=== PATIENT | female | born 1950 | race Caucasian/White ===

== ENCOUNTER → 2017-06-08 | Outpatient (CLI) | payer MEDICARE ==
[~2017-06-08] MED LIST: ACET-1175 PO; ACT35 PO; BACL10TA PO; BACLOFEN PUMP; CALC600T9 PO; CHOL100010 PO; DOCU-94 PO; GADAVIST IV PRN; INTE1KIT4 INJ; MULT-506 PO
--- NOTE | 2017-06-08 12:27 | DIAGNOSTIC IMAGING REPORT ---
KUB CLINICAL HISTORY: Multiple sclerosis. Pain pump positioning. FINDINGS: 2 AP supine abdominal radiographs are obtained. No prior studies are available for comparison at the time of dictation. There is a nonobstructed abdominal bowel gas pattern noting moderate colonic fecal retention. A pain pump projects over the right lower quadrant. Intrathecal leads are in place. A lead projects over the T6 vertebral body. The catheter is intact as visualized. Numerous pelvic phleboliths are observed. Indeterminate calcifications project over the upper abdomen and may be located within the bowel. The lung bases are clear as imaged. The skeletal structures are osteopenic. Mild lumbosacral spondylosis is observed. Large left gluteal calcifications are partially imaged. IMPRESSION: 1. Nonobstructed abdominal bowel gas pattern noting moderate colonic fecal retention. 2. A pain pump projects over the right lower quadrant. The tip of the catheter projects over T6. Electronically signed by: Manuelito Caal M.D. 06/08/2017 12:25 PM Dictated Date/Time: 06/08/2017 12:23 PM
--- NOTE | 2017-06-08 13:44 | DIAGNOSTIC IMAGING REPORT ---
BRAIN COMBO FOR MS CLINICAL HISTORY: 66 years-old Female presenting with multiple sclerosis. TECHNIQUE: Multisequence, multiplanar MR imaging of the brain was performed before and after the administration of intravenous contrast. IV contrast: 6.5 mL of Gadavist. COMPARISON: 09/14/2013. FINDINGS: Ventricular and sulcal prominence proportional to diffuse parenchymal volume loss. Multifocal T2/FLAIR hyperintense foci in the periventricular and subcortical white matter, some of which correlate to T1 hypointense foci. This is in a similar distribution as on prior exam. The brainstem is unaffected. No convincing evidence of new foci of disease. No restricted diffusion or enhancement to suggest active disease. Atrophy of the posterior body of the corpus callosum unchanged. Enhancing linear structure along the lateral aspect of the left caudate likely developmental venous anomaly. No mass effect or midline shift. No hemorrhage or acute territorial infarct. No extra-axial fluid collection. T2 skull base flow voids preserved. Partial opacification of the left posterior ethmoid air cells. IMPRESSION: Stable appearance of the periventricular and subcortical white matter signal abnormality without evidence of restricted diffusion or enhancement to suggest active disease. This is a nonspecific appearance and could be compatible with demyelinating disease among other etiologies. Electronically signed by: Willie Viveros M.D. 06/08/2017 1:43 PM Dictated Date/Time: 06/08/2017 1:36 PM
--- NOTE | 2017-06-08 14:03 | DIAGNOSTIC IMAGING REPORT ---
MRI CERVICAL SPINE COMBO CLINICAL HISTORY: G35 Multiple [id number] TECHNIQUE: Sagittal and axial T1, T2 and STIR images were obtained. Imaging was performed before and after the administration of 6.5 cc of intravenous Gadavist COMPARISON STUDY: 09/14/2013 There are no suspicious areas of marrow replacement. There is mild thinning of the cervical spinal cord most pronounced at the C4-5 through C6-7 levels. C2-3: There is no evidence of disc bulge or focal herniation. There is no spinal or foraminal stenosis. C3-4: There is a small central disc protrusion. There is no spinal or foraminal stenosis. C4-5: There is a small central disc protrusion. There is secondary deformity of the anterior aspect the thecal sac. There is no significant foraminal narrowing C5-6 :There is a mild circumferential disc bulge. There is mild spinal stenosis. There is mild left-sided foraminal narrowing. C6-7: There is a circumferential disc bulge. There is no significant spinal or foraminal stenosis. C7-T1: There is no evidence of disc bulge or focal herniation. There is no evidence of spinal or foraminal stenosis. Postcontrast images reveal no pathologically enhancing lesions. IMPRESSION: 1. Multilevel spondylitic changes similar to the preceding 2012 study. Mild spinal stenosis at the C5-6 level. 2. Mild cervical cord thinning similar to the prior study 3. No focal cord lesions identified. No evidence of pathologic enhancement Electronically signed by: Kartik Nuno M.D. 06/08/2017 2:02 PM Dictated Date/Time: 06/08/2017 1:54 PM
== END | disposition home or self-care (01) ==
LOC: C.MRI 11:39
PROVIDERS: ATTEND Psychiatry & Neurology Neurology
DX: G35 Multiple sclerosis (principal); Z12.31 Encounter for screening mammogram for malignant neoplasm of breast

== ENCOUNTER → 2017-06-08 | Outpatient (CLI) | payer MEDICARE ==
[~2017-06-08] MED LIST changes: -GADAVIST IV PRN
--- NOTE | 2017-06-20 14:33 | MAMMOGRAPHY REPORT ---
THIS REPORT HAS BEEN AMENDED. BILATERAL DIGITAL SCREENING MAMMOGRAM WITH CAD: 06/08/2017 CLINICAL HISTORY: Routine screening. Patient has no complaints. TECHNIQUE: Bilateral CC and MLO views were obtained. Current study was also evaluated with a Compute r Aided Detection (CAD) system. COMPARISON: No prior exams were available for comparison. BREAST COMPOSITION: There are scattered areas of fibroglandular density in both breasts. FINDINGS: The exam is suboptimal due to inability of the patient to adequately position for the exam, particularly the MLO views. There are a few benign-appearing coarse calcifications and mild vascular calcifications in the breast s. There is a 4 mm focal asymmetry in the approximate 9:00 middle one third of the left breast, for which comparison to prior outside mammograms would be useful to assess stability. If the outside exa ms are not obtained in a timely manner, additional spot compression tomosynthesis views and possible ultrasound are recommended. In addition, repeat attempt should be made at positioning for the right MLO view. No other suspicious mass, architectural distortion or cluster of microcalcifications is seen bilzulaya dali. IMPRESSION: ACR BI-RADS CATEGORY 0: INCOMPLETE EVALUATION: NEED ADDITIONAL IMAGING EVALUATION The 4 mm focal asymmetry in the 9:00 left breast is indeterminate. Comparison to prior outside mammog prince would be useful to assess stability. If the outside exams are not obtained in a timely manner, additional spot compression tomosynthesis views and possible ultrasound are recommended. In addition , repeat attempt should be made at positioning for the right MLO view. The patient will be called to schedule an appointment. Approximately 10% of breast cancers are not detected with mammography. A negative mammographic report should not delay biopsy if a clinically suggestive mass is present. Nani Davis M.D. ay/:06/20/2017 14:08:39 Marketing Community Liaison: Darlin CESPEDES(Noe)([place])([place]), [facility] letter sent: Need Priors 0 BI-RADS Code: ACR BI-RADS Category 0: Incomplete Evaluation: Need Additional Imaging Evaluation AMENDMENT: 06/29/2017 Nani Davis M.D. Prior outside mammograms from [facility] dated 09/07/2013, 03/09/2013, 09/28/2011, 06/19/2010, 12/18/2009, 06/10/2009, 03/11/2009, 09/12/2008, 02/28/2008 and breast ultrasounds dated 03/09/2013 an d 12/18/2009 became available for review. The 4 mm focal asymmetry in the 9:00 left breast is new co mpared to prior exams. Additional spot compression tomosynthesis views and targeted ultrasound is re commended. At the time of diagnostic workup in the left breast, the right MLO view should be repeate d for technical factors, to include more posterior tissue. Amended BI-RADS: ACR BI-RADS Category 0: Incomplete Evaluation: Need Additional Imaging Evaluation letter sent: Addl Imaging 0
== END | disposition home or self-care (01) ==
LOC: C.MAMM 10:37
PROVIDERS: ATTEND Family Medicine
DX: Z12.31 Encounter for screening mammogram for malignant neoplasm of breast (principal)

== ENCOUNTER → 2017-07-14 | Outpatient (CLI) | payer MEDICARE ==
--- NOTE | 2017-07-14 12:44 | MAMMOGRAPHY REPORT ---
UNILATERAL LEFT DIGITAL DIAGNOSTIC MAMMOGRAM TOMOSYNTHESIS AND TARGETED LEFT ULTRASOUND: 07/14/2017 CLINICAL HISTORY: 66-year-old woman called back from screening mammography for a new 4.5 mm focal asy mmetry in the approximate 9:00 left breast, not present on prior outside mammograms. TECHNIQUE: Spot compression left CC and MLO to most of this is images were obtained. COMPARISON: Comparison is made to exams dated: 06/08/2017 mammogram - [facility], mammogram, 03/09/2013 mammogram, 09/28/2011 mammogram, 06/19/2010 mammogram, and 12/18/2009 mammo gram - [facility]. BREAST COMPOSITION: There are scattered areas of fibroglandular density in the left breast. FINDINGS: Best seen on the spot compression left CC view is a persistent partially circumscribed and lobulated, 4.4 x 4.3 mm low-density mass.It architectural distortion or microcalcifications. Further evaluation with ultrasound was performed. A repeat right MLO view was obtained. There are vascular calcifications and scattered benign-appeari ng round microcalcifications. More posterior tissue is included when comparing to the previous MLO v iew and no suspicious abnormality is identified. Targeted ultrasound was performed in the medial left breast. In the 9:00 axis, 5 cm from the nipple, there is a lobulated anechoic benign cyst measuring 4.4 x 2.1 x 2.4 mm. This correlates well in sha pe and location as the mammographic mass and is benign. IMPRESSION: ACR BI-RADS CATEGORY 2: BENIGN, TARGETED ULTRASOUND ACR BI-RADS CATEGORY 2: BENIGN The 4.5 mm nodular asymmetry identified mammographically correlates with a benign lobulated anechoic cyst in the 9:00 left breast on ultrasound. Given the benign sonographic features, no further workup is needed at this time. Recommend follow-up at time of next annual screening mammogram. These resu lts and recommendations were discussed with the patient at the time of the exam. Approximately 10% of breast cancers are not detected with mammography. A negative mammographic report should not delay biopsy if a clinically suggestive mass is present. Nani Davis M.D. ay/:07/14/2017 11:58:09 Competitive Athlete: Yajaira CESPEDES(Noe)(M), [facility] letter sent: Normal /2 BI-RADS Code: ACR BI-RADS Category 2: Benign Ultrasound BI-RADS: ACR BI-RADS Category 2: Benign
== END | disposition home or self-care (01) ==
LOC: C.MAMM 10:48
PROVIDERS: ATTEND Specialist
DX: R92.8 Other abnormal and inconclusive findings on diagnostic imaging of breast (principal); N64.89 Other specified disorders of breast

== ENCOUNTER 2019-07-26 16:58 | Inpatient (IN) ==
[2019-07-26 17:42] LABS: Basophils # (auto) 0.01 K/uL (0-0.2); Basophils % (auto) 0.1 %; Hematocrit (blood only) 40.6 % (37-47); Hemoglobin 13.7 g/dL (12.0-16.0); Immature Granulocytes # (auto) 0.04 K/uL (0.00-0.02); Immature Granulocytes % (auto) 0.3 %; Lymphocytes % (auto) 3.9 %; Mean Corpuscular Hemoglobin 31.1 pg (25-34); Mean Corpuscular Hgb Conc 33.7 g/dL (32-36); Mean Corpuscular Volume 92.3 fL (80-100); Mean Platelet Volume 9.3 fL (7.4-10.4); Monocytes # (auto) 1.16 K/uL (0.11-0.59); Monocytes % (auto) 7.6 %; Neutrophils % (auto) 88.1 %; Platelet Count 273 K/uL (130-400); RDW Coefficient of Variation 15.6 % (11.5-14.5); RDW Standard Deviation 52.7 fL (36.4-46.3); White Blood Count 15.31 K/uL (4.8-10.8)
[2019-07-26 17:53] LABS: iSTAT Creatinine 0.3 mg/dl (0.6-1.3); iSTAT Hemoglobin 13.9 g/dl (12.0-16.0); iSTAT Ionized Calcium 1.09 mmol/l (1.12-1.32); iSTAT Potassium 3.7 mEq/L (3.3-5.0)
[2019-07-26 17:59] LABS: INR 1.2 (0.9-1.1); Partial Thromboplastin Ratio 1.1; Partial Thromboplastin Time 30.5 Seconds (21.0-31.0); Prothrombin Time 12.2 Seconds (9.0-12.0)
--- NOTE | 2019-07-26 18:01 | XRay Report ---
XR chest 1V portable CLINICAL HISTORY: Sepsis COMPARISON STUDY: No previous studies for comparison. FINDINGS: Evaluation is difficult given suboptimal positioning. There is no pneumothorax or pleural e ffusion. Note is made of mild elevation of the right hemidiaphragm. There is no evidence for pulmonar y edema. There is mild right basilar opacity. Cardiomediastinal silhouette is unremarkable allowing f or patient rotation. IMPRESSION: 1. Compromised exam given difficulty positioning. Right basilar opacity which may reflect consolidati on or atelectasis. Radiographic follow up is recommended. 2. Mild elevation of the right hemidiaphragm. Electronically signed by: Frederick Cheng M.D. 07/26/2019 6:00 PM
[2019-07-26 18:06] LABS: BUN Creatinine Ratio 19.3 (10-20); Calcium 9.1 mg/dl (8.5-10.1); Creatinine Clr Calc Pharmacy 111.1 ml/min; Est GFR (African American) 119.3; Est GFR (Non-African American) 102.9; Potassium 3.7 mmol/L (3.5-5.1)
[2019-07-26] MEDS ORDERED: PIPERACILLIN/TAZOBACTAM 4.5 GM in DEXTROSE 5% 100 ML IV STA (18:07)
[2019-07-26] MEDS ORDERED: PIPERACILL/TAZOBAC CONSULT ACTIVE PRN (18:07)
[2019-07-26] MEDS ORDERED: LEVOFLOXACIN/D5W 750 MG/150 ML BAG IV STA (18:07)
[2019-07-26 18:09] LABS: Albumin Globulin Ratio 0.6 (0.9-2); Bilirubin,Total 0.6 mg/dl (0.2-1); Globulin 5.1 gm/dl (2.5-4.0); Total Protein 8.1 gm/dl (6.4-8.2)
[2019-07-26] MEDS ORDERED: PIPERACILLIN/TAZOBACTAM 4.5 GM/120 ML BAG IV STA (18:19)
--- NOTE | 2019-07-26 18:55 | Emergency Department Note ---
Entered by Malou Jay acting as a scribe for Cleve Post MD History of Present Illness General Chief complaint: Respiratory Problems Stated complaint: HARD TIME TALKING, SWALLOWING, RESP PROBLEMS Source: patient and family () Mode of arrival: wheelchair Limitations: no limitations History of Present Illness Onset (ago): day(s) 3 Location: chest Radiation: non-radiation Pain Consistency: + constant Relieved By: + none Exacerbated By: + none Associated symptoms: + cough and + fever/chills Treatments prior to arrival: none The patient is a 68 year old female who presents to the ED with complaints of breathing difficulties for the past few days. She is accompanied by her . He states she is having trouble breathing and speaking due to being out of breath. The patient is wheelchair bound due to a history of MS. Her denies any prior history of lung problems. The patient denies any chest pain. Her states she went to her local hospital yesterday and she had chest X- ray and was told she has "sinus drip" but no pneumonia. The patient did "cough up yellow stuff" last night. She also had a fever. Her denies any history of PE. The patient does not take regular steroids. She denies any leg swelling or pain. Home Medications Home Medications Medication Instructions Recorded Confirmed Type calcium carbonate [Calcium 500] 1 tab PO TID 01/18/19 07/26/19 History cholecalciferol (vitamin D3) 0 tab PO DAILY 01/18/19 07/26/19 History [Vitamin D3] multivitamin 1 tab PO DAILY 01/18/19 07/26/19 History risedronate [Actonel] 1 tab PO WK 01/18/19 07/26/19 History nitrofurantoin macrocrystal 50 mg 50 mg PO BID #90 cap 07/23/19 07/26/19 Rx capsule albuterol sulfate [ProAir HFA] 2 puff INHALATION Q4 PRN 07/26/19 07/26/19 History baclofen 0 mcg CONTINUOUS INTRATHECAL 07/26/19 07/26/19 History INFUSION CONTINOUS cefuroxime axetil 500 mg PO BID 07/26/19 07/26/19 History ocrelizumab [Ocrevus] 300 mg IV .[id number] 07/26/19 07/26/19 History Allergies Allergy/AdvReac Type Severity Reaction Status Date / Time No Known Allergies Allergy Verified 07/26/19 17:47 Past Med/Surg History Medical History Presence of intrathecal pump BACLOFEN Spasticity Urinary retention STRAIGHT CATH 2X DAILY Multiple sclerosis UNABLE TO MOVE LE/PARAPESIS 2/2 PROGRESSIVE MULTIPLE SCLEROSIS; LIMITED MOVEM ENT IN HANDS/UE Surgical History Cyst LEFT HIP CALCIUM DEPOSIT REMOVAL History of colonoscopy S/P insertion of intrathecal pump History of tooth extraction Social History Preferred Language: Gabonese Communication Ability: Effective 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 and A total of 10 systems reviewed and were otherwise negative Physical Exam Vital Signs Vital Signs - 24 hr 07/26/19 17:05 07/26/19 17:37 07/26/19 17:39 Temperature 37.6 C H Temperature Source Oral Sepsis Recent Fever Within 48 Hours Yes Sepsis Action Taken by Nursing No Action Required Pulse Rate 121 H 117 H Pulse Rate from SpO2 Sensor Respiratory Rate 24 24 Respiratory Effort / Characteristics Non-Labored Non-Labored Respiratory Depth Normal Normal Respiratory Pattern Regular Regular Blood Pressure 166/86 H Blood Pressure Mean 112 Pulse Oximetry 87 L 87 L Oxygen Delivery Method Nasal Cannula Nasal Cannula Nasal Cannula Oxygen Flow Rate 07/26/19 17:58 07/26/19 18:00 07/26/19 18:15 Temperature Temperature Source Sepsis Recent Fever Within 48 Hours Sepsis Action Taken by Nursing Pulse Rate 114 H 116 H 115 H Pulse Rate from SpO2 Sensor 114 H 116 H 115 H Respiratory Rate 26 H 28 H 26 H Respiratory Effort / Characteristics Respiratory Depth Respiratory Pattern Blood Pressure 164/91 H 161/92 H 168/90 H Blood Pressure Mean 115 115 116 Pulse Oximetry 98 98 95 Oxygen Delivery Method Nasal Cannula Nasal Cannula Nasal Cannula Oxygen Flow Rate 2 07/26/19 18:30 Temperature Temperature Source Sepsis Recent Fever Within 48 Hours Sepsis Action Taken by Nursing Pulse Rate 114 H Pulse Rate from SpO2 Sensor 114 H Respiratory Rate 26 H Respiratory Effort / Characteristics Respiratory Depth Respiratory Pattern Blood Pressure 155/90 H Blood Pressure Mean 111 Pulse Oximetry 97 Oxygen Delivery Method Nasal Cannula Oxygen Flow Rate 2 Constitutional: Vital signs reviewed. The patient is in respiratory distress. She is hypoxemic on room air. Eyes: Pupils are equal round reactive to light. Conjunctiva are noninjected. ENT: Pharynx is clear without erythema or exudate. Mucous membranes are moist. Neck supple without meningeal signs. Respiratory: Patient is tachypneic. Rhonchi diffusely. Breath sounds are equal bilaterally. Cardiovascular: Tachycardic heart rate, regular rhythm. No rubs or gallops. GI: Soft, nondistended and nontender. Bowel sounds are present. Musculoskeletal: No peripheral edema. No lower extremity tenderness. Integumentary: No cyanosis. Neurological: The patient is awake and alert. Wheelchair bound. Psychiatric: Normal affect. Course 1713: The patient was evaluated in room A2 and a complete history and physical were performed. 180: I reassessed the patient at this time. Pulse ox is mid 90s on supplemental oxygen. Hypertensive. Discussed test results. Ordered IV a ntibiotics. 1837: Discussed the patient's case with Dr. Robyn Perea, [facility] Hospitalist. The patient will be evaluated for further management. Consultations Consultation #1: Discussed the patient's case with Dr. Robyn Perea, [facility] Hospitalist. The patient will be evaluated for further management. Time: 18:37 Administered Medications Levofloxacin/Dextrose (Levaquin/D5w) 750 mg in 150 mls @ 100 mls/hr IV Q24H STA; Protocol Stop: 07/26/19 19:36 Last Admin: 07/26/19 18:36 Dose: 100 mls/hr Documented by: [id number] Discontinued Medications Piperacillin Sod/Tazobactam Sod (Zosyn) 4.5 gm in 120 mls @ 240 mls/hr IV NOW STA Stop: 07/26/19 18:48 Last Admin: 07/26/19 18:36 Dose: 240 mls/hr Documented by: [id number] Medical Decision Making Differential Diagnosis The differential diagnoses considered include pneumonia, sepsis, bronchitis, PE and anemia. Medical Records Attestation: I reviewed the patient's medical records. I did perform a limited focused review of portions of the patient's old chart on the electronic medical record. The patient has had no recent pertinent visits to this hospital. Home Medications Current Medication List: was personally reviewed by me Laboratory Data Attestation: I reviewed the patient's lab results. Result diagrams: 07/26/19 17:34 07/26/19 17:34 Lab Results 07/26/19 07/26/19 07/26/19 Range/Units 17:34 17:34 17:34 WBC 15.31 H (4.8-10.8) K/uL RBC 4.40 (4.2-5.4) M/uL Hgb 13.7 (12.0-16.0) g/dL POC Hgb (12.0-16.0) g/dl Hct 40.6 (37-47) % POC Hct (37-47) % MCV 92.3 (80-100) fL MCH 31.1 (25-34) pg MCHC 33.7 (32-36) g/dL RDW Std Deviation 52.7 H (36.4-46.3) fL RDW Coeff of Ananya 15.6 H (11.5-14.5) % Plt Count 273 (130-400) K/uL MPV 9.3 (7.4-10.4) fL Immature Gran % (Auto) 0.3 % Neut % (Auto) 88.1 % Lymph % (Auto) 3.9 % [place] % (Auto) 7.6 % Eos % (Auto) 0.0 % Baso % (Auto) 0.1 % Immature Gran # (Auto) 0.04 H (0.00-0.02) K/uL Neut # (Auto) 13.50 H (1.4-6.5) K/uL Lymph # (Auto) 0.60 L (1.2-3.4) K/uL [place] # (Auto) 1.16 H (0.11-0.59) K/uL Eos # (Auto) 0.00 (0-0.5) K/uL Baso # (Auto) 0.01 (0-0.2) K/uL PT 12.2 H (9.0-12.0) Seconds INR 1.2 H (0.9-1.1) APTT 30.5 (21.0-31.0) Seconds PTT Ratio 1.1 POC Sodium (135-144) mEq/L Sodium 134 L (136-145) mmol/L POC Potassium (3.3-5.0) mEq/L Potassium 3.7 (3.5-5.1) mmol/L POC Chloride (101-112) mEq/L Chloride 97 L (98-107) mmol/L Carbon Dioxide 28 (21-32) mmol/L POC Total CO2 (24-31) mEq/l Anion Gap 9.0 (3-11) POC Anion Gap (16-25) mmol/L POC BUN (7-18) mg/dl BUN 9 (7-18) mg/dl Creatinine 0.46 L (0.6-1.2) mg/dl POC Creatinine (0.6-1.3) mg/dl Est Cr Clr Drug Dosing 111.1 ml/min Est GFR ( Amer) 119.3 Est GFR (Non-Af Amer) 102.9 BUN/Creatinine Ratio 19.3 (10-20) Glucose 91 (70-99) mg/dl POC Glucose (other) (70-99) mg/dl POC Lactic Acid David (0.90-1.70) mmol/L Calcium 9.1 (8.5-10.1) mg/dl POC Ioniz Calcium [place] (1.12-1.32) mmol/l Total Bilirubin 0.6 (0.2-1) mg/dl AST 23 (15-37) U/L ALT 19 (12-78) U/L Alkaline Phosphatase 92 (45-117) U/L POC Troponin I (0-0.045) ng/ml Total Protein 8.1 (6.4-8.2) gm/dl Albumin 3.0 L (3.4-5.0) gm/dl Globulin 5.1 H (2.5-4.0) gm/dl Albumin/Globulin Ratio 0.6 L (0.9-2) 07/26/19 07/26/19 07/26/19 Range/Units 17:37 17:38 17:41 WBC (4.8-10.8) K/uL RBC (4.2-5.4) M/uL Hgb (12.0-16.0) g/dL POC Hgb 13.9 (12.0-16.0) g/dl Hct (37-47) % POC Hct 41 (37-47) % MCV (80-100) fL MCH (25-34) pg MCHC (32-36) g/dL RDW Std Deviation (36.4-46.3) fL RDW Coeff of Ananya (11.5-14.5) % Plt Count (130-400) K/uL MPV (7.4-10.4) fL Immature Gran % (Auto) % Neut % (Auto) % Lymph % (Auto) % [place] % (Auto) % Eos % (Auto) % Baso % (Auto) % Immature Gran # (Auto) (0.00-0.02) K/uL Neut # (Auto) (1.4-6.5) K/uL Lymph # (Auto) (1.2-3.4) K/uL [place] # (Auto) (0.11-0.59) K/uL Eos # (Auto) (0-0.5) K/uL Baso # (Auto) (0-0.2) K/uL PT (9.0-12.0) Seconds INR (0.9-1.1) APTT (21.0-31.0) Seconds PTT Ratio POC Sodium 134 L (135-144) mEq/L Sodium (136-145) mmol/L POC Potassium 3.7 (3.3-5.0) mEq/L Potassium (3.5-5.1) mmol/L POC Chloride 97 L (101-112) mEq/L Chloride (98-107) mmol/L Carbon Dioxide (21-32) mmol/L POC Total CO2 26 (24-31) mEq/l Anion Gap (3-11) POC Anion Gap 15.0 L (16-25) mmol/L POC BUN 6 L (7-18) mg/dl BUN (7-18) mg/dl Creatinine (0.6-1.2) mg/dl POC Creatinine 0.3 L (0.6-1.3) mg/dl Est Cr Clr Drug Dosing ml/min Est GFR ( Amer) Est GFR (Non-Af Amer) BUN/Creatinine Ratio (10-20) Glucose (70-99) mg/dl POC Glucose (other) 96 (70-99) mg/dl POC Lactic Acid David 2.37 H (0.90-1.70) mmol/L Calcium (8.5-10.1) mg/dl POC Ioniz Calcium [place] 1.09 L (1.12-1.32) mmol/l Total Bilirubin (0.2-1) mg/dl AST (15-37) U/L ALT (12-78) U/L Alkaline Phosphatase (45-117) U/L POC Troponin I < 0.03 (0-0.045) ng/ml Total Protein (6.4-8.2) gm/dl Albumin (3.4-5.0) gm/dl Globulin (2.5-4.0) gm/dl Albumin/Globulin Ratio (0.9-2) Imaging Data Radiologist's Impression: Radiology results as stated below per my review and the radiologist's interpretation: XR chest 1V portable CLINICAL HISTORY: Sepsis COMPARISON STUDY: No previous studies for comparison. FINDINGS: Evaluation is difficult given suboptimal positioning. There is no pneumothorax or pleural effusion. Note is made of mild elevation of the right hemidiaphragm. There is no evidence for pulmonary edema. There is mild right basilar opacity. Cardiomediastinal silhouette is unremarkable allowing for patient rotation. IMPRESSION: 1. Compromised exam given difficulty positioning. Right basilar opacity which may reflect consolidation or atelectasis. Radiographic follow up is recommended. 2. Mild elevation of the right hemidiaphragm. Electronically signed by: Frederick Cheng M.D. 07/26/2019 6:00 PM ECG Data Attestation: I personally reviewed and interpreted this ECG as follows: Indication: SOB/dyspnea Rate (beats per minute): 118 Rhythm: sinus tachycardia Findings: no PVC and no ST elevation Blood Pressure Blood Pressure Findings: Elevated blood pressure Blood Pressure Disposition: further management by hospitalist JULIANNA Narrative I did evaluate the patient as noted above. Patient is presenting with respiratory distress and hypoxemia. She was placed on supplemental oxygen. Her O2 sat went up to 96 on 2 L nasal cannula. IV access was established. The patient was placed on a continuous environmental monitoring specialist. I did order and personally review the patient's 12-lead EKG as described above. Her twelve-lead EKG does not demonstrate any acute ischemia. I did order and personally reviewed the images of the patient's chest x-ray as described above. She does have a right lower lobe infiltrate. She is presenting with a productive cough and fever. I did order and review the patient's blood work as noted in the electronic medical record. Her white blood cell count and lactic acid are elevated. Troponin is negative. After blood cultures were obtained the patient was treated with IV Levaquin and Zosyn. I did reassess the patient. She is more comfortable on oxygen. I did discuss the test results with the patient. I did recommend hospitalization. I did discuss the case with the hospitalist and casework supervisor. Impression & Plan Sepsis, Hypoxia, Right lower lobe pneumonia Critical Care Time Critical Care Time: Yes Total Critical Care Time: 35 I have personally spent approximately 35 minutes of critical care time in the direct management of this patient. This includes bedside care, interpretation of diagnostic studies, and testing, discussion with consultants, patient, and family members, and other required patient management activities. This 35 minut es is in excess of all separately billable procedures. : Sepsis Qualifiers: Sepsis type: sepsis due to unspecified organism Sepsis acute organ dysfunction status: unspecified Qualified Code(s): A41.9 - Sepsis, unspecified organism Right lower lobe pneumonia Qualifiers: Pneumonia type: due to unspecified organism Qualified Code(s): J18.1 - Lobar pneumonia, unspecified organism The scribe's documentation has been prepared under my direction and personally reviewed by me in its entirety. I confirm that the note above accurately reflects all work, treatment, procedures, and medical decision making performed by me.
[2019-07-26 21:21] LABS: Appearance Urine Clear (Clear); Bacteria Urine Automated Negative (Negative); Bilirubin Urine Negative (Negative); Blood Urine 1+ (Negative); Color Urine Yellow; Epithelial Cell Urine Auto >30 /lpf (0-5); Glucose Urine UA Negative (Negative); Ketones Urine 2+ (Negative); Leukocyte Esterase Urine 2+ (Negative); Nitrite Urine Negative (Negative); Protein Urine 1+ (Negative); Specific Gravity Urine 1.018 (1.000-1.030); Urobilinogen Urine Negative (Negative)
[2019-07-26 21:33] LABS: Renal Epithelial Cells Urine 0-5 /lpf (0-5)
--- NOTE | 2019-07-26 21:52 | History & Physical Report ---
Date of Service July 26, 2019 Assessment & Plan (1) Sepsis: 68 yo F with sepsis with multiple possible sources such as urinary and lung. Sepsis possible lung possible urinary source - UCx pending, BCx x2 pending, repeat lactate pending. - Light fluids given congestion on CXR NSS 50mL/hr - Repeat CXR tomorrow AM. - Vancomycin per pharmacy, cefepime 2g IV Q12H to cover urinary and lung sources, can narrow as results come. - BMP, CBC, Mg for AM. - O2 as needed to maintain SpO2 >92%, currently on 2LNC. - Respiratory therapy for chest vest QIDR. - Levalbuterol 0.63 QIDR. - Straight caths Q12H. Multiple sclerosis - continue home medications. - confer with Neurology tomorrow regarding whether she can get her Ocrevus in hospital during admission. External hemorrhoid - Anusol BID q7 days. Skin lesion lower back - possible decubitus ulcer developing, present on admission. - Skin is intact. - Wound care nurse consulted. Dispo: Telemetry FEN: Regular as tolerated, aspiration precautions DVT ppx: heparin 5000u Q8H Code Status: FULL CODE (2) Right lower lobe pneumonia: (3) Urinary retention: (4) Multiple sclerosis: (5) External hemorrhoid: (6) Skin lesion of back: History of Present Illness Chief Complaint: shortness of breath Primary Care Provider: Maury Johnston MD 68 yo F PMHx MS, urinary retention with straight catheter at home, recurrent UTI presented to ED for shortness of breath found to be hypoxic to 87% on RA, with tachycardia and tachypnea, lactate elevated to 2.37. CXR showed RLL infiltrate suggestive of pneumonia, UA and UCx sent, BCx x2 sent. Started on broad spectrum Abx and fluids, 2LNC given for hypoxia, admit team consulted. Here with who provides some history as well. On interview pt reports that she feels much better at present moment on 2LNC. 2 days ago started to have shortness of breath which she does not have at baseline. Went to [facility] near home and CXR did not show any pathology per patient's , was given albuterol inhaler to go home and advised to seek care if any worse. Today woke up feeling more unwell, cough productive of yellow sputum, increased SOB without CP, without nausea or vomiting, no changes in bowels. No fevers at home however endorses subjective chills. Denies pain or soreness in legs. Of note, history of recurrent UTI, straight caths at home, on daily macrobid prophylaxis per Dr. Davis. No hematuria, no abdominal pain. Allergies Allergy/AdvReac Type Severity Reaction Status Date / Time No Known Allergies Allergy Verified 07/26/19 17:47 Home Medications Home Medications Medication Instructions Recorded Confirmed Type calcium carbonate [Calcium 500] 1 tab PO TID 01/18/19 07/26/19 History cholecalciferol (vitamin D3) 0 tab PO DAILY 01/18/19 07/26/19 History [Vitamin D3] multivitamin 1 tab PO DAILY 01/18/19 07/26/19 History risedronate [Actonel] 1 tab PO WK 01/18/19 07/26/19 History nitrofurantoin macrocrystal 50 mg 50 mg PO BID #90 cap 07/23/19 07/26/19 Rx capsule albuterol sulfate [ProAir HFA] 2 puff INHALATION Q4 PRN 07/26/19 07/26/19 History baclofen 0 mcg CONTINUOUS INTRATHECAL 07/26/19 07/26/19 History INFUSION CONTINOUS cefuroxime axetil 500 mg PO BID 07/26/19 07/26/19 History ocrelizumab [Ocrevus] 300 mg IV .[id number] 07/26/19 07/26/19 History Past Med/Surg History Medical History Presence of intrathecal pump BACLOFEN Spasticity Urinary retention STRAIGHT CATH 2X DAILY Multiple sclerosis UNABLE TO MOVE LE/PARAPESIS 2/2 PROGRESSIVE MULTIPLE SCLEROSIS; LIMITED MOVEMENT IN HANDS/UE Surgical History Cyst LEFT HIP CALCIUM DEPOSIT REMOVAL History of colonoscopy S/P insertion of intrathecal pump History of tooth extraction Social History Preferred Language: American Communication Ability: Effective [employer] Required: No Beliefs That Will Affect Care: None marital status: Current Living Situation: Spouse current occupational status: disabled Other Information That Helps Us Care for You: No Feels Safe at Home: Yes Safety Concerns: Feels Safe At This Time Smoking Status: Unknown if ever smoked Hx Alcohol Use: No Hx Substance Use: No Review of Systems Constitutional: + chills and + malaise; no fever Respiratory: + cough, + dyspnea and + sputum production (yellow); no wheezing Cardiovascular: no chest pain, no palpitations, no syncope and no edema Gastrointestinal: no abdominal pain, no nausea, no vomiting, no constipation and no diarrhea/loose stools Genitourinary: no hematuria Musculoskeletal: no back pain Neurologic: is quadriplegic at baseline Physical Exam Constitutional: WD/WN, vitals as above Eyes: PERRL, conjunctivae normal, anicteric sclerae ENMT: external ear and nose normal, oropharynx normal Respiratory: + tachypneic Auscultation: + rhonchi (diffuse); no wheezes Cardiovascular: Rate/Rhythm: + tachycardic Heart Sounds: no murmur Extremities: no edema Gastrointestinal (Abdomen): normal bowel sounds, soft, nontender, no hepatosplenomegaly Skin: rectum with external hemorrhoids. Area of discoloration directly above rectum at area of coccyx that is discolored but with skin intact. Possible early decubitus ulcer present on admission. Psychiatric: A+Ox3, euthymic affect Genitourinary: catheter draining dark yellow clear urine. Results & Data Vital Signs (Past 12 Hours) Vital Signs Temp Pulse Resp BP Pulse Ox 07/26/19 20:45 126 H 23 124/79 91 07/26/19 20:30 125 H 21 123/79 93 07/26/19 20:15 127 H 23 122/79 91 07/26/19 20:00 128 H 24 124/76 92 07/26/19 19:45 127 H 24 131/81 94 07/26/19 19:30 130 H 24 141/82 H 94 07/26/19 19:15 124 H 24 145/89 H 94 07/26/19 19:00 122 H 25 H 152/87 H 96 07/26/19 18:45 117 H 26 H 158/96 H 96 07/26/19 18:30 114 H 26 H 155/90 H 97 07/26/19 18:15 115 H 26 H 168/90 H 95 07/26/19 18:00 116 H 28 H 161/92 H 98 07/26/19 17:58 114 H 26 H 164/91 H 98 07/26/19 17:37 117 H 24 87 L 07/26/19 17:05 37.6 C H 121 H 24 166/86 H 87 L Laboratory Results Laboratory Results - last 24 hr 07/26/19 07/26/19 07/26/19 17:34 17:34 17:34 WBC 15.31 H RBC 4.40 Hgb 13.7 POC Hgb Hct 40.6 POC Hct MCV 92.3 MCH 31.1 MCHC 33.7 RDW Std Deviation 52.7 H RDW Coeff of Ananya 15.6 H Plt Count 273 MPV 9.3 Immature Gran % (Auto) 0.3 Neut % (Auto) 88.1 Lymph % (Auto) 3.9 Branch % (Auto) 7.6 Eos % (Auto) 0.0 Baso % (Auto) 0.1 Immature Gran # (Auto) 0.04 H Neut # (Auto) 13.50 H Lymph # (Auto) 0.60 L Branch # (Auto) 1.16 H Eos # (Auto) 0.00 Baso # (Auto) 0.01 PT 12.2 H INR 1.2 H APTT 30.5 PTT Ratio 1.1 POC Sodium Sodium 134 L POC Potassium Potassium 3.7 POC Chloride Chloride 97 L Carbon Dioxide 28 POC Total CO2 Anion Gap 9.0 POC Anion Gap POC BUN BUN 9 Creatinine 0.46 L POC Creatinine Est Cr Clr Drug Dosing 111.1 Est GFR ( Amer) 119.3 Est GFR (Non-Af Amer) 102.9 BUN/Creatinine Ratio 19.3 Glucose 91 POC Glucose (other) POC Lactic Acid David Calcium 9.1 POC Ioniz Calcium Jesenia Total Bilirubin 0.6 AST 23 ALT 19 Alkaline Phosphatase 92 POC Troponin I Total Protein 8.1 Albumin 3.0 L Globulin 5.1 H Albumin/Globulin Ratio 0.6 L Urine Color Urine Appearance Urine pH Ur Specific [place] Urine Protein Urine Glucose (UA) Urine Ketones Urine Blood Urine Nitrite Urine Bilirubin Urine Urobilinogen Ur Leukocyte Esterase Urine WBC (Auto) Urine RBC (Auto) U Hyaline Cast (Auto) U Epithel Cells (Auto) Urine Bacteria (Auto) Ur Renal Epithelial Cell Influenza Type A Ag Influenza Type B Ag 07/26/19 07/26/19 07/26/19 17:37 17:38 17:41 WBC RBC Hgb POC Hgb 13.9 Hct POC Hct 41 MCV MCH MCHC RDW Std Deviation RDW Coeff of Ananya Plt Count MPV Immature Gran % (Auto) Neut % (Auto) Lymph % (Auto) Branch % (Auto) Eos % (Auto) Baso % (Auto) Immature Gran # (Auto) Neut # (Auto) Lymph # (Auto) Branch # (Auto) Eos # (Auto) Baso # (Auto) PT INR APTT PTT Ratio POC Sodium 134 L Sodium POC Potassium 3.7 Potassium POC Chloride 97 L Chloride Carbon Dioxide POC Total CO2 26 Anion Gap POC Anion Gap 15.0 L POC BUN 6 L BUN Creatinine POC Creatinine 0.3 L Est Cr Clr Drug Dosing Est GFR ( Amer) Est GFR (Non-Af Amer) BUN/Creatinine Ratio Glucose POC Glucose (other) 96 POC Lactic Acid David 2.37 H Calcium POC Ioniz Calcium Jesenia 1.09 L Total Bilirubin AST ALT Alkaline Phosphatase POC Troponin I < 0.03 Total Protein Albumin Globulin Albumin/Globulin Ratio Urine Color Urine Appearance Urine pH Ur Specific [place] Urine Protein Urine Glucose (UA) Urine Ketones Urine Blood Urine Nitrite Urine Bilirubin Urine Urobilinogen Ur Leukocyte Esterase Urine WBC (Auto) Urine RBC (Auto) U Hyaline Cast (Auto) U Epithel Cells (Auto) Urine Bacteria (Auto) Ur Renal Epithelial Cell Influenza Type A Ag Influenza Type B Ag 07/26/19 07/26/19 19:05 20:59 WBC RBC Hgb POC Hgb Hct POC Hct MCV MCH MCHC RDW Std Deviation RDW Coeff of Ananya Plt Count MPV Immature Gran % (Auto) Neut % (Auto) Lymph % (Auto) Branch % (Auto) Eos % (Auto) Baso % (Auto) Immature Gran # (Auto) Neut # (Auto) Lymph # (Auto) Branch # (Auto) Eos # (Auto) Baso # (Auto) PT INR APTT PTT Ratio POC Sodium Sodium POC Potassium Potassium POC Chloride Chloride Carbon Dioxide POC Total CO2 Anion Gap POC Anion Gap POC BUN BUN Creatinine POC Creatinine Est Cr Clr Drug Dosing Est GFR ( Amer) Est GFR (Non-Af Amer) BUN/Creatinine Ratio Glucose POC Glucose (other) POC Lactic Acid David Calcium POC Ioniz Calcium Jes[place] Total Bilirubin AST ALT Alkaline Phosphatase POC Troponin I Total Protein Albumin Globulin Albumin/Globulin Ratio Urine Color Yellow Urine Appearance Clear Urine pH 6.0 Ur Specific [place] 1.018 Urine Protein 1+ H Urine Glucose (UA) Negative Urine Ketones 2+ H Urine Blood 1+ H Urine Nitrite Negative Urine Bilirubin Negative Urine Urobilinogen Negative Ur Leukocyte Esterase 2+ H Urine WBC (Auto) 10-30 H Urine RBC (Auto) 5-10 H U Hyaline Cast (Auto) 1-5 U Epithel Cells (Auto) >30 H Urine Bacteria (Auto) Negative Ur Renal Epithelial Cell 0-5 Influenza Type A Ag Neg for Influ A Influenza Type B Ag Neg for Influ B Diagnostic Findings CXR 07/26/19: IMPRESSION: 1. Compromised exam given difficulty positioning. Right basilar opacity which may reflect consolidation or atelectasis. Radiographic follow up is recommended. 2. Mild elevation of the right hemidiaphragm. Code Status & VTE Plan Code Status FULL VTE Prophylaxis Plan VTE Prophylaxis will be ordered: Yes Supervising Physician Co-Signing Physician Notes Attending addendum: I have supervised the medical residents activities, and agree with the H&P unless as otherwise noted. Assessment and Plan: Sepsis- Potential sources including and pulmonary. Follow urine culture and sensitivities. Follow sputum Gram stain and culture. Follow blood cultures. Vancomycin IV per pharmacokinetic monitoring. Cefepime 2 g IV every 12 hours. Xopenex 0.63 4 times daily. Nasal cannula oxygen, titrate to keep pulse ox greater than or equal to 92%. Multiple sclerosis- Continue usual home medications. Consult neurology. Remainder of orders and notations as noted. PG Care Time/CCT Total # of Minutes Spent Total Time Spent with Patient: Total time spent is greater than 50% in coordination of care (as documented) at patient's floor/unit and/or counseling patient: Resident Activity Tracking Resident Involvement: Resident Care Provided Care Provided: Adult Hospital Medicine (1) Sepsis Sepsis acute organ dysfunction status: unspecified Sepsis type: sepsis due to unspecified organism Qualified Code(s): A41.9 - Sepsis, unspecified organism (2) Right lower lobe pneumonia Pneumonia type: due to unspecified organism Qualified Code(s): J18.1 - Lobar pneumonia, unspecified organism
[2019-07-26] MEDS ORDERED: POLYETHYLENE (MIRALAX) 17 GM PACK PO PRN (22:42)
[2019-07-26] MEDS ORDERED: MAGNESIUM HYDROXIDE SUSP 30 ML UDC PO PRN (22:42)
[2019-07-26] MEDS ORDERED: SODIUM CHLORIDE 0.9% 1000ML 1,000 ML IV SCH (22:42)
[2019-07-26] MEDS ORDERED: HEPARIN SOD 5,000 UNIT/0.5 ML VIAL SQ SCH (22:42)
[2019-07-26] MEDS ORDERED: VANCOMYCIN CONSULT ACTIVE PRN (22:42)
[2019-07-26] MEDS ORDERED: ALUMINUM/MAGNESIUM SUSP 30 ML UDC PO PRN (22:42)
[2019-07-26] MEDS ORDERED: VANCOMYCIN HCL 1,000 MG in SODIUM CHLORIDE 0.9% 250 ML IV SCH (22:42)
[2019-07-26] MEDS ORDERED: VANCOMYCIN HCL 1,500 MG in SODIUM CHLORIDE 0.9% 500 ML IV ONE (23:15)
--- NOTE | 2019-07-27 00:24 | Communication Note ---
Date of Service: July 27, 2019 I personally interviewed and examined the patient. I agree with history of present illness and physical exam mentioned above, I also performed my own history taking and examination. Past medical history and review of system has been obtained by myself I reviewed all pertinent labs and studies Reviewed current medications I discussed and formulated of the assessment and plan mentioned above. Please refer to the Summary mentioned below. Chief complaint, shortness of breath HPI 68-year-old lady with advanced multiple sclerosis, functional quadriplegia, bedbound, urinary retention with recurrent UTIs. Patient does do straight cath at home. In the last few days patient developed shortness of breath, low oxygen saturation and was able to cough one time big chunk of yellowish sputum. As per family her respiratory muscles are weak she is unable to clear her secretions. In ED she was noticed to find right middle lobe density on x-ray, she was found to have leukocytosis and hypoxia of 87% on room air. She also had tachycardia and slightly positive lactic acid. Review of system as mentioned in HPI rest of the review system is negative General Appearance: Frail elderly female in moderate acute distress Eyes: normal Sclerae, extraocular muscle intact ENT: hearing grossly normal Neck: supple Respiratory/Chest: Decreased air entry bilaterally, scattered rhonchi Cardiovascular: regular rate, rhythm, sinus tachycardia, no murmur Abdomen: non tender, soft, no masses Extremities: no edema musculoskeletal: no significant swelling or inflammation, deformity in all joints of upper and lower extremities Neurologic/Psychiatric: Awake alert oriented times place and person quadriplegic, sensation intact cranial nerves II-12 appear to be intact Skin: normal color, warm/dry, no rash Assessment Severe sepsis present on admission secondary to below Acute respiratory failure with hypoxemia secondary to below Right middle lobe infiltrate/pneumonia, healthcare associated due to multiple exposure to antibiotics due to her UTI Pyuria with possible UTI Functional quadriplegia/bedbound/advanced multiple sclerosis Plan Admit patient to telemetry Vitals per protocol Oxygen supplement as needed Initiate cefepime/Vanco Blood cultures/urine culture Sputum cultures if positive if possible Urine Legionella/urine strep Chest PT for pulmonary toilet Continue home meds as indicated Patient is full code as per family discussion Kevin Perea MD, [facility] hospitalist group
[2019-07-27] MEDS: CEFEPIME 2,000 MG in SYRINGE 7.5 ML IV SCH ×2 (02:47→14:32)
[2019-07-27] MEDS: ACETAMINOPHEN 325 MG TAB PO PRN ×2 (03:09→18:27)
[2019-07-27 06:01] LABS: Basophils # (auto) 0.01 K/uL (0-0.2); Basophils % (auto) 0.1 %; Eosinophils # (auto) 0.01 K/uL (0-0.5); Eosinophils % (auto) 0.1 %; Hematocrit (blood only) 34.2 % (37-47); Hemoglobin 11.4 g/dL (12.0-16.0); Immature Granulocytes # (auto) 0.02 K/uL (0.00-0.02); Immature Granulocytes % (auto) 0.1 %; Lymphocytes # (auto) 0.72 K/uL (1.2-3.4); Lymphocytes % (auto) 5.2 %; Mean Corpuscular Hemoglobin 30.3 pg (25-34); Mean Corpuscular Hgb Conc 33.3 g/dL (32-36); Mean Platelet Volume 9.3 fL (7.4-10.4); Monocytes # (auto) 0.82 K/uL (0.11-0.59); Monocytes % (auto) 5.9 %; Neutrophils # (auto) 12.22 K/uL (1.4-6.5); Neutrophils % (auto) 88.6 %; Platelet Count 242 K/uL (130-400); RDW Coefficient of Variation 15.3 % (11.5-14.5); RDW Standard Deviation 51.2 fL (36.4-46.3); Red Blood Count 3.76 M/uL (4.2-5.4)
[2019-07-27 06:43] LABS: BUN Creatinine Ratio 24.9 (10-20); Calcium 8.2 mg/dl (8.5-10.1); Creatinine Clr Calc Pharmacy 150.3 ml/min; Est GFR (African American) 131.8; Est GFR (Non-African American) 113.7; Magnesium 1.8 mg/dl (1.8-2.4)
[2019-07-27] MEDS: LEVALBUTEROL HCL 0.63 MG/3 ML NEB INH SCH ×4 (07:33→19:46)
--- NOTE | 2019-07-27 07:40 | XRay Report ---
XR chest 1V portable CLINICAL HISTORY: Possible pneumonia. COMPARISON STUDY: Chest radiograph July 26, 2019. FINDINGS: The patient is rotated. There is no pneumothorax. No definite pleural effusion is noted. Le ft lung is clear. Right basilar opacity has increased. There is no evidence for pulmonary edema. IMPRESSION: Increase in right basilar opacity which favors pneumonia. Electronically signed by: Frederick Cheng M.D. 07/27/2019 7:39 AM
--- NOTE | 2019-07-27 07:53 | Pharmacy Report ---
Pharmacy Abx Initial Consult - Date of Service July 27, 2019 - Pharmacy Dosing Scope Date of Consult: 07/26/19 Consultation requested by: Dr. Boudreaux Pharmacy is consulted to initiate Vancomycin IV dosing therapy, order appropriate labs and adjust drug dose/frequency. - Subjective The patient is a 68 year old F admitted on 07/26/19 21:31 with nosocomial pneumonia, possible UTI. UA suggestive of UTI. Febrile this morning, elevated WBC. PMH significant for advanced MS, straight cath at home, recurrent UTIs, on chronic Macrobid for prophylaxis. - Objective Height: 5 ft 6 in Weight: 62.6 kg Vital Signs (Past 12hrs): Vital Signs Temp Pulse Pulse Resp BP BP BP 07/27/19 07:07 36.8 C 98 H 20 95/62 L 07/27/19 05:03 37.1 C 07/27/19 02:58 38.1 C H 119 H 28 H 120/67 07/27/19 01:33 120 H 07/26/19 22:44 36.8 C 120 H 125/76 07/26/19 21:45 120 H 23 124/73 07/26/19 21:30 121 H 24 124/74 07/26/19 21:15 123 H 24 120/75 07/26/19 21:00 122 H 24 122/77 07/26/19 20:45 37.3 C 126 H 23 124/79 07/26/19 20:30 125 H 21 123/79 07/26/19 20:15 127 H 23 122/79 07/26/19 20:00 128 H 24 124/76 07/26/19 19:45 127 H 24 131/81 Pulse Ox 07/27/19 07:07 98 07/27/19 05:03 07/27/19 02:58 93 07/27/19 01:33 07/26/19 22:44 87 L 07/26/19 21:45 92 07/26/19 21:30 92 07/26/19 21:15 90 07/26/19 21:00 92 07/26/19 20:45 91 07/26/19 20:30 93 07/26/19 20:15 91 07/26/19 20:00 92 07/26/19 19:45 94 Lab Results (24hrs): Laboratory Tests (24 Hours) 09/07/27/19 07/26/19 05:21 05:21 23:01 WBC 13.80 H Neut # (Auto) 12.22 H Creatinine 0.34 L Est Cr Clr Drug Dosing 150.3 Procalcitonin 0.20 07/26/19 07/26/19 17:34 17:34 WBC 15.31 H Neut # (Auto) 13.50 H Creatinine 0.46 L Est Cr Clr Drug Dosing 111.1 Procalcitonin Micro Results: 07/26/19 20:59 Urine Culture - Pending Urine,Straight Cath 07/26/19 17:34 Aerobic Blood Culture - Pending Blood Anaerobic Blood Culture - Pending 07/26/19 17:34 Aerobic Blood Culture - Pending Blood Anaerobic Blood Culture - Pending - Risk Factors for Resistance * Immunocompromised - advanced MS * Antimicrobial use within the last 90 days - Macrobid daily for UTI Prophylaxis. Cefuroxime started 07/25. * Other antibiotics over past 6 months include: Cipro, Doxycycline, Keflex, Bactrim - Assessment & Plan Assessment 68 year old F with advanced MS, admitted for pneumonia and UTI. Treating as nosocomial pneumonia in the setting of multiple antibiotic use in past. Increased WBC, febrile, Procal 0.2. Plan Vancomycin and Cefepime for treatment of pneumonia and UTI Vancomycin IV * Estimated PK Parameters: Vd 0.7L/kg, Galileo 0.1 hr-1, t1/2 6.7hr * Loading dose: 1500 mg (25 mg/kg) * Maintenance dose: 1000 mg IV (16 mg/kg) every 8 hours * Goal trough level for pneumonia : 15 to 20 mcg/mL * Trough level ordered for 07/28/19 * SCr 0.3mg/dl - likely not technical support representative of true renal function, will dose aggressively to start but will consider this when evaluating first trough level. Cefepime: * 2g IV q12 hours - OK for renal function, may recommend Q8H if patient not improving on Q12H dosing. Pharmacy will continue to follow and will adjust dose/frequency as necessary. Thank you.
[2019-07-27] MEDS ORDERED: VANCOMYCIN HCL 1,000 MG in SODIUM CHLORIDE 0.9% 250 ML IV SCH (08:00)
[2019-07-27] MEDS ORDERED: POTASSIUM CHLORIDE 40 MEQ in SODIUM CHLORIDE 0.9% 1000ML 500 ML IV ONE (08:00)
[2019-07-27] MEDS ORDERED: HEPARIN SOD 5,000 UNIT/0.5 ML VIAL SQ SCH (08:00)
[2019-07-27] MEDS: LACTOBACILLUS ACIDOPHILUS 1 GM PACK PO SCH ×3 (08:00→17:08)
[2019-07-27] MEDS: MULTIVITAMIN TAB PO SCH (08:00)
[2019-07-27] MEDS: CALCIUM CARBONATE 1250MG TAB PO SCH ×3 (08:01→20:30)
[2019-07-27] MEDS: ANUSOL SUPP 1 EA PR SCH ×2 (08:01→20:22)
[2019-07-27] MEDS: HEPARIN SOD 5,000 UNIT/0.5 ML VIAL SQ SCH ×2 (08:08→20:32)
--- NOTE | 2019-07-27 15:49 | Hospitalist Progress Note ---
Date of Service July 27, 2019 Assessment & Plan (1) Right lower lobe pneumonia: CXR on 07/26 was equivocal; however, CXR on 07/27 favored RLL pneumonia. - Initially on vanc/cefepime - MRSA swab negative on 07/27 -> Stopped vancomycin - Wean O2 as able (2) Multiple sclerosis: Long-standing. 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 Sees Dr. Ndiaye. - Alerted Dr. Ndiaye on 07/27 to her admission. - Normally would get her next ocrelizumab infusion on 08/06. Patient and wondering if we can give it early. - Gomez for now; will remove as able - Patient straight caths for neurogenic bladder (3) Sepsis: Initially with sepsis. - Now resolved on abx (4) DVT prophylaxis: Heparin 5000 Q12h Subjective Feeling much better than when she arrived. Still with some minimal cough, but otherwise doing ok. Review of Systems Review of Systems: All systems reviewed & are unremarkable except as noted in HPI & below Physical Exam Constitutional: WD/WN, vitals as above + physical limitations and cooperative Eyes: EOM intact bilaterally; no conjunctival abnormality ENMT: external ear and nose normal, oropharynx normal Neck: trachea midline, no thyromegaly normal visual inspection Respiratory: normal respiratory effort, lungs clear to auscultation no respiratory distress Cardiovascular: RRR, no murmur, no edema Gastrointestinal (Abdomen): Inspection/Auscultation: abdomen normal to inspection; abdomen not distended Musculoskeletal: Head/Neck/Chest: normocephalic, head atraumatic and + limited ROM of neck Skin: no rashes, warm and dry Neurologic: moves all extremities and awake Psychiatric: Orientation: alert, oriented to person and cooperative Results & Data Vital Signs (Past 12 Hours) Vital Signs Temp Pulse Resp BP Pulse Ox 07/27/19 15:25 76 20 94 07/27/19 15:02 36.4 C L 93 H 16 132/79 97 07/27/19 11:08 83 18 96 07/27/19 10:57 36.4 C L 95 H 18 116/94 97 07/27/19 07:49 96 H 18 97 07/27/19 07:07 36.8 C 98 H 20 95/62 L 98 07/27/19 05:03 37.1 C PG Care Time/CCT Total # of Minutes Spent Total Time Spent with Patient: Total time spent is greater than 50% in coordination of care (as documented) at patient's floor/unit and/or counseling p atient: (1) Right lower lobe pneumonia Pneumonia type: due to unspecified organism Qualified Code(s): J18.1 - Lobar pneumonia, unspecified organism (2) Sepsis Sepsis acute organ dysfunction status: unspecified Sepsis type: sepsis due to unspecified organism Qualified Code(s): A41.9 - Sepsis, unspecified organism
[2019-07-28] MEDS: CEFEPIME 2,000 MG in SYRINGE 7.5 ML IV SCH ×2 (01:28→13:22)
[2019-07-28 06:09] LABS: Basophils # (auto) 0.02 K/uL (0-0.2); Basophils % (auto) 0.2 %; Eosinophils # (auto) 0.11 K/uL (0-0.5); Eosinophils % (auto) 1.2 %; Hematocrit (blood only) 37.9 % (37-47); Hemoglobin 12.7 g/dL (12.0-16.0); Immature Granulocytes # (auto) 0.02 K/uL (0.00-0.02); Immature Granulocytes % (auto) 0.2 %; Lymphocytes # (auto) 0.66 K/uL (1.2-3.4); Lymphocytes % (auto) 7.4 %; Mean Corpuscular Hemoglobin 30.8 pg (25-34); Mean Corpuscular Hgb Conc 33.5 g/dL (32-36); Mean Corpuscular Volume 91.8 fL (80-100); Mean Platelet Volume 9.4 fL (7.4-10.4); Monocytes # (auto) 0.25 K/uL (0.11-0.59); Monocytes % (auto) 2.8 %; Neutrophils # (auto) 7.88 K/uL (1.4-6.5); Neutrophils % (auto) 88.2 %; Platelet Count 257 K/uL (130-400); RDW Coefficient of Variation 15.4 % (11.5-14.5); Red Blood Count 4.13 M/uL (4.2-5.4); White Blood Count 8.94 K/uL (4.8-10.8)
[2019-07-28 06:48] LABS: BUN Creatinine Ratio 24.9 (10-20); Calcium 9.1 mg/dl (8.5-10.1); Creatinine Clr Calc Pharmacy 134.5 ml/min; Est GFR (Non-African American) 109.6; Potassium 3.6 mmol/L (3.5-5.1)
[2019-07-28] MEDS: LEVALBUTEROL HCL 0.63 MG/3 ML NEB INH SCH ×4 (07:05→19:01)
[2019-07-28] MEDS ORDERED: VANCOMYCIN TROUGH ONE (07:30)
[2019-07-28] MEDS: MULTIVITAMIN TAB PO SCH (07:55)
[2019-07-28] MEDS: ANUSOL SUPP 1 EA PR SCH ×2 (07:56→22:10)
[2019-07-28] MEDS: HEPARIN SOD 5,000 UNIT/0.5 ML VIAL SQ SCH ×2 (07:57→22:10)
[2019-07-28] MEDS: LACTOBACILLUS ACIDOPHILUS 1 GM PACK PO SCH ×3 (08:10→15:20)
[2019-07-28] MEDS: CALCIUM CARBONATE 1250MG TAB PO SCH ×3 (08:10→21:27)
[2019-07-28] MEDS ORDERED: methylPREDNISolone 1,000 MG in DEXTROSE 5% 250 ML IV STA (10:28)
--- NOTE | 2019-07-28 16:50 | Hospitalist Progress Note ---
Date of Service July 28, 2019 Assessment & Plan (1) Right lower lobe pneumonia: CXR on 07/26 was equivocal; however, CXR on 07/27 favored RLL pneumonia. On 07/28, I personally witnessed stephanie aspiration at bedside. I sprayed 3 sprays of Biotin in her mouth. She was literally unable to handle the sprays and her secretions, and Dr. Ndiaye and I had to sit her up and suction it out of her mouth. - Initially on vanc/cefepime - MRSA swab negative on 07/27 -> Stopped vancomycin - Switched to Unasyn on 07/28 for aspiration pneumonia - Strict NPO until speech evaluation on Tuesday; however, I would be extremely reluctant to go with anything by mouth. Per this has been going on for a few weeks at least. - Will attempt Solumedrol burst in case this may be worsened by an MS flare; 1g IV today and 500 mg IV tomorrow. I have low hope this will improve her swallowing. - Palliative care consult (2) Multiple sclerosis: Long-standing. 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 Sees Dr. Ndiaye. - Alerted Dr. Ndiaye on 07/27 to her admission. - Normally would get her next ocrelizumab infusion on 08/06. Patient and wondering if we can give it early. - Call Infusion Center on Tuesday to see if they can order it to give on the day of discharge. - Gomez for now; will remove as able - Patient straight caths for neurogenic bladder - Steroid burst as above to hopefully improve swallowing (3) Sepsis: Initially with sepsis. - Now resolved on abx (4) DVT prophylaxis: Heparin 5000 Q12h Subjective Had stephanie aspiration at bedside this morning in the presence of myself and Dr. Ndiaye. Reports continued shortness of breath and "not feeling right." Review of Systems 2 Review of Systems: All systems reviewed & are unremarkable except as noted in HPI & below Physical Exam Constitutional: WD/WN, vitals as above + cachectic, + physical limitations and cooperative Eyes: EOM intact bilaterally; no conjunctival abnormality ENMT: external ear and nose normal, oropharynx normal Neck: trachea midline, no thyromegaly normal visual inspection Respiratory: normal respiratory effort, lungs clear to auscultation no respiratory distress Cardiovascular: RRR, no murmur, no edema Gastrointestinal (Abdomen): Inspection/Auscultation: abdomen normal to inspection; abdomen not distended Musculoskeletal: Head/Neck/Chest: normocephalic, head atraumatic and + limited ROM of neck Skin: no rashes, warm and dry Neurologic: moves all extremities and awake Psychiatric: Orientation: alert, oriented to person and cooperative Results & Data Vital Signs (Past 12 Hours) Vital Signs Temp Pulse Pulse Resp BP BP Pulse Ox 07/28/19 15:52 36.7 C 95 H 23 100/58 L 95 07/28/19 15:28 94 H 20 97 07/28/19 12:00 37.1 C 94 H 18 93/58 L 95 07/28/19 11:14 97 H 18 94 07/28/19 08:07 36.9 C 106 H 32 H 162/89 H 95 07/28/19 07:15 37.3 C 103 H 20 179/77 H 93 07/28/19 07:08 107 H 18 93 PG Care Time/CCT Total # of Minutes Spent Total Time Spent with Patient: Total time spent is greater than 50% in coordination of care (as documented) at patient's floor/unit and/or counseling patient: (1) Right lower lobe pneumonia Pneumonia type: due to unspecified organism Qualified Code(s): J18.1 - Lobar pneumonia, unspecified organism (2) Sepsis Sepsis acute organ dysfunction status: unspecified Sepsis type: sepsis due to unspecified organism Qualified Code(s): A41.9 - Sepsis, unspecified organism
[2019-07-28] MEDS: AMPICILLIN/SULBACTAM SOD 3,000 MG in 0.9 % SODIUM CHLORIDE 100 ML IV SCH ×2 (18:04→23:19)
[2019-07-28] MEDS: NORMOSOL-R 1,000 ML IV SCH (18:44)
[2019-07-29] MEDS: AMPICILLIN/SULBACTAM SOD 3,000 MG in 0.9 % SODIUM CHLORIDE 100 ML IV SCH ×4 (05:43→23:06)
[2019-07-29 06:36] LABS: Hemoglobin 10.6 g/dL (12.0-16.0); Mean Corpuscular Hemoglobin 29.9 pg (25-34); Mean Corpuscular Hgb Conc 33.1 g/dL (32-36); Mean Corpuscular Volume 90.1 fL (80-100); Platelet Count 216 K/uL (130-400); RDW Coefficient of Variation 15.2 % (11.5-14.5); RDW Standard Deviation 50.9 fL (36.4-46.3); Red Blood Count 3.55 M/uL (4.2-5.4); White Blood Count 12.27 K/uL (4.8-10.8)
[2019-07-29 07:05] LABS: BUN Creatinine Ratio 36.9 (10-20); Calcium 8.2 mg/dl (8.5-10.1); Creatinine Clr Calc Pharmacy 164.9 ml/min; Est GFR (African American) 135.8; Est GFR (Non-African American) 117.2; Magnesium 2.2 mg/dl (1.8-2.4); Potassium 2.7 mmol/L (3.5-5.1)
[2019-07-29] MEDS: LEVALBUTEROL HCL 0.63 MG/3 ML NEB INH SCH ×4 (07:13→19:25)
[2019-07-29] MEDS: CALCIUM CARBONATE 1250MG TAB PO SCH ×3 (08:27→19:54)
[2019-07-29] MEDS: MULTIVITAMIN TAB PO SCH (08:27)
[2019-07-29] MEDS: LACTOBACILLUS ACIDOPHILUS 1 GM PACK PO SCH ×3 (08:29→17:26)
[2019-07-29] MEDS: ANUSOL SUPP 1 EA PR SCH ×2 (08:46→19:54)
[2019-07-29] MEDS: HEPARIN SOD 5,000 UNIT/0.5 ML VIAL SQ SCH ×2 (08:47→19:54)
[2019-07-29] MEDS ORDERED: methylPREDNISolone 500 MG in DEXTROSE 5% 250 ML IV ONE (09:00)
[2019-07-29] MEDS: NORMOSOL-R 1,000 ML IV SCH (10:09)
--- NOTE | 2019-07-29 15:18 | Hospitalist Progress Note ---
Date of Service July 29, 2019 Assessment & Plan (1) Right lower lobe pneumonia: CXR on 07/26 was equivocal; however, CXR on 07/27 favored RLL pneumonia. On 07/28, I personally witnessed stephanie aspiration at bedside. I sprayed 3 sprays of Biotin in her mouth. She was literally unable to handle the sprays and her secretions, and Dr. Ndiaye and I had to sit her up and suction it out of her mouth. - Initially on vanc/cefepime - MRSA swab negative on 07/27 -> Stopped vancomycin - Switched to Unasyn on 07/28 for aspiration pneumonia - Strict NPO until speech evaluation on Tuesday; however, I would be extremely reluctant to go with anything by mouth. Per this has been going on for a few weeks at least. - Solumedrol burst or abx seem to be helping. - Palliative care consulted - Will (2) Multiple sclerosis: Long-standing. 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 Sees Dr. Ndiaye. Alerted Dr. Ndiaye on 07/27 to her admission. - Normally would get her next ocrelizumab infusion on 08/06. Patient and wondering if we can give it early. - Call [facility]fusion [facility] on Tuesday to see if they can order it to give on the day of discharge. - Gomez for now; will remove as able - Patient straight caths for neurogenic bladder - Steroid burst as above to hopefully improve swallowing - May be helping; see above (3) Sepsis: Initially with sepsis. - Now resolved on abx (4) DVT prophylaxis: Heparin 5000 Q12h Subjective Overall she is feeling much better today. No further cough this morning. No sputum production. No indication that she cannot handle her secretions. No fevers or chills overnight. Review of Systems Review of Systems: All systems reviewed & are unremarkable except as noted in HPI & below Physical Exam Constitutional: WD/WN, vitals as above + cachectic, + physical limitations and cooperative Eyes: EOM intact bilaterally; no conjunctival abnormality ENMT: external ear and nose normal, oropharynx normal Neck: trachea midline, no thyromegaly normal visual inspection Respiratory: normal respiratory effort, lungs clear to auscultation no respiratory distress Cardiovascular: RRR, no murmur, no edema Gastrointestinal (Abdomen): Inspection/Auscultation: abdomen normal to inspection; abdomen not distended Musculoskeletal: Head/Neck/Chest: normocephalic, head atraumatic and + limited ROM of neck Skin: no rashes, warm and dry Neurologic: awake; + does not move all extremities Psychiatric: Orientation: alert, oriented to person and cooperative Results & Data Vital Signs (Past 12 Hours) Vital Signs Temp Pulse Pulse Pulse Pulse Pulse Resp 07/29/19 15:12 94 H 20 07/29/19 11:48 36.6 C 82 20 07/29/19 11:03 89 18 07/29/19 07:32 36.4 C L 96 H 20 07/29/19 07:13 91 H 18 07/29/19 04:00 36.7 C 93 H 22 BP Pulse Ox 07/29/19 15:12 96 07/29/19 11:48 101/62 99 07/29/19 11:03 99 07/29/19 07:32 106/66 97 07/29/19 07:13 98 07/29/19 04:00 135/80 96 PG Care Time/CCT Total # of Minutes Spent Total Time Spent with Patient: Total time spent is greater than 50% in coordination of care (as documented) at patient's floor/unit and/or counseling patient: (1) Right lower lobe pneumonia Pneumonia type: due to unspecified organism Qualified Code(s): J18.1 - Lobar pneumonia, unspecified organism (2) Sepsis Sepsis acute organ dysfunction status: unspecified Sepsis type: sepsis due to unspecified organism Qualified Code(s): A41.9 - Sepsis, unspecified organism
[2019-07-29] MEDS: POTASSIUM CHLORIDE 40 MEQ in SODIUM CHLORIDE 0.9% 1000ML 1,000 ML IV SCH (17:26)
[2019-07-30] MEDS: AMPICILLIN/SULBACTAM SOD 3,000 MG in 0.9 % SODIUM CHLORIDE 100 ML IV SCH ×3 (05:40→17:27)
[2019-07-30 06:43] LABS: Hematocrit (blood only) 31.2 % (37-47); Hemoglobin 10.4 g/dL (12.0-16.0); Mean Corpuscular Hemoglobin 29.9 pg (25-34); Mean Corpuscular Hgb Conc 33.3 g/dL (32-36); Mean Corpuscular Volume 89.7 fL (80-100); Mean Platelet Volume 9.1 fL (7.4-10.4); Platelet Count 223 K/uL (130-400); RDW Coefficient of Variation 15.3 % (11.5-14.5); RDW Standard Deviation 49.7 fL (36.4-46.3); Red Blood Count 3.48 M/uL (4.2-5.4); White Blood Count 10.93 K/uL (4.8-10.8)
[2019-07-30] MEDS: LEVALBUTEROL HCL 0.63 MG/3 ML NEB INH SCH ×4 (07:18→19:16)
[2019-07-30 07:20] LABS: BUN Creatinine Ratio 36.1 (10-20); Calcium 8.2 mg/dl (8.5-10.1); Creatinine Clr Calc Pharmacy 106.5 ml/min; Est GFR (African American) 117.6; Est GFR (Non-African American) 101.5; Magnesium 2.5 mg/dl (1.8-2.4); Potassium 3.3 mmol/L (3.5-5.1)
[2019-07-30 07:29] LABS: Phosphorus 1.5 mg/dl (2.5-4.9)
[2019-07-30] MEDS: MULTIVITAMIN TAB PO SCH (08:23)
[2019-07-30] MEDS: CALCIUM CARBONATE 1250MG TAB PO SCH ×3 (08:23→19:40)
[2019-07-30] MEDS: LACTOBACILLUS ACIDOPHILUS 1 GM PACK PO SCH ×3 (08:23→17:28)
[2019-07-30] MEDS: HEPARIN SOD 5,000 UNIT/0.5 ML VIAL SQ SCH ×2 (08:23→19:40)
[2019-07-30] MEDS: ANUSOL SUPP 1 EA PR SCH ×2 (08:24→19:41)
[2019-07-30] MEDS ORDERED: POTASSIUM PHOS 3 MMOL/1 ML INFUSION IV STA (08:38)
[2019-07-30] MEDS ORDERED: POTASSIUM PHOSPHATE 24 MMOL in SODIUM CHLORIDE 0.9% 500 ML IV ONE (09:00)
[2019-07-30] MEDS: POTASSIUM CHLORIDE 40 MEQ in SODIUM CHLORIDE 0.9% 1000ML 1,000 ML IV SCH ×2 (11:35→22:10)
--- NOTE | 2019-07-30 13:29 | Fluoroscopy Report ---
MODIFIED BARIUM SWALLOW CLINICAL HISTORY: r/o aspiration COMPARISON STUDY: None. FLUOROSCOPY TIME: 1 minute. TECHNIQUE: A modified barium swallow was performed in conjunction with Speech Pathology. The patient ingested varying consistencies of barium containing material. Video fluoroscopy was performed. FINDINGS: There was no aspiration with thin liquids. A small amount of tracheal aspiration was noted with nectar thick liquids by straw. There is no aspiration with crackers with paste. Epiglottic inver larisa was normal. Laryngeal elevation was normal. IMPRESSION: 1. Small amount of tracheal aspiration with nectar thickened liquids by straw. 2. No aspiration with the remainder of the consistencies. 3. Full recommendations by speech pathology to follow. Electronically signed by: Frederick Cheng M.D. 07/30/2019 1:28 PM
--- NOTE | 2019-07-30 14:27 | Hospitalist Progress Note ---
Date of Service July 30, 2019 Assessment & Plan (1) Right lower lobe pneumonia: CXR on 07/26 was equivocal; however, CXR on 07/27 favored RLL pneumonia. On 07/28, I personally witnessed stephanie aspiration at bedside. I sprayed 3 sprays of Biotin in her mouth. She was literally unable to handle the sprays and her secretions, and Dr. Ndiaye and I had to sit her up and suction it out of her mouth. - Initially on vanc/cefepime - Switched to Unasyn on 07/28 for aspiration pneumonia - Solumedrol burst seemed to help. - Palliative care consulted - Will see on Tuesday. To discuss G-tube. Family and patient seem ok with this. - Probably do a 7-10 day course given her immunocompromised nature. (2) Multiple sclerosis: Long-standing. 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 Sees Dr. Ndiaye. Alerted Dr. Ndiaye on 07/27 to her admission. - Normally would get her next ocrelizumab infusion on 08/06. Patient and wondering if we can give it early. - Call [facility] on Tuesday to see if they can order it to give on the day of discharge. - Gomez for now; will remove as able - Patient straight caths for neurogenic bladder - Steroid burst as above to hopefully improve swallowing - Will likely refer to general surgery for possible G-tube placement in the future. (3) Sepsis: Initially with sepsis. - Now resolved on abx (4) DVT prophylaxis: Heparin 5000 Q12h Subjective Feeling better today. Still having trouble tolerating her secretions. Review of Systems Review of Systems: All systems reviewed & are unremarkable except as noted in HPI & below Physical Exam Constitutional: WD/WN, vitals as above + cachectic, + physical limitations and cooperative Eyes: EOM intact bilaterally; no conjunctival abnormality ENMT: external ear and nose normal, oropharynx normal Neck: trachea midline, no thyromegaly normal visual inspection Respiratory: normal respiratory effort, lungs clear to auscultation no respiratory distress Cardiovascular: RRR, no murmur, no edema Gastrointestinal (Abdomen): Inspection/Auscultation: abdomen normal to inspection; abdomen not distended Musculoskeletal: Head/Neck/Chest: normocephalic, head atraumatic and + limited ROM of neck Skin: no rashes, warm and dry Neurologic: awake; + does not move all extremities Psychiatric: Orientation: alert, oriented to person and cooperative Results & Data Vital Signs (Past 12 Hours) Vital Signs Temp Pulse Resp BP Pulse Ox 07/30/19 11:31 36.6 C 87 20 98/59 L 97 07/30/19 11:14 84 20 98 07/30/19 08:07 36.4 C L 86 18 101/63 96 07/30/19 07:25 88 19 97 07/30/19 02:45 36.5 C 78 16 118/72 97 PG Care Time/CCT Total # of Minutes Spent Total Time Spent with Patient: Total time spent is greater than 50% in coordination of care (as documented) at patient's floor/unit and/or counseling patient: (1) Right lower lobe pneumonia Pneumonia type: due to unspecified organism Qualified Code(s): J18.1 - Lobar pneumonia, unspecified organism (2) Sepsis Sepsis acute organ dysfunction status: unspecified Sepsis type: sepsis due to unspecified organism Qualified Code(s): A41.9 - Sepsis, unspecified organism
--- NOTE | 2019-07-30 17:10 | Palliative Care Consultation ---
Date of Consultation July 30, 2019 Assessment & Plan (1) Goals of care, counseling/discussion: -68 year old female patient with PMH advanced multiple sclerosis, urinary retention, and others, presented to the hospital four days ago with c/o shortness of breath found to be hypoxic to 87% on RA, with tachycardia and tachypnea, lactate elevated to 2.37. CXR showed RLL infiltrate suggestive of pneumonia, UA and UCx sent which is negative, BCx x2 sent which both show no growth. Started on broad spectrum Abx and fluids, 2LNC given for hypoxia. Admitted for concern of sepsis which has resolved on IV abx. Patient noted to be coughing and choking during meals for quite some time now, even has trouble with her own secretions at times per patient and the family. Patient lives at home with her and has private duty caregivers. Patient receives infusions for her MS at the [facility], following with neuro and urology here in [place] as well, but lives 2.5 hours away. Had video swallow study today which patient passed without difficulty as far as swallowing thing liquids and food, but continues to have choking/coughing events. Family concerned. Palliative care consulted to discuss medical decision making such as feeding tube and discuss goals of care. -Met with patient, her Adriel, daughter Anastasia and son in room 236. Patient is AA&O x4. She is pleasant and talkative. Voice is somewhat quiet and speech mildly slowed due to the MS. Patient is apparently not completely bedbound at home, but does have significant muscle atrophy of extremities and is essentially a quadriplegic. Patient requires assistance with all ADL and care. -Lengthy discussion re: GOC. Patient would like to avoid a feeding tube for as long as possible, but would be agreeable to it if needed. Family agrees with patient's decision making. They all agree that if patient is still awake, coherent, able to communicate with family, enjoy her days, live good QUALITY of life, but just needed some nutritional supplementation or safe means of nutrition, they would be agreeable to giving feeding tube a try. -As far as whether or not it is time to formally discuss having PEG tube placed, I am uncertain. Patient follows with Dr. Ndiaye and Dr. Rico plans to informally reach out to him for guidance. Patient is able to eat several meals a day, has an albumin of 3.0 (uncertain of weight or albumin trend since she does not have previous visits), so it may not be imperative to make a decision on this now. But patient and family aware that it is a decision they will likely need to make in near future. -Patient wishes to remain a FULL CODE at this time. She states, however, that when she is truly end-stage without any meaningful hope of recovery, unable to communicate with family, poor quality of life, she would not want her life prolonged in that state. Family supportive. -For home assistance, did ask home health care case manager to make a referral to the [facility] program through [facility] to provide in-home palliative visit to continue this conversation. Family appreciative of that. -Would see if PT/OT/ST recommend continuing any services at home and make referral to home health if indicated. -They asked about a home suction machine-- will ask CM to follow up on this. -Patient declines needing to complete advance directive paperwork at this time. She and her family state they will sort through the documents she already has at home. -Palliative care will continue to follow for any further needs. (2) Right lower lobe pneumonia: Pneumonia type: due to unspecified organism Qualified Code(s): J18.1 - Lobar pneumonia, unspecified organism (3) Multiple sclerosis: Supervising Physician Co-Signing Physician Notes Chart reviewed. Patient seen and examined-patient's son, daughter and at bedside. Attending physician, Dr. Rico also present for portion of the visit. Collaborated with CAROLINA Ludwig PE: Patient awake and alert, oriented x4 HEENT: EOMI, hearing within normal limits Respiratory: Increased respiratory effort with speech due to generalized weakness due to MS CV: Regular rate Abdomen: Soft, nontender Extremities: Right upper extremity flaccid, minimal movement left upper extremity Neuro: Alert and oriented x4 Agree with above note, assessment and plan as per CAROLINA Ludwig. Discussed with patient and family investigating communication devices were patient can use her eyes to select letters and phrases. History of Present Illness Attending Physician: Mauro Rico MD Allergies Allergy/AdvReac Type Severity Reaction Status Date / Time No Known Allergies Allergy Verified 07/26/19 17:47 Home Medications Home Medications Medication Instructions Recorded Confirmed Type calcium carbonate [Calcium 500] 1 tab PO TID 01/18/19 07/26/19 History cholecalciferol (vitamin D3) 0 tab PO DAILY 01/18/19 07/26/19 History [Vitamin D3] multivitamin 1 tab PO DAILY 01/18/19 07/26/19 History risedronate [Actonel] 1 tab PO WK 01/18/19 07/26/19 History nitrofurantoin macrocrystal 50 mg 50 mg PO BID #90 cap 07/23/19 07/26/19 Rx capsule albuterol sulfate [ProAir HFA] 2 puff INHALATION Q4 PRN 07/26/19 07/26/19 History baclofen 0 mcg CONTINUOUS INTRATHECAL 07/26/19 07/26/19 History INFUSION CONTINOUS cefuroxime axetil 500 mg PO BID 07/26/19 07/26/19 History ocrelizumab [Ocrevus] 300 mg IV .[id number] 07/26/19 07/26/19 History Patient History Medical History Presence of intrathecal pump BACLOFEN Spasticity Urinary retention STRAIGHT CATH 2X DAILY Multiple sclerosis UNABLE TO MOVE LE/PARAPESIS 2/2 PROGRESSIVE MULTIPLE SCLEROSIS; LIMITED MOVEMENT IN HANDS/UE Surgical History Cyst LEFT HIP CALCIUM DEPOSIT REMOVAL History of colonoscopy S/P insertion of intrathecal pump History of tooth extraction Social History Preferred Language: Upper Sorbian Communication Ability: Effective Humidifier Maintenance Worker Required: No Beliefs That Will Affect Care: None marital status: Current Living Situation: Spouse current occupational status: disabled Other Information That Helps Us Care for You: No Feels Safe at Home: Yes Safety Concerns: Feels Safe At This Time Smoking Status: Unknown if ever smoked Hx Alcohol Use: No Hx Substance Use: No Review of Systems Review of Systems: Const: + weakness at baseline ENMT: No dysphagia, but does have coughing/choking at times with food or secretions Resp: No SOB, no cough Cardio: No chest pain, no edema GI: No abdominal pain, N/V MS: No musculoskeletal pain Neuro: No confusion Psych: No anxiety, no depression Physical Exam Constitutional: + cachectic and + physical limitations ENMT: external ear and nose normal, oropharynx normal Respiratory: normal respiratory effort, lungs clear to auscultation Cardiovascular: RRR, no murmur, no edema Gastrointestinal (Abdomen): Inspection/Auscultation: abdomen normal to inspection Musculoskeletal: Head/Neck/Chest: + limited ROM of neck Skin: no rashes, warm and dry Neurologic: awake; + does not move all extremities Psychiatric: A+Ox3, euthymic affect Results & Data Vital Signs (Past 12 Hours) Vital Signs Temp Pulse Resp BP Pulse Ox 07/30/19 15:50 36.5 C 83 21 106/67 97 07/30/19 15:26 68 18 97 07/30/19 11:31 36.6 C 87 20 98/59 L 97 07/30/19 11:14 84 20 98 07/30/19 08:07 36.4 C L 86 18 101/63 96 07/30/19 07:25 88 19 97 PG Care Time/CCT Prolonged Care Time Prolonged Care Time: Yes Total Prolonged Care Time: 110 Time Spent Midlevel 110 minutes with >50% of the time spent at bedside with patient and family discussing condition and GOC. Attending Spent an additional 25 minutes in addition to the 110 minutes spent by ADJUNCT FACULTY INSTRUCTOR for a total of 135 minutes with greater than 50% of the time spent at bedside discussing goals of care and treatment options.
--- NOTE | 2019-07-30 19:12 | XRay Report ---
XR chest 1V portable HISTORY: 68 years-old Female Continued aspiration. Possible pneumonia. Chronic shortness of breath w ith aspiration COMPARISON: Chest radiograph 07/27/2019 TECHNIQUE: Portable AP view of the chest FINDINGS: Limited exam secondary to positioning. Cardiac silhouette is enlarged, unchanged. Mild pulmonary vasc ular congestion. Small right pleural effusion with persistent bibasilar opacities. No pneumothorax. B ones appear grossly intact. IMPRESSION: 1. Cardiomegaly with pulmonary vascular congestion. 2. Small right pleural effusion. 3. Persistent bibasilar opacities suggestive of atelectasis or pneumonitis. The above report was generated using voice recognition software. It may contain grammatical, syntax o r spelling errors. Electronically signed by: Jony Suazo M.D. 07/30/2019 7:11 PM
[2019-07-30] MEDS: FLUTICASONE PROPIONATE NA SPR 16 GM BTL SCH (19:56)
[2019-07-31] MEDS: AMPICILLIN/SULBACTAM SOD 3,000 MG in 0.9 % SODIUM CHLORIDE 100 ML IV SCH ×5 (00:11→23:27)
[2019-07-31 07:05] LABS: Hematocrit (blood only) 30.9 % (37-47); Hemoglobin 10.2 g/dL (12.0-16.0); Mean Corpuscular Hemoglobin 29.8 pg (25-34); Mean Corpuscular Volume 90.4 fL (80-100); Mean Platelet Volume 9.2 fL (7.4-10.4); Platelet Count 216 K/uL (130-400); RDW Coefficient of Variation 15.7 % (11.5-14.5); RDW Standard Deviation 52.1 fL (36.4-46.3); Red Blood Count 3.42 M/uL (4.2-5.4); White Blood Count 6.31 K/uL (4.8-10.8)
[2019-07-31] MEDS: LEVALBUTEROL HCL 0.63 MG/3 ML NEB INH SCH ×4 (07:24→19:14)
[2019-07-31 07:49] LABS: BUN Creatinine Ratio 56.8 (10-20); Calcium 8.5 mg/dl (8.5-10.1); Creatinine Clr Calc Pharmacy 182.5 ml/min; Est GFR (African American) 140.5; Est GFR (Non-African American) 121.2; Magnesium 2.4 mg/dl (1.8-2.4); Phosphorus 1.9 mg/dl (2.5-4.9); Potassium 3.9 mmol/L (3.5-5.1)
[2019-07-31] MEDS: LACTOBACILLUS ACIDOPHILUS 1 GM PACK PO SCH ×3 (08:07→17:17)
[2019-07-31] MEDS: FLUTICASONE PROPIONATE NA SPR 16 GM BTL SCH ×2 (08:07→21:00)
[2019-07-31] MEDS: HEPARIN SOD 5,000 UNIT/0.5 ML VIAL SQ SCH ×2 (08:07→21:08)
[2019-07-31] MEDS: CALCIUM CARBONATE 1250MG TAB PO SCH ×3 (08:07→21:00)
[2019-07-31] MEDS: ANUSOL SUPP 1 EA PR SCH ×2 (08:07→21:00)
[2019-07-31] MEDS: MULTIVITAMIN TAB PO SCH (08:07)
--- NOTE | 2019-07-31 14:57 | Palliative Care Progress Note ---
Date of Service July 31, 2019 Assessment & Plan (1) Goals of care, counseling/discussion: -Was called back to patient's room today by patient's son. Patient is feeling well today. -Patient and family had questions about hospice care for future. Questions answered to the best of my ability. Patient is not ready for hospice at this point in her life, but would be amenable to it in the future. -Plan is for discharge today or tomorrow. -Palliative care will sign off. Please contact us with any further needs. (2) Right lower lobe pneumonia: (3) Multiple sclerosis: Subjective Patient is doing well today, feeling better. Review of Systems Review of Systems: Const: + weakness at baseline ENMT: No dysphagia, but does have coughing/choking at times with food or secretions Resp: No SOB, no cough Cardio: No chest pain, no edema GI: No abdominal pain, N/V MS: No musculoskeletal pain Neuro: No confusion Psych: No anxiety, no depression Physical Exam Constitutional: + cachectic and + physical limitations ENMT: external ear and nose normal, oropharynx normal Respiratory: normal respiratory effort, lungs clear to auscultation Cardiovascular: RRR, no murmur, no edema Gastrointestinal (Abdomen): Inspection/Auscultation: abdomen normal to inspection Musculoskeletal: Head/Neck/Chest: + limited ROM of neck Skin: no rashes, warm and dry Neurologic: awake; + does not move all extremities Psychiatric: A+Ox3, euthymic affect Results & Data Vital Signs (Past 12 Hours) Vital Signs Temp Pulse Resp BP Pulse Ox 07/31/19 11:29 68 18 92 07/31/19 11:17 36.4 C L 65 18 143/85 H 98 07/31/19 07:29 67 20 97 07/31/19 07:10 35.9 C L 65 20 112/70 96 07/31/19 04:41 36.4 C L 71 20 126/79 96 Time Spent Midlevel [25] minutes with >50% of the time spent at bedside with [patient and family] discussing goals and plan of care. (1) Right lower lobe pneumonia Pneumonia type: due to unspecified organism Qualified Code(s): J18.1 - Lobar pneumonia, unspecified organism
--- NOTE | 2019-07-31 15:10 | Communication Note ---
Date of Service: July 31, 2019 see progress notes for full clinical details, however, in discussions with pt - she does not have home O2. O2 turned off - and within 5-6 minutes she desaturated to 85% on room air. discussed with case management
--- NOTE | 2019-07-31 17:09 | Hospitalist Progress Note ---
Date of Service July 31, 2019 Assessment & Plan (1) Right lower lobe pneumonia: Improving nicely. High concern on aspiration related to her MS and the choking and gagging that family she is at mealtime. That said she does quite well with speech therapy evaluation, showing that her ability to swallow is they are, but I suspect probably when she feels weaker or worse she would be more prone aspirating. Discussed safe swallow strategies, and discussed her overall course of care. She is stable for home. Will transition to Augmentin. We will ask for home speech therapy. Albuterol as needed. (2) Multiple sclerosis: Long-standing. 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 Sees Dr. Ndiaye. Alerted Dr. Ndiaye on 07/27 to her admission. -Continue outpatient follow-up and treatment. (3) Sepsis: Initially with sepsis. - Now resolved on abx -Continue to finish out a course of antibiotics (4) DVT prophylaxis: Heparin 5000 Q12h (5) Hypoxia: Her son remarking that a pulmonary doctor mentioned that her lungs functioning at "30%" years ago suggest she probably has a degree of MS related restrictive lung disease. This, with the pneumonia superimposed, certainly accounts for her hypoxia. Continue nasal cannula oxygen, she will need it for probably at least the foreseeable future. (6) Discharge planning issues: Home once oxygen is able to be set up. Stable for transfer to [facility] now (7) Hypernatremia: Very mild. Follow hydration status. Subjective Son notes that a few years ago pulmonary doctor seeing her noted that her lungs were working at "30%" Overall feeling much better. Breathing better. Swallowing well. Son does note that even at home she frequently has choking episodes, we discussed how she does well with speech therapy, but that certainly may not be the entire picture of her swallowing given that she is dealing with such as severe chronic neurologic illness. She is still coughing and bringing up mucus, but she is breathing okay. No other new complaints. She would very much like to get home. Extensive discussions with patient, , and son, all questions answered to the best my ability Review of Systems Review of Systems: All systems reviewed & are unremarkable except as noted in HPI & below Physical Exam Physical Exam: In general she is awake and alert pleasant no distress, HEENT normal cephalic atraumatic mucous membranes moist. Cardio no rubs murmurs gallops. Lungs may be very faintly scattered rhonchi but surprisingly clear. Does have a lot of upper airway adventitious sounds, but lungs overall fairly clear. No accessory muscle use. Chronic neurologic deficits. No pallor or icterus Results & Data Vital Signs (Past 12 Hours) Vital Signs Temp Pulse Resp BP Pulse Ox 07/31/19 16:03 97.9 F 75 20 148/78 H 100 07/31/19 15:59 84 18 90 07/31/19 11:29 68 18 92 07/31/19 11:17 97.5 F L 65 18 143/85 H 98 07/31/19 07:29 67 20 97 07/31/19 07:10 96.6 F L 65 20 112/70 96 PG Care Time/CCT Total # of Minutes Spent Total Time Spent with Patient: Total time spent is greater than 50% in coordination of care (as documented) at patient's floor/unit and/or counseling patient: (1) Sepsis Sepsis acute organ dysfunction status: unspecified Sepsis type: sepsis due to unspecified organism Qualified Code(s): A41.9 - Sepsis, unspecified organism (2) Right lower lobe pneumonia Pneumonia type: due to unspecified organism Qualified Code(s): J18.1 - Lobar pneumonia, unspecified organism
[2019-08-01] MEDS ORDERED: ALBUTEROL 0.083% NEBU SOLN 3 ML VIAL NEB PRN (02:55)
[2019-08-01] MEDS ORDERED: guaiFENesin SUGAR FREE 100 MG/5 ML UDC PO PRN (03:08)
[2019-08-01] MEDS: AMPICILLIN/SULBACTAM SOD 3,000 MG in 0.9 % SODIUM CHLORIDE 100 ML IV SCH ×2 (04:56→11:07)
[2019-08-01] MEDS: LEVALBUTEROL HCL 0.63 MG/3 ML NEB INH SCH ×2 (07:15→13:11)
[2019-08-01] MEDS: MULTIVITAMIN TAB PO SCH (08:42)
[2019-08-01] MEDS: ANUSOL SUPP 1 EA PR SCH (08:42)
[2019-08-01] MEDS: CALCIUM CARBONATE 1250MG TAB PO SCH (08:42)
[2019-08-01] MEDS: LACTOBACILLUS ACIDOPHILUS 1 GM PACK PO SCH (08:42)
[2019-08-01] MEDS: FLUTICASONE PROPIONATE NA SPR 16 GM BTL SCH (08:42)
[2019-08-01] MEDS: HEPARIN SOD 5,000 UNIT/0.5 ML VIAL SQ SCH (08:43)
[2019-08-01] MEDS: ACETAMINOPHEN 325 MG TAB PO PRN (08:47)
[2019-08-01] MEDS ORDERED: guaiFENesin 600 MG TABCR PO SCH (09:00)
[2019-08-01 10:05] LABS: BUN Creatinine Ratio 26.6 (10-20); Calcium 8.5 mg/dl (8.5-10.1); Est GFR (African American) 129.3; Est GFR (Non-African American) 111.6; Potassium 3.3 mmol/L (3.5-5.1)
[2019-08-01 12:03] LABS: Pneumococcal IgG Type 1 0.5; Pneumococcal IgG Type 12 (12F) <0.3; Pneumococcal IgG Type 14 80.9; Pneumococcal IgG Type 19 (19F) 17.8; Pneumococcal IgG Type 23 (23F) 2.1; Pneumococcal IgG Type 26 (6B) 64.1; Pneumococcal IgG Type 3 <0.3; Pneumococcal IgG Type 4 <0.3; Pneumococcal IgG Type 51 (7F) 5.1; Pneumococcal IgG Type 56 (18C) 9.2; Pneumococcal IgG Type 68 (9V) 0.3; Pneumococcal IgG Type 8 0.4; Pneumococcal IgG Type 9 (9N) 0.4
--- NOTE | 2019-08-01 16:21 | Discharge Summary ---
Date of Service August 01, 2019 Admission HPI Per Admitting Provider 68 yo F PMHx MS, urinary retention with straight catheter at home, recurrent UTI presented to ED for shortness of breath found to be hypoxic to 87% on RA, with tachycardia and tachypnea, lactate elevated to 2.37. CXR showed RLL infiltrate suggestive of pneumonia, UA and UCx sent, BCx x2 sent. Started on broad spectrum Abx and fluids, 2LNC given for hypoxia, admit team consulted. Here with who provides some history as well. On interview pt reports that she feels much better at present moment on 2LNC. 2 days ago started to have shortness of breath which she does not have at baseline. Went to [facility] near home and CXR did not show any pathology per patient's , was given albuterol inhaler to go home and advised to seek care if any worse. Today woke up feeling more unwell, cough productive of yellow sputum, increased SOB without CP, without nausea or vomiting, no changes in bowels. No fevers at home however endorses subjective chills. Denies pain or soreness in legs. Of note, history of recurrent UTI, straight caths at home, on daily macrobid prophylaxis per Dr. Davis. No hematuria, no abdominal pain. Principal Diagnosis Aspiration pneumonia Discharge Exam Awake alert oriented pleasant no distress. HEENT mucous membranes are moist. Cardio regular, lungs with diffuse coarse rhonchi but good air entry no wheezes no accessory muscle use no respiratory distress. Neuro with chronic findings. Skin no rashes no pallor or icterus. Discharge Data Allergies Allergy/AdvReac Type Severity Reaction Status Date / Time No Known Allergies Allergy Verified 07/26/19 17:47 Consultations 07/26/19 18:11 ED Decision to Admit Stat 07/26/19 22:42 Consult Case Management - Discharge Planning Routine 07/28/19 16:50 Consult Palliative Care Routine Ordered Studies 07/30/19 12:45 FL video swallow Routine Hospital Course (1) Right lower lobe pneumonia: Improving nicely. High concern on aspiration related to her MS and the choking and gagging that family she is at mealtime. That said she does quite well with speech therapy evaluation, showing that her ability to swallow is they are, but I suspect probably when she feels weaker or worse she would be more prone aspirating. Previously discussed safe swallow strategies, and discussed her overall course of care. She is stable for home. Finish out a course of oral antibiotics. We will ask for home speech therapy. Albuterol as needed. (2) Multiple sclerosis: Long-standing. 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 Sees Dr. Ndiaye. Alerted Dr. Ndiaye on 07/27 to her admission. -Continue outpatient follow-up and treatment. (3) Sepsis: Initially with sepsis. - Now resolved on abx -Continue to finish out a course of antibiotics (4) DVT prophylaxis: Heparin 5000 Q12h utilized during her hospital stay (5) Hypoxia: Her son remarking that a pulmonary doctor mentioned that her lungs functioning at "30%" years ago suggest she probably has a degree of MS related restrictive lung disease. This, with the pneumonia superimposed, certainly accounts for her hypoxia. Continue nasal cannula oxygen, she will need it for probably at least the foreseeable future. Set up for home (6) Discharge planning issues: Home, home speech therapy, PCP follow-up (7) Hypernatremia: Was very mild, now normalized. Outpatient follow-up. Total Time Total Time Spent Total Time Spent (In Minutes): Less than 30 minutes today, because the bulk of the time coordinating and arranging in discussing her discharge was yesterday, but because of not being able to get oxygen set up, her discharge was held over to today Discharge Plan Discharge Items Patient Disposition: Home - Home Health Services Reason For Visit: SEPSIS POSSIBLE DUE TO PNEUMONIA,POSSIBLE UTI Discharge Diagnosis: Pneumonia with concern of aspiration as the cause Activity: Resume your previous activity Non-emergency contact: Primary Care Provider Call non-emergency contact if: your symptoms worsen and your temperature is above 101 Follow-up/Referrals: Kenan Sam [Physician] - (Please see Dr. Sam to have a discussion of PEG tubes and what they entail.) Maury Johnston MD [Primary Care Provider] - (Please follow up on your Tuesday appointment. Visit was for today, MD office aware of d/c and will follow up with pt. to reschedule home visit.) Diet: Regular Addtl Attending Provider Instructions: Ms. Pagan, You are admitted to the hospital with a pneumonia in the right lower lobe. We are concerned that this pneumonia could have been caused by aspiration of food or secretions that you are having trouble handling. We started you on IV antibiotics and IV fluids, and you improved substantially over the course of a few days. We did a x-ray swallow test which did not show aspiration with anything other than a small amount with thick liquids through a straw. Crackers and thin liquids (water consistency) were all fine. However, I and your family are concerned about your visible trouble with mucus and saliva. Please take your antibiotic 2 times per day until it is completely gone. Please hold your chronic UTI antibiotic until you are finished with this regimen. After that, you can restart your nitrofurantoin. Please arrange with your home health to obtain a suction machine, as you will likely continue to have trouble with your secretions. You can also take OTC Flonase to try to help with dry your nasal secretions out. 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 In the hospital, we had a long discussion about next steps for your multiple sclerosis. Unfortunately, we could not arrange your infusion for your day of discharge. You will have to come back next Tuesday for that. We did discuss the potential for eventually needing a PEG tube (a tube that enters the stomach from outside the body), and we have asked our team to arrange a visit with Dr Palmer of [facility] to discuss what this would entail; as we discussed, this is hopefully more to get to know him and be able to plan things out slowly so that when or if the time comes that you might benefit from such a tube, you can do things under controlled circumstances rather than "working from behind" due to being back in the hospital with another aspiration pneumonia. You can also follow-up with a dietitian either near your home or at [facility]. Dietitian will help you track your caloric intake to see if a PEG tube may be necessary in the near future. The recovery from a pneumonia can take a while - as we discussed, the cough and mucous could possible take a month to totally clear, and almost certainly a general (but nonspecific) feeling of being "run down" or tired will probably take a month to totally go away. You could get better faster, but to protect you from worrying if you're just getting better "on the slow end of ok" it would be reasonable for it to take until Halloween for you to really feel like yourself again. On the other side of that, though, if it is that far out and you're still not feeling better, we would definitely want you evaluated for the possibility of repeated aspiration, or other new problems that could crop up. Hopefully you'll only need the oxygen for a little while, but your PCP will help keep an eye on how that is going. We'd want to see your pulse ox readings be above about 92 at all times without the oxygen to know that you've improved to where we can get rid of it. It would be helpful to get a pulse oximeter for home (available over the counter) to follow your readings and have a good feel for how you're doing. Pending Studies at Discharge: No Stand-Alone Forms: My [facility] Medications and DC Order Prescriptions: New fluticasone propionate 50 mcg/actuation [place],Suspension 2 spry NA BID Qty: 1 RF: 0 amoxicillin-pot clavulanate [Augmentin] 875-125 mg tablet 1 tab PO BID Qty: 10 RF: 0 hydrocortisone acetate [Anusol-HC] 25 mg suppository 25 mg AR HS Qty: 24 RF: 0 Continued multivitamin Tablet 1 tab PO DAILY RF: 0 calcium carbonate [Calcium 500] 500 mg calcium (1,250 mg) Tablet 1 tab PO TID RF: 0 cholecalciferol (vitamin D3) [Vitamin D3] 1,000 unit Capsule PO DAILY RF: 0 risedronate [Actonel] 35 mg Tablet 1 tab PO WK RF: 0 baclofen 2,000 mcg/mL Solution continuous intrathecal infusion CONTINOUS RF: 0 albuterol sulfate [ProAir HFA] 90 mcg/actuation Hfa Aerosol Inhaler 2 puff INHALATION Q4 PRN (Reason: Shortness Of Breath Or Wheezing) RF: 0 Ocrevus 30 mg/mL Solution 300 mg IV .[id number] RF: 0 Discontinued nitrofurantoin macrocrystal 50 mg capsule 50 mg PO BID Qty: 90 RF: 1 cefuroxime axetil 500 mg Tablet 500 mg PO BID RF: 0 Discharge Orders: Discharge Order (Routine); Ordered 08/01/19 Ordered By: Todd Gaspar Admission Data Admit Date/Time: 07/26/19 21:31 Attending Provider: Todd Gaspar Admit Provider: Haley Boudreaux Primary Care Provider: Maury Johnston Other Providers: Mauro Rico ; Kevin Morrow ; Katherin Ny Other Interventions: Discharge Summary Assessment (RN) Last Done: 08/01/19 11:50 DC Date/Time DO NOT enter until pt leaves facility: 08/01/19 13:12
[2019-08-02] MEDS ORDERED: RISEDRONATE SODIUM 35 MG TAB PO SCH (06:30)
== END 2019-08-01 13:12 | disposition home health service (06) | DRG 871 ==
LOC: ED 16:58 → SUATTDRO 21:31 → 2S 21:31 → 4W 07-31 17:05

== ENCOUNTER 2019-09-29 19:12 | Inpatient (IN) ==
[2019-09-29] MEDS ORDERED: PIPERACILL/TAZOBAC CONSULT ACTIVE PRN (19:36)
[2019-09-29] MEDS ORDERED: PIPERACILLIN/TAZOBACTAM 4.5 GM/120 ML BAG IV ONE (19:36)
--- NOTE | 2019-09-29 19:40 | Emergency Department Note ---
Entered by Anaya Cade acting as a scribe for Anant Mccullough DO History of Present Illness General Chief complaint: Tachycardia Stated complaint: SOB, HIGH HEART RATE, LOW OXYGEN LEVELS Time Seen by Provider: 09/29/19 19:25 Source: patient History of Present Illness Provider complaint: Tachycardia Onset (ago): day(s) 3 Location: chest Maximum Pain Intensity: 0 Relieved By: + none Exacerbated By: + none Associated symptoms: + confusion and + fever/chills; no cough The patient is a 69 year old female who presents to the Emergency Room with complaints of tachycardia that began 3 days ago. The patient's states the patient's symptoms are not relieved nor exacerbated by anything specific. The patient's reports that the patient is very confused and was running a fever at home but denies her having a cough. The patient's states the patient was here in July for similar symptoms that ended up being possible sepsis. The patient's notes that the patient typically only uses oxygen at night but has recently had to use it during the day. Home Medications Home Medications Medication Instructions Recorded Confirmed Type calcium carbonate [Calcium 500] 1 tab PO TID 01/18/19 09/29/19 History cholecalciferol (vitamin D3) 0 tab PO QPM 01/18/19 09/29/19 History [Vitamin D3] multivitamin 1 tab PO QAM 01/18/19 09/29/19 History risedronate [Actonel] 1 tab PO WK 01/18/19 09/29/19 History Ocrevus 300 mg IV .[id number] 07/26/19 09/29/19 History albuterol sulfate [ProAir HFA] 2 puff INHALATION Q4 PRN 07/26/19 09/29/19 History baclofen 0 mcg CONTINUOUS INTRATHECAL 07/26/19 09/29/19 History INFUSION CONTINOUS fluticasone propionate 2 spry NA BID #1 g 07/30/19 09/29/19 Rx hydrocortisone acetate [Anusol-HC] 25 mg NM HS #24 ea 07/30/19 09/29/19 Rx terbinafine HCl 250 mg tablet 250 mg PO DAILY 08/20/19 09/29/19 History albuterol sulfate 0 mg INHALATION TID 09/29/19 09/29/19 History cholecalciferol (vitamin D3) 400 unit PO QAM 09/29/19 09/29/19 History [Vitamin D3] lactobacillus combination no.4 3,000 mmu cells PO QAM 09/29/19 09/29/19 History [Probiotic] megestrol [Megace ES] 10 ml PO DAILY 09/29/19 09/29/19 History nystatin 1 applic TOPICAL TID 09/29/19 09/29/19 History scopolamine base 1 patch TRANSDERMAL UD 09/29/19 09/29/19 History Allergies Allergy/AdvReac Type Severity Reaction Status Date / Time No Known Allergies Allergy Verified 09/29/19 20:06 Past Med/Surg History Medical History Multiple sclerosis UNABLE TO MOVE LE/PARAPESIS 2/2 PROGRESSIVE MULTIPLE SCLEROSIS; LIMITED MOVEMENT IN HANDS/UE Presence of intrathecal pump BACLOFEN Spasticity Urinary retention STRAIGHT CATH 2X DAILY Surgical History Cyst LEFT HIP CALCIUM DEPOSIT REMOVAL History of colonoscopy History of tooth extraction S/P insertion of intrathecal pump Family History Other Family history non-contributory Social History Preferred Language: Croatian Communication Ability: Effective 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 and A total of 10 systems reviewed and were otherwise negative Physical Exam Vital Signs Vital Signs - 24 hr 09/29/19 19:14 09/29/19 19:44 09/29/19 19:52 Temperature 37.3 C Temperature Source Oral Pulse Rate 129 H Pulse Rate [Left] 130 H Pulse Rate from SpO2 Sensor Pulse Rhythm [Left] Regular Respiratory Rate 24 20 Respiratory Effort / Characteristics Non-Labored Spontaneous Non-Labored Respiratory Depth Normal Normal Respiratory Pattern Regular Blood Pressure 152/88 H Blood Pressure [Right Arm] 159/94 H Blood Pressure Mean 109 Blood Pressure Mean [Right Arm] 115 Blood Pressure Position Sitting Pulse Oximetry 91 92 92 Oxygen Delivery Method Room Air Room Air Room Air Sepsis Recent Fever Within 48 Hours No Sepsis New/Unexplained Change in Mental Status No Sepsis Action Taken by Nursing No Action Required 09/29/19 20:05 09/29/19 20:34 Temperature Temperature Source Pulse Rate 129 H 126 H Pulse Rate [Left] Pulse Rate from SpO2 Sensor 130 H 126 H Pulse Rhythm [Left] Respiratory Rate 27 H 25 H Respiratory Effort / Characteristics Respiratory Depth Respiratory Pattern Blood Pressure 168/84 H 173/83 H Blood Pressure [Right Arm] Blood Pressure Mean 121 105 Blood Pressure Mean [Right Arm] Blood Pressure Position Pulse Oximetry 91 92 Oxygen Delivery Method Sepsis Recent Fever Within 48 Hours Sepsis New/Unexplained Change in Mental Status Sepsis Action Taken by Nursing CONSTITUTIONAL/VITAL SIGNS: Reviewed / noted above. GENERAL: Non-toxic in appearance. INTEGUMENTARY: Warm, dry, and [place]. HEAD: Normocephalic. EYES: without scleral icterus or trauma. ENT/OROPHARYNX: clear and moist. LYMPHADENOPATHY/NECK: Is supple without lymphadenopathy or meningismus. RESPIRATORY: Coarse breath sounds on the right. CARDIOVASCULAR: Regular rate and rhythm. GI/ABDOMEN: Soft and nontender. No organomegaly or pulsatile mass. No rebound or guarding. Normal bowel sounds. EXTREMITIES: Warm and well perfused. BACK: No CVA tenderness. NEUROLOGICAL: Slurred speech. Chronic findings of MS with wheelchair bound state. PSYCHIATRIC: normal affect. MUSCULOSKELETAL: Normally developed with good muscle tone. Course Course 1925: Past medical records reviewed. The patient was evaluated in room C08. A complete history and physical exam was performed. 2058: I spoke with Dr. Any Ocampo- Hospitalist about the patient's case and she will accept the patient for further evaluation. Administered Medications Sodium Chloride (Nss 1000ml) 2,000 mls @ 999 mls/hr IV .Q2H1M KACEY Stop: 09/29/19 21:45 Last Admin: 09/29/19 20:09 Dose: 999 mls/hr Documented by: [id number] Discontinued Medications Piperacillin Sod/Tazobactam Sod (Zosyn) 4.5 gm in 120 mls @ 240 mls/hr IV NOW ONE Stop: 09/29/19 20:05 Last Admin: 09/29/19 20:37 Dose: 240 mls/hr Documented by: [id number] Medical Decision Making Differential Diagnosis Differential Diagnosis includes but is not limited to dehydration, stroke, anemia, hypoglycemia, hyponatremia, hypernatremia, urinary tract infection, pneumonia, bronchitis, sepsis, gastroenteritis, additional abdominal pathology, metabolic abnormalities and infections. Medical Records Attestation: I reviewed the patient's medical records. Home Medications Current Medication List: was personally reviewed by me Laboratory Data Attestation: I reviewed the patient's lab results. Result diagrams: 09/29/19 19:43 09/29/19 19:43 Lab Results 09/29/19 09/29/19 09/29/19 Range/Units 19:43 19:43 19:45 WBC 23.86 H (4.8-10.8) K/uL RBC 4.51 (4.2-5.4) M/uL Hgb 14.1 (12.0-16.0) g/dL Hct 41.5 (37-47) % MCV 92.0 (80-100) fL MCH 31.3 (25-34) pg MCHC 34.0 (32-36) g/dL RDW Std Deviation 56.9 H (36.4-46.3) fL RDW Coeff of Ananya 16.9 H (11.5-14.5) % Plt Count 318 (130-400) K/uL MPV 9.1 (7.4-10.4) fL Immature Gran % (Auto) 0.5 % Neut % (Auto) 91.4 % Lymph % (Auto) 3.8 % [place] % (Auto) 4.1 % Eos % (Auto) 0.1 % Baso % (Auto) 0.1 % Immature Gran # (Auto) 0.13 H (0.00-0.02) K/uL Neut # (Auto) 21.81 H (1.4-6.5) K/uL Lymph # (Auto) 0.90 L (1.2-3.4) K/uL [place] # (Auto) 0.98 H (0.11-0.59) K/uL Eos # (Auto) 0.02 (0-0.5) K/uL Baso # (Auto) 0.02 (0-0.2) K/uL Sodium 133 L (136-145) mmol/L Potassium (3.5-5.1) mmol/L Chloride 100 (98-107) mmol/L Carbon Dioxide 26 (21-32) mmol/L Anion Gap 7.0 (3-11) BUN 8 (7-18) mg/dl Creatinine 0.44 L (0.6-1.2) mg/dl Est Cr Clr Drug Dosing Not Reportable Est GFR ( Amer) 120.2 Est GFR (Non-Af Amer) 103.7 BUN/Creatinine Ratio 17.5 (10-20) Glucose 90 (70-99) mg/dl Lactate 2.6 H* (0.4-2.0) mmol/L Calcium 10.2 H (8.5-10.1) mg/dl Total Bilirubin 0.9 (0.2-1) mg/dl AST (15-37) U/L ALT 64 (12-78) U/L Alkaline Phosphatase 87 (45-117) U/L Troponin I < 0.015 (0-0.045) ng/ml Total Protein 8.3 H (6.4-8.2) gm/dl Albumin 3.2 L (3.4-5.0) gm/dl Globulin 5.1 H (2.5-4.0) gm/dl Albumin/Globulin Ratio 0.6 L (0.9-2) Urine Color Urine Appearance (Clear) Urine pH (4.5-7.5) Ur Specific [place] (1.000-1.030) Urine Protein (Negative) Urine Glucose (UA) (Negative) Urine Ketones (Negative) Urine Blood (Negative) Urine Nitrite (Negative) Urine Bilirubin (Negative) Urine Urobilinogen (Negative) Ur Leukocyte Esterase (Negative) Urine WBC (Auto) (0-5) /hpf Urine RBC (Auto) (0-4) /hpf U Hyaline Cast (Auto) (0-5) /lpf U Epithel Cells (Auto) (0-5) /lpf Urine Bacteria (Auto) (Negative) Influenza Type A Ag (Neg) Influenza Type B Ag (Neg) 09/29/19 09/29/19 Range/Units 19:50 20:15 WBC (4.8-10.8) K/uL RBC (4.2-5.4) M/uL Hgb (12.0-16.0) g/dL Hct (37-47) % MCV (80-100) fL MCH (25-34) pg MCHC (32-36) g/dL RDW Std Deviation (36.4-46.3) fL RDW Coeff of Ananya (11.5-14.5) % Plt Count (130-400) K/uL MPV (7.4-10.4) fL Immature Gran % (Auto) % Neut % (Auto) % Lymph % (Auto) % [place] % (Auto) % Eos % (Auto) % Baso % (Auto) % Immature Gran # (Auto) (0.00-0.02) K/uL Neut # (Auto) (1.4-6.5) K/uL Lymph # (Auto) (1.2-3.4) K/uL [place] # (Auto) (0.11-0.59) K/uL Eos # (Auto) (0-0.5) K/uL Baso # (Auto) (0-0.2) K/uL Sodium (136-145) mmol/L Potassium (3.5-5.1) mmol/L Chloride (98-107) mmol/L Carbon Dioxide (21-32) mmol/L Anion Gap (3-11) BUN (7-18) mg/dl Creatinine (0.6-1.2) mg/dl Est Cr Clr Drug Dosing Est GFR ( Amer) Est GFR (Non-Af Amer) BUN/Creatinine Ratio (10-20) Glucose (70-99) mg/dl Lactate (0.4-2.0) mmol/L Calcium (8.5-10.1) mg/dl Total Bilirubin (0.2-1) mg/dl AST (15-37) U/L ALT (12-78) U/L Alkaline Phosphatase (45-117) U/L Troponin I (0-0.045) ng/ml Total Protein (6.4-8.2) gm/dl Albumin (3.4-5.0) gm/dl Globulin (2.5-4.0) gm/dl Albumin/Globulin Ratio (0.9-2) Urine Color Yellow Urine Appearance Clear (Clear) Urine pH >= 9.0 H (4.5-7.5) Ur Specific [place] 1.013 (1.000-1.030) Urine Protein Negative (Negative) Urine Glucose (UA) Negative (Negative) Urine Ketones 1+ H (Negative) Urine Blood 1+ H (Negative) Urine Nitrite Negative (Negative) Urine Bilirubin Negative (Negative) Urine Urobilinogen Negative (Negative) Ur Leukocyte Esterase 1+ H (Negative) Urine WBC (Auto) >30 H (0-5) /hpf Urine RBC (Auto) 10-30 H (0-4) /hpf U Hyaline Cast (Auto) 5-10 H (0-5) /lpf U Epithel Cells (Auto) 0-5 (0-5) /lpf Urine Bacteria (Auto) Negative (Negative) Influenza Type A Ag Neg for Influ A (Neg) Influenza Type B Ag Neg for Influ B (Neg) Imaging Data Radiologist's Impression: Radiology results as stated below per my review and the radiologist's interpretation: SINGLE VIEW CHEST CLINICAL HISTORY: Cough and fever. Change in mental status. FINDINGS: An AP, portable, upright chest radiograph is compared to study dated 07/30/2019. The examination is degraded by portable technique and patient rotation. The heart is mildly enlarged. The pulmonary vasculature is noncongested. There is mild elevation of the right hemidiaphragm. Bibasilar airspace opacities are noted. No large pleural effusion or pneumothorax is seen. The skeletal structures are osteopenic. The bony thorax is grossly intact. IMPRESSION: 1. There are bibasilar airspace opacities. This could represent atelectasis versus pneumonia/aspiration pneumonitis. Clinical correlation will be required and radiographic follow-up to resolution is recommended. 2. Mild cardiac enlargement. There is no radiographic evidence of congestive failure. Electronically signed by: Manuelito Caal M.D. 09/29/2019 8:35 PM ECG Data Attestation: I personally reviewed and interpreted this ECG as follows: Indication: + tachycardia Rate (beats per minute): 130 Rhythm: + sinus tachycardia ECG ST segments: + Normal ST segments ECG Findings: no PACs and no PVCs Blood Pressure Blood Pressure Findings: Elevated blood pressure Blood Pressure Disposition: further management by hospitalist JULIANNA Milan This is a 69-year-old female who presents to the ED with a chief complaint of fever, confusion and elevated heart rate. The patient has also decreased p.o. intake and is requiring oxygen during the day. She does use oxygen at night, per the . She has had the symptoms for 2 or 3 days. The patient is tachycardic here with a heart rate of 129. Her blood pressure is elevated. Her room air saturations are 91%. She is currently afebrile. She is altered, according to the . She attempts to talk with she seems to be slurring her speech. The patient is Quadra plegic/quadriparetic due to her advanced MS. Her lungs on the right sound coarse. White blood cell count is 23.86. Lactic acid level was elevated at 2.6. Troponin was negative, flu swab was negative. Chest x-ray reveals bibasilar opacities. Urine appears marginal for infection. The patient was given 2 L normal saline IV. She was given IV Levaquin and IV Zosyn. The patient will be seen by the hospitalist for further inpatient evaluation and care. Impression & Plan Pneumonia, Altered mental status Discharge Plan Visit Data Chief Complaint: Tachycardia Stated Complaint: SOB, HIGH HEART RATE, LOW OXYGEN LEVELS ED Provider: Anant Mccullough Discharge Problem: Pneumonia, Altered mental status Forms Stand Alone Forms: [facility] Prescriptions Prescriptions: No Action terbinafine HCl 250 mg tablet 250 mg PO DAILY RF: 0 multivitamin Tablet 1 tab PO QAM RF: 0 calcium carbonate [Calcium 500] 500 mg calcium (1,250 mg) Tablet 1 tab PO TID RF: 0 cholecalciferol (vitamin D3) [Vitamin D3] 1,000 unit Capsule 0 tab PO QPM RF: 0 risedronate [Actonel] 35 mg Tablet 1 tab PO WK RF: 0 baclofen 2,000 mcg/mL Solution 0 mcg continuous intrathecal infusion CONTINOUS RF: 0 albuterol sulfate [ProAir HFA] 90 mcg/actuation Hfa Aerosol Inhaler 2 puff INHALATION Q4 PRN (Reason: Shortness Of Breath Or Wheezing) RF: 0 Ocrevus 30 mg/mL Solution 300 mg IV .[id number] RF: 0 fluticasone propionate 50 mcg/actuation [place],Suspension 2 spry NA BID Qty: 1 RF: 0 hydrocortisone acetate [Anusol-HC] 25 mg suppository 25 mg NM HS Qty: 24 RF: 0 albuterol sulfate 2.5 mg /3 mL (0.083 %) solution for nebulization 0 mg inhalation TID RF: 0 nystatin 100,000 unit/gram cream 1 applic TOPICAL TID RF: 0 scopolamine base 1 mg over 3 days patch 3 day 1 patch transdermal UD RF: 0 cholecalciferol (vitamin D3) [Vitamin D3] 400 unit Capsule 400 unit PO QAM RF: 0 megestrol [Megace ES] 625 mg/5 mL suspension 10 ml PO DAILY RF: 0 Probiotic 3 billion cell Capsule 3,000 mmu cells PO QAM RF: 0 Referrals Referrals: Maury Johnston MD [Primary Care Provider] - The scribe's documentation has been prepared under my direction and personally reviewed by me in its entirety. I confirm that the note above accurately reflects all work, treatment, procedures, and medical decision making performed by me.
[2019-09-29] MEDS ORDERED: LEVOFLOXACIN/D5W 750 MG/150 ML BAG IV SCH (19:45)
[2019-09-29] MEDS ORDERED: SODIUM CHLORIDE 0.9% 1000ML 2,000 ML IV SCH (19:45)
[2019-09-29 20:03] LABS: Hematocrit (blood only) 41.5 % (37-47); Hemoglobin 14.1 g/dL (12.0-16.0); Mean Corpuscular Hemoglobin 31.3 pg (25-34); Mean Platelet Volume 9.1 fL (7.4-10.4); Platelet Count 318 K/uL (130-400); RDW Coefficient of Variation 16.9 % (11.5-14.5); RDW Standard Deviation 56.9 fL (36.4-46.3); Red Blood Count 4.51 M/uL (4.2-5.4); White Blood Count 23.86 K/uL (4.8-10.8)
[2019-09-29 20:26] LABS: Basophils # (auto) 0.02 K/uL (0-0.2); Basophils % (auto) 0.1 %; Eosinophils # (auto) 0.02 K/uL (0-0.5); Eosinophils % (auto) 0.1 %; Immature Granulocytes # (auto) 0.13 K/uL (0.00-0.02); Immature Granulocytes % (auto) 0.5 %; Lymphocytes % (auto) 3.8 %; Monocytes # (auto) 0.98 K/uL (0.11-0.59); Monocytes % (auto) 4.1 %; Neutrophils # (auto) 21.81 K/uL (1.4-6.5); Neutrophils % (auto) 91.4 %
--- NOTE | 2019-09-29 20:36 | XRay Report ---
SINGLE VIEW CHEST CLINICAL HISTORY: Cough and fever. Change in mental status. FINDINGS: An AP, portable, upright chest radiograph is compared to study dated 07/30/2019. The examina tion is degraded by portable technique and patient rotation. The heart is mildly enlarged. The pulmon jessica vasculature is noncongested. There is mild elevation of the right hemidiaphragm. Bibasilar airspa ce opacities are noted. No large pleural effusion or pneumothorax is seen. The skeletal structures ar e osteopenic. The bony thorax is grossly intact. IMPRESSION: 1. There are bibasilar airspace opacities. This could represent atelectasis versus pneumonia/aspirati on pneumonitis. Clinical correlation will be required and radiographic follow-up to resolution is rec ommended. 2. Mild cardiac enlargement. There is no radiographic evidence of congestive failure. Electronically signed by: Manuelito Caal M.D. 09/29/2019 8:35 PM
[2019-09-29 20:38] LABS: Appearance Urine Clear (Clear); Bacteria Urine Automated Negative (Negative); Bilirubin Urine Negative (Negative); Blood Urine 1+ (Negative); Color Urine Yellow; Epithelial Cell Urine Auto 0-5 /lpf (0-5); Glucose Urine UA Negative (Negative); Ketones Urine 1+ (Negative); Leukocyte Esterase Urine 1+ (Negative); Nitrite Urine Negative (Negative); Specific Gravity Urine 1.013 (1.000-1.030); Urobilinogen Urine Negative (Negative); WBC Urine Automated >30 /hpf (0-5); pH Urine >= 9.0 (4.5-7.5)
[2019-09-29 20:44] LABS: Protein Urine Negative (Negative); Sulfosalicylic Acid Urine Negative (Negative)
[2019-09-29 20:51] LABS: Alanine Aminotransferase 64 U/L (12-78); Albumin Globulin Ratio 0.6 (0.9-2); Albumin Level 3.2 gm/dl (3.4-5.0); Alkaline Phosphatase 87 U/L (45-117); BUN Creatinine Ratio 17.5 (10-20); Bilirubin,Total 0.9 mg/dl (0.2-1); Blood Urea Nitrogen 8 mg/dl (7-18); Calcium 10.2 mg/dl (8.5-10.1); Carbon Dioxide 26 mmol/L (21-32); Chloride 100 mmol/L (98-107); Est GFR (African American) 120.2; Est GFR (Non-African American) 103.7; Globulin 5.1 gm/dl (2.5-4.0); Glucose 90 mg/dl (70-99); Sodium 133 mmol/L (136-145); Total Protein 8.3 gm/dl (6.4-8.2); Troponin I < 0.015 ng/ml (0-0.045)
[2019-09-29 21:46] LABS: Potassium 3.9 mmol/L (3.5-5.1)
--- NOTE | 2019-09-29 23:21 | History & Physical Report ---
Date of Service September 29, 2019 Assessment & Plan (1) Right lower lobe pneumonia: 69-year-old female with history of MS on baclofen pump, urinary retentionstraight caths, recurrent UTIs, external hemorrhoids and prior admission in July 2019 for right lower lobe pneumonia presents with worsening shortness of breath and feeling ill for the last few days. Shortness of breath fever and confusion Concern for sepsis in the setting of right lower lobe pneumonia versus possible UTI Tachypneic and tachycardic to 130s, on room air Afebrile here, temp at home 99.1 which is higher for her WBC 23.8, lactate 2.6 EK sinus tach QTC 419, pulmonary disease pattern Negative Blood cultures pending Received Zosyn and Levaquin in the ED and 2 L NS Started on Vanco and Zosyn-given recent hospitalization and possible HCAP Nasal MRSA pending Started on duo nebs every 4 hr scheduled, albuterol inhaler as needed, continue home Flonase Started on LR 125 cc/h x 2 L Concern for possible aspiration given recurrent right lower lobe pneumonia - speech eval ordered Possible UTI Urine has not been smelling bad and color unchanged -usually UTI characteristics UA: 1+ blood, 1+ leuk esterase greater than 30 WBC, 10-30 RBC no bacteria Urine culture pending Antibiotics as above MS Continue home baclofen pump, scopolamine Urinary retention due to MS Straight cath twice daily and as needed External hemorrhoids Continue home and nasal FEN/GI: LR 125 cc/h x 2 L, heart healthy diet Code: Full DVT prophylaxis: Lovenox Disposition: [facility] with telemetry (2) Sepsis: (3) External hemorrhoid: (4) Presence of intrathecal pump: (5) Urinary retention: (6) Multiple sclerosis: History of Present Illness Chief Complaint: Shortness of breath Primary Care Provider: Maury Johnston MD 69-year-old female with history of MS on baclofen pump, urinary retentionstraight caths, recurrent UTIs, external hemorrhoids and prior admission in July 2019 for right lower lobe pneumonia presents with worsening shortness of breath and feeling ill for the last few days. According to she was doing well since last admission until a few days ago when she became more hypoxic and incoherent. She was using 2 L of oxygen at night but required oxygen all day yesterday. She is having congestion and runny nose which is new for her. No cough, sore throat or otalgia. Today she she had difficulty staying awake and could not hold a conversation. She had a temp of 99.1 today which was unusual for her as she usually runs around 97. She also had chills. She denies any headache/lightheadedness, chest pain, abdominal pain, nausea, vomiting, constipation, diarrhea, hematuria. Her when she gets UTIs she has bad urine order and her urine color changes which has not happened this time. Social history: Social drinker, never smoked Allergies Allergy/AdvReac Type Severity Reaction Status Date / Time No Known Allergies Allergy Verified 09/29/19 20:06 Home Medications Home Medications Medication Instructions Recorded Confirmed Type calcium carbonate [Calcium 500] 1 tab PO TID 01/18/19 09/29/19 History cholecalciferol (vitamin D3) 0 tab PO QPM 01/18/19 09/29/19 History [Vitamin D3] multivitamin 1 tab PO QAM 01/18/19 09/29/19 History risedronate [Actonel] 1 tab PO WK 01/18/19 09/29/19 History Ocrevus 300 mg IV .[id number] 07/26/19 09/29/19 History albuterol sulfate [ProAir HFA] 2 puff INHALATION Q4 PRN 07/26/19 09/29/19 History baclofen 0 mcg CONTINUOUS INTRATHECAL 07/26/19 09/29/19 History INFUSION CONTINOUS fluticasone propionate 2 spry NA BID #1 g 07/30/19 09/29/19 Rx hydrocortisone acetate [Anusol-HC] 25 mg WV HS #24 ea 07/30/19 09/29/19 Rx terbinafine HCl 250 mg tablet 250 mg PO DAILY 08/20/19 09/29/19 History albuterol sulfate 0 mg INHALATION TID 09/29/19 09/29/19 History cholecalciferol (vitamin D3) 400 unit PO QAM 09/29/19 09/29/19 History [Vitamin D3] lactobacillus combination no.4 3,000 mmu cells PO QAM 09/29/19 09/29/19 History [Probiotic] megestrol [Megace ES] 10 ml PO DAILY 09/29/19 09/29/19 History nystatin 1 applic TOPICAL TID 09/29/19 09/29/19 History scopolamine base 1 patch TRANSDERMAL UD 09/29/19 09/29/19 History Past Med/Surg History Medical History DVT prophylaxis External hemorrhoid Goals of care, counseling/discussion Hypernatremia Hypoxia (Acute) Multiple sclerosis UNABLE TO MOVE LE/PARAPESIS 2/2 PROGRESSIVE MULTIPLE SCLEROSIS; LIMITED MOVEMENT IN HANDS/UE Presence of intrathecal pump BACLOFEN Right lower lobe pneumonia (Acute) Sepsis (Acute) Skin lesion of back Spasticity Urinary retention STRAIGHT CATH 2X DAILY Surgical History Cyst LEFT HIP CALCIUM DEPOSIT REMOVAL History of colonoscopy History of tooth extraction S/P insertion of intrathecal pump Family History Other Family history non-contributory Social History Preferred Language: Ken[place] Communication Ability: Impaired 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 Beliefs That Will Affect Care: None marital status: Current Living Situation: Spouse current occupational status: disabled Feels Safe at Home: Yes Safety Concerns: Feels Safe At This Time Smoking Status: Never smoker Second Hand Exposure: No ; Hx Alcohol Use: No Hx Substance Use: No Review of Systems Review of Systems: As per HPI Physical Exam Physical Exam: General: In NAD, alert and apply to hold a conversation Neuro: A&O x 4 Pulm: Rhonchi appreciated on R anterior and posterior lung robison, L lung robison CTA, equal breath sounds bilaterally CV: RRR, no m/r/g, cap refill < 2 secs Abdomen:+BS, no TTP in all quadrants, non-distended, baclofen pump on R side LE: no LE edema, no calf TTP Results & Data Vital Signs (Past 12 Hours) Vital Signs Temp Pulse Pulse Resp BP BP Pulse Ox 09/29/19 22:30 133 H 26 H 149/84 H 92 09/29/19 22:00 127 H 19 151/86 H 91 09/29/19 21:30 129 H 26 H 142/80 H 91 09/29/19 21:01 128 H 21 90 09/29/19 21:00 126 H 23 148/90 H 91 09/29/19 20:35 126 H 25 H 91 09/29/19 20:34 126 H 25 H 173/83 H 92 09/29/19 20:05 129 H 27 H 168/84 H 91 09/29/19 19:52 130 H 20 159/94 H 92 09/29/19 19:44 92 09/29/19 19:14 37.3 C 129 H 24 152/88 H 91 Laboratory Results Abnormal lab results 09/29/19 09/29/19 09/29/19 Range/Units 19:43 19:43 19:45 WBC 23.86 H (4.8-10.8) K/uL RDW Std Deviation 56.9 H (36.4-46.3) fL RDW Coeff of Ananya 16.9 H (11.5-14.5) % Immature Gran # (Auto) 0.13 H (0.00-0.02) K/uL Neut # (Auto) 21.81 H (1.4-6.5) K/uL Lymph # (Auto) 0.90 L (1.2-3.4) K/uL [place] # (Auto) 0.98 H (0.11-0.59) K/uL Sodium 133 L (136-145) mmol/L Creatinine 0.44 L (0.6-1.2) mg/dl Lactate 2.6 H* (0.4-2.0) mmol/L Calcium 10.2 H (8.5-10.1) mg/dl Total Protein 8.3 H (6.4-8.2) gm/dl Albumin 3.2 L (3.4-5.0) gm/dl Globulin 5.1 H (2.5-4.0) gm/dl Albumin/Globulin Ratio 0.6 L (0.9-2) Urine pH (4.5-7.5) Urine Ketones (Negative) Urine Blood (Negative) Ur Leukocyte Esterase (Negative) Urine WBC (Auto) (0-5) /hpf Urine RBC (Auto) (0-4) /hpf U Hyaline Cast (Auto) (0-5) /lpf 09/29/19 Range/Units 20:15 WBC (4.8-10.8) K/uL RDW Std Deviation (36.4-46.3) fL RDW Coeff of Ananya (11.5-14.5) % Immature Gran # (Auto) (0.00-0.02) K/uL Neut # (Auto) (1.4-6.5) K/uL Lymph # (Auto) (1.2-3.4) K/uL [place] # (Auto) (0.11-0.59) K/uL Sodium (136-145) mmol/L Creatinine (0.6-1.2) mg/dl Lactate (0.4-2.0) mmol/L Calcium (8.5-10.1) mg/dl Total Protein (6.4-8.2) gm/dl Albumin (3.4-5.0) gm/dl Globulin (2.5-4.0) gm/dl Albumin/Globulin Ratio (0.9-2) Urine pH >= 9.0 H (4.5-7.5) Urine Ketones 1+ H (Negative) Urine Blood 1+ H (Negative) Ur Leukocyte Esterase 1+ H (Negative) Urine WBC (Auto) >30 H (0-5) /hpf Urine RBC (Auto) 10-30 H (0-4) /hpf U Hyaline Cast (Auto) 5-10 H (0-5) /lpf Diagnostic Findings SINGLE VIEW CHEST CLINICAL HISTORY: Cough and fever. Change in mental status. FINDINGS: An AP, portable, upright chest radiograph is compared to study dated 07/30/2019. The examination is degraded by portable technique and patient rotation. The heart is mildly enlarged. The pulmonary vasculature is noncongested. There is mild elevation of the right hemidiaphragm. Bibasilar airspace opacities are noted. No large pleural effusion or pneumothorax is seen. The skeletal structures are osteopenic. The bony thorax is grossly intact. IMPRESSION: 1. There are bibasilar airspace opacities. This could represent atelectasis versus pneumonia/aspiration pneumonitis. Clinical correlation will be required and radiographic follow-up to resolution is recommended. 2. Mild cardiac enlargement. There is no radiographic evidence of congestive failure. Medications Administered Current Inpatient Medications Levofloxacin/Dextrose (Levaquin/D5w) 750 mg in 150 mls @ 100 mls/hr IV Q24H KACEY Stop: 10/13/19 19:44 Last Infusion: 09/29/19 22:48 Dose: Infused Documented by: Miscellaneous Information (Consult) 1 ea N/A UD PRN PRN Reason: Consult Stop: 10/29/19 19:35 Code Status & VTE Plan Code Status Full VTE Prophylaxis Plan VTE Prophylaxis will be ordered: Yes Supervising Physician Co-Signing Physician Notes Patient seen and examined, chart reviewed, case discussed with Dr. Perez and I agree with her assessment and plan as documented above. Briefly, patient is an unfortunate 69-year-old female with history of MSquadriplegic/wheelchair-bound presenting today with fever/shortness of breath and some worsening confusion On physical exam she is tachycardic at 133 bpm, tachypneic to 26 breaths/min. Patient quadriplegic, difficulty with speech Dry mucous membranes. Scopolamine patch in place for secretion management Heart plus S1/S2 regular tachycardic lungscoarse breath sounds in right base Abdomenbowel sounds present, soft, nontender, nondistended Labs and images reviewed. Significant for leukocytosis with WBC = 23.86 with neutrophils and bands, elevated lactate at 2.6, sodium = 133, urine with 1+ ketones 1+ blood 1+ leuk esterase, 30 WBCs and casts Chest x-ray with bibasilar airspace opacities Assessment/plan: 61-year-old female with MS/quadriplegia presenting with with sepsis secondary to pneumonia (tachycardia, tachypnea, elevated lactate, elevated WBCs) Admit to medical floor telemetry Follow cultures We will treat with broad-spectrum antibiotics, vancomycin and Zosyn for now Check MRSA swab Nebs as needed Continue home medications Resident Activity Tracking Resident Involvement: Resident Care Provided Care Provided: Adult Hospital Medicine (1) Sepsis Sepsis acute organ dysfunction status: unspecified Sepsis type: sepsis due to unspecified organism Qualified Code(s): A41.9 - Sepsis, unspecified organism (2) Right lower lobe pneumonia Pneumonia type: due to unspecified organism Qualified Code(s): J18.1 - Lobar pneumonia, unspecified organism
[2019-09-30] MEDS ORDERED: PIPERACILL/TAZOBAC CONSULT ACTIVE PRN (01:32)
[2019-09-30] MEDS ORDERED: VANCOMYCIN CONSULT ACTIVE PRN (01:32)
[2019-09-30] MEDS ORDERED: ACETAMINOPHEN 325 MG TAB PO PRN (01:32)
[2019-09-30] MEDS ORDERED: VANCOMYCIN HCL 1,500 MG in SODIUM CHLORIDE 0.9% 500 ML IV ONE (02:00)
[2019-09-30] MEDS ORDERED: ALBUTEROL HFA 8 GM INHALER INH PRN (02:09)
[2019-09-30] MEDS: LACTATED RINGER'S 1,000 ML IV SCH ×2 (02:16→10:29)
[2019-09-30] MEDS: PIPERACILLIN/TAZOBACTAM 3.375 GM in DEXTROSE 5% 100 ML IV SCH ×3 (02:26→18:08)
[2019-09-30] MEDS: CHECK SCOPOLAMINE PATCH PLACEMENT SCH ×3 (02:27→17:14)
[2019-09-30] MEDS: ALBUT/IPRATROP 3MG/0.5MG NEB 3 ML VIAL NEB SCH ×2 (03:31→07:38)
--- NOTE | 2019-09-30 03:58 | Billing Data ---
Coding Level of Care Code 43263 Initial Inpt Care Lvl 2
[2019-09-30] MEDS: BACLOFEN PAIN PUMP INT SPINAL SCH (06:25)
[2019-09-30 06:42] LABS: Basophils # (auto) 0.01 K/uL (0-0.2); Eosinophils # (auto) 0.01 K/uL (0-0.5); Hematocrit (blood only) 35.6 % (37-47); Hemoglobin 11.8 g/dL (12.0-16.0); Immature Granulocytes # (auto) 0.04 K/uL (0.00-0.02); Immature Granulocytes % (auto) 0.2 %; Lymphocytes % (auto) 4.6 %; Mean Corpuscular Hemoglobin 30.5 pg (25-34); Mean Corpuscular Hgb Conc 33.1 g/dL (32-36); Monocytes # (auto) 0.98 K/uL (0.11-0.59); Monocytes % (auto) 4.5 %; Neutrophils # (auto) 19.65 K/uL (1.4-6.5); Neutrophils % (auto) 90.7 %; Platelet Count 259 K/uL (130-400); RDW Standard Deviation 56.6 fL (36.4-46.3); Red Blood Count 3.87 M/uL (4.2-5.4); White Blood Count 21.69 K/uL (4.8-10.8)
[2019-09-30 07:00] LABS: BUN Creatinine Ratio 24.9 (10-20); Calcium 8.7 mg/dl (8.5-10.1); Creatinine Clr Calc Pharmacy 201.6 ml/min; Est GFR (African American) 144.8; Est GFR (Non-African American) 124.9; Potassium 3.2 mmol/L (3.5-5.1)
[2019-09-30] MEDS: MEGESTROL ACETATE 800 MG/20 ML UDP PO SCH (08:35)
[2019-09-30] MEDS: NYSTATIN CR 15 GM TUBE EXT SCH ×3 (08:35→21:20)
[2019-09-30] MEDS: ENOXAPARIN INJ 30 MG/0.3 ML SYR SQ SCH (08:36)
[2019-09-30] MEDS: TERBINAFINE HCL 250 MG TAB PO SCH (08:37)
[2019-09-30] MEDS: SCOPOLAMINE 1.5 MG TDSY TD SCH (08:37)
[2019-09-30] MEDS: FLUTICASONE PROPIONATE NA SPR 16 GM BTL SCH ×2 (08:37→21:20)
[2019-09-30] MEDS: MULTIVITAMIN TAB PO SCH (08:37)
[2019-09-30] MEDS: CALCIUM CARBONATE 1250MG TAB PO SCH ×3 (08:38→21:21)
[2019-09-30] MEDS: CHOLECALCIFEROL (VITAMIN D) 400 UNITS TABLET PO SCH (08:38)
--- NOTE | 2019-09-30 08:51 | Pharmacy Report ---
Pharmacy Abx Initial Consult - Date of Service September 30, 2019 - Pharmacy Dosing Scope Date of Consult: 09/29/19 Consultation requested by: Dr. Velasquez Pharmacy is consulted to initiate Vancomycin + Zosyn IV dosing therapy, order appropriate labs and adjust drug dose/frequency. - Subjective The patient is a 69 year old F admitted on 09/29/19 23:04. - Objective Height: 5 ft 6 in Weight: 63.7 kg Vital Signs (Past 12hrs): Vital Signs Temp Pulse Pulse Resp BP BP Pulse Ox 09/30/19 07:38 107 H 18 94 09/30/19 07:34 37.0 C 103 H 20 130/76 94 09/30/19 05:39 123 H 09/30/19 03:58 37 C 124 H 20 108/71 93 09/30/19 03:43 121 H 16 93 09/30/19 02:49 37.3 C 126 H 18 143/90 H 91 09/30/19 01:32 09/29/19 23:29 124 H 18 160/94 H 92 09/29/19 22:30 133 H 26 H 149/84 H 92 09/29/19 22:00 127 H 19 151/86 H 91 09/29/19 21:30 129 H 26 H 142/80 H 91 09/29/19 21:01 128 H 21 90 09/29/19 21:00 126 H 23 148/90 H 91 Pulse Ox 09/30/19 07:38 09/30/19 07:34 09/30/19 05:39 09/30/19 03:58 09/30/19 03:43 09/30/19 02:49 09/30/19 01:32 91 09/29/19 23:29 09/29/19 22:30 09/29/19 22:00 09/29/19 21:30 09/29/19 21:01 09/29/19 21:00 Lab Results (24hrs): Laboratory Tests (24 Hours) 09/30/19 09/30/19 09/29/19 06:34 06:34 19:43 WBC 21.69 H Neut # (Auto) 19.65 H Creatinine 0.25 L 0.44 L Est Cr Clr Drug Dosing 201.6 Not Reportable 09/29/19 19:43 WBC 23.86 H Neut # (Auto) 21.81 H Creatinine Est Cr Clr Drug Dosing Micro Results: 09/29/19 20:15 Urine Culture - Pending Urine,Straight Cath 09/29/19 19:43 Aerobic Blood Culture - Pending Blood Anaerobic Blood Culture - Pending 09/29/19 19:43 Aerobic Blood Culture - Pending Blood Anaerobic Blood Culture - Pending - Risk Factors for Resistance * Hospitalization for 48 hours or more within the past 90 days - admitted for RLL pneumonia 07/26-08/01 * 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 - Assessment & Plan Assessment Ms. Pagan is a 69 year old F with a history of MS, RLL pneumonia, recurrent UTI, and sepsis. She presents to the ED with her with complaints of tachycardia x3days. Her also reports low grade fever and confusion at home. She normal uses O2 at night, but recently has also been using it during the day. Patient was admitted 07/26-08/01 for RLL pneumonia. At that time she was also started on Vancomycin (1000mg Q8H), but the regimen was discontinued before a trough was obtained. WBC 21.7 afebrile since admission nasal swab negative - but due to concern for sepsis did not pursue de-escalation until preliminary blood cultures result. SCr 0.25 - this is likely not a true reflection of her renal function 2/2 advanced MS. Some PK studies often round SCr to 1.0 for elderly patients with low serum creatinine. Due to patient age, weight etc, decided to round to a value of 0.8 for the purposes of calculating estimated PK parameters. Plan Vancomycin and Zosyn for treatment of possible sepsis secondary to pneumonia Vancomycin IV * Estimated PK Parameters: Vd 0.7 L/kg (probably closer to 0.55 or 0.6) * Used a value of 0.8mg/dL for SCr to hopefully give a better estimate of renal function - eCrCl 55 mL/min, t 1/2: 14hr, ke: 0.056 * Loading dose: 1500 mg (24 mg/kg) * Maintenance dose: 1000 mg IV (15.7 mg/kg) every 18 hours * Goal trough level : 15 to 20 mcg/mL * Will order a trough with the 4th maintenance dose if drug therapy continues. May obtain a trough with 3rd dose if clinically indicated. * The interval will likely need to be adjusted to q24HR, but in order to get adequate lung penetration will dose more aggressively to start. Piperacillin/tazobactam * 4.5 g bolus administered over 30 minutes, then 3.375 g IV extended infusion every 8 hours for CrCl greater than 20 mL/min. Pharmacy will continue to follow and will adjust dose/frequency as necessary. Thank you.
--- NOTE | 2019-09-30 08:52 | Hospitalist Progress Note ---
Date of Service September 30, 2019 Assessment & Plan (1) Right lower lobe pneumonia: 69-year-old female with history of MS on baclofen pump, urinary retentionstraight caths, recurrent UTIs, external hemorrhoids and prior admission in July 2019 for right lower lobe pneumonia presents with worsening shortness of breath and feeling ill for the last few days. Hospital versus community-acquired pneumonia Patient with a history of right lower lobe pneumonia in 2019 presented with worsening shortness of breath feeling ill for the past 3 days. On admission the patient was tachycardic to the 130s and tachypneic on room air. She was afebrile however had a subjective fever at home. White count on admission was 23.8 and lactate was 2.6 EKG obtained that was 131 for heart rate QTC of 419 with a pulmonary disease pattern. Patient was flu negative, blood cultures pending. Given her recent hospitalization for pneumonia she was started on vancomycin and Zosyn out of concern for H CAP. MRSA nasal swab was obtained and was negative. In the emergency department she was given vancomycin and Zosyn as well as 2 L of lactated Ringer's for fluid resuscitation. Given her history of MS there is concern for possible aspirations speech and swallow was consulted. -Reports improvement of respiratory symptoms overnight has been afebrile since admission -WBC 23.86 ->21.69 -Lactate:2.6->0.8 -Continue vancomycin and Zosyn -Negative Mrsa -Narrow pending culture results -Scheduled albuterol nebulizers every 6 hours -DC duo nebs as patient wears a scopolamine patch and ipratropium was drying her out -Scheduled budesonide nebulizer twice daily -Prednisone burst 50 mg p.o. daily x 5 days Possible UTI Urine has not been smelling bad and color unchanged -usually UTI characteristics. UA: 1+ blood, 1+ leuk esterase greater than 30 WBC, 10-30 RBC no bacteria. Patient's reports she has a chronic UTI with waxing and waning of intensity. -Urine culture pending -Antibiotics as above Concern for sepsis On presentation bed 3 out of the 4 Sirs criteria. Febrile, tachycardic, leukocytosis. Overnight fever resolved however still tachycardic and with elevated white count. Monitor closely for signs and symptoms of decompensation. -abx as above -s/p 2 liter fluid resuscitation -Follow-up blood and urine cultures Inability To Speak 2/2 to dryness and respiratory secretions Since becoming ill patient reports she has had an inability to speak secondary to the feeling of dry mucus secretions in her throat she said that this began after receiving nebulizer treatments. Given the fact she is on daily scopolamine the additional muscarinic stimulation from the ipratropium likely resulted in drying her secretions. Will hold ipratropium and hopefully will improve with nebulized and oral steroids. -Avoid drying agents and additional muscarinic stimulation Hypokalemia 09/30 K was 3.2. -Repleted 20 meq po x3 -trend bmp MS Continue home baclofen pump, scopolamine Urinary retention due to MS Straight cath twice daily and as needed Swallowing dysfunction -Extensive discussion with at bedside - would like to feed her full diet knowing the risk of aspiration and respiratory failure and . -Would like to wait to discuss with family before addressing the code status while feeding full diet. External hemorrhoids Continue home anusol FEN/GI: heart healthy diet Code: Full DVT prophylaxis: [facility] Caleb Ocampo MD PGY 2, [facility] This chart was completed utilizing [employer] voice recognition software. Grammatical errors, random word insertions, pronoun errors, and in complete sentences are an occasional consequence of the system. Any questions or concer ns about the content, text, or information contained within the body of this dictation should be addressed directly to the physician for clarification. Supervising Physician Co-Signing Physician Notes Resident Physician Supervision Note: I independently interviewed and examined the patient and verified the florentino history and physical, reviewed labs and image studies, discussed the case with the resident Dr. Ocampo and agree with the findings and care plan. Subjective Patient laying in bed this morning in no acute distress. Reports feeling better since admission and breathing has improved. She is reporting significant mucus in the back of her throat as well as having a dry feeling. She has lost her voice as a result of this. May be secondary to scopolamine plus ipratropium. Patient also reporting secretions in her oropharynx which are distressing to her. Patient patient currently tolerating diet, straight cath 3 times daily, stooling, sleeping. All questions answered, no acute concerns. Physical Exam Physical Exam: General: No acute distress HEENT: Normal cephalic atraumatic Neck: Normal visual inspection Cardiac: Tachycardic regular rhythm did not appreciate significant murmurs rubs or gallops, negative pedal edema Respiratory: Decreased air movement bilaterally with rhonchi GI: Bowel sounds present MSK: Quadriplegic Neuro: Alert and oriented Psych: Calm cooperative good affect Results & Data Vital Signs (Past 12 Hours) Vital Signs Temp Pulse Pulse Resp BP BP Pulse Ox 09/30/19 07:38 107 H 18 94 09/30/19 07:34 37.0 C 103 H 20 130/76 94 09/30/19 05:39 123 H 09/30/19 03:58 37 C 124 H 20 108/71 93 09/30/19 03:43 121 H 16 93 09/30/19 02:49 37.3 C 126 H 18 143/90 H 91 09/30/19 01:32 09/29/19 23:29 124 H 18 160/94 H 92 09/29/19 22:30 133 H 26 H 149/84 H 92 09/29/19 22:00 127 H 19 151/86 H 91 09/29/19 21:30 129 H 26 H 142/80 H 91 09/29/19 21:01 128 H 21 90 09/29/19 21:00 126 H 23 148/90 H 91 Pulse Ox 09/30/19 07:38 09/30/19 07:34 09/30/19 05:39 09/30/19 03:58 09/30/19 03:43 09/30/19 02:49 09/30/19 01:32 91 09/29/19 23:29 09/29/19 22:30 09/29/19 22:00 09/29/19 21:30 09/29/19 21:01 09/29/19 21:00 Laboratory Results 09/30/19 09/30/19 09/30/19 Range/Units 06:34 06:34 06:34 WBC 21.69 H (4.8-10.8) K/uL RBC 3.87 L (4.2-5.4) M/uL Hgb 11.8 L (12.0-16.0) g/dL Hct 35.6 L (37-47) % MCV 92.0 (80-100) fL MCH 30.5 (25-34) pg MCHC 33.1 (32-36) g/dL RDW Std Deviation 56.6 H (36.4-46.3) fL RDW Coeff of Ananya 17.0 H (11.5-14.5) % Plt Count 259 (130-400) K/uL MPV 9.0 (7.4-10.4) fL Immature Gran % (Auto) 0.2 % Neut % (Auto) 90.7 % Lymph % (Auto) 4.6 % Nance % (Auto) 4.5 % Eos % (Auto) 0.0 % Baso % (Auto) 0.0 % Immature Gran # (Auto) 0.04 H (0.00-0.02) K/uL Neut # (Auto) 19.65 H (1.4-6.5) K/uL Lymph # (Auto) 1.00 L (1.2-3.4) K/uL Nance # (Auto) 0.98 H (0.11-0.59) K/uL Eos # (Auto) 0.01 (0-0.5) K/uL Baso # (Auto) 0.01 (0-0.2) K/uL Sodium 138 (136-145) mmol/L Potassium 3.2 L D (3.5-5.1) mmol/L Chloride 107 (98-107) mmol/L Carbon Dioxide 23 (21-32) mmol/L Anion Gap 8.0 (3-11) BUN 6 L (7-18) mg/dl Creatinine 0.25 L (0.6-1.2) mg/dl Est Cr Clr Drug Dosing 201.6 Est GFR ( Amer) 144.8 Est GFR (Non-Af Amer) 124.9 BUN/Creatinine Ratio 24.9 H (10-20) Glucose 117 H (70-99) mg/dl Lactate 0.8 (0.4-2.0) mmol/L Calcium 8.7 (8.5-10.1) mg/dl Total Bilirubin (0.2-1) mg/dl AST (15-37) U/L ALT (12-78) U/L Alkaline Phosphatase (45-117) U/L Troponin I (0-0.045) ng/ml Total Protein (6.4-8.2) gm/dl Albumin (3.4-5.0) gm/dl Globulin (2.5-4.0) gm/dl Albumin/Globulin Ratio (0.9-2) Urine Color Urine Appearance (Clear) Urine pH (4.5-7.5) Ur Specific Everetts (1.000-1.030) Urine Protein (Negative) Urine Glucose (UA) (Negative) Urine Ketones (Negative) Urine Blood (Negative) Urine Nitrite (Negative) Urine Bilirubin (Negative) Urine Urobilinogen (Negative) Ur Leukocyte Esterase (Negative) Urine WBC (Auto) (0-5) /hpf Urine RBC (Auto) (0-4) /hpf U Hyaline Cast (Auto) (0-5) /lpf U Epithel Cells (Auto) (0-5) /lpf Urine Bacteria (Auto) (Negative) Nasal Screen MRSA (PCR) (Negative) Influenza Type A Ag (Neg) Influenza Type B Ag (Neg) 09/30/19 09/29/19 09/29/19 Range/Units 06:15 21:19 20:15 WBC (4.8-10.8) K/uL RBC (4.2-5.4) M/uL Hgb (12.0-16.0) g/dL Hct (37-47) % MCV (80-100) fL MCH (25-34) pg MCHC (32-36) g/dL RDW Std Deviation (36.4-46.3) fL RDW Coeff of Ananya (11.5-14.5) % Plt Count (130-400) K/uL MPV (7.4-10.4) fL Immature Gran % (Auto) % Neut % (Auto) % Lymph % (Auto) % Nance % (Auto) % Eos % (Auto) % Baso % (Auto) % Immature Gran # (Auto) (0.00-0.02) K/uL Neut # (Auto) (1.4-6.5) K/uL Lymph # (Auto) (1.2-3.4) K/uL Nance # (Auto) (0.11-0.59) K/uL Eos # (Auto) (0-0.5) K/uL Baso # (Auto) (0-0.2) K/uL Sodium (136-145) mmol/L Potassium 3.9 (3.5-5.1) mmol/L Chloride (98-107) mmol/L Carbon Dioxide (21-32) mmol/L Anion Gap (3-11) BUN (7-18) mg/dl Creatinine (0.6-1.2) mg/dl Est Cr Clr Drug Dosing Est GFR ( Amer) Est GFR (Non-Af Amer) BUN/Creatinine Ratio (10-20) Glucose (70-99) mg/dl Lactate (0.4-2.0) mmol/L Calcium (8.5-10.1) mg/dl Total Bilirubin (0.2-1) mg/dl AST 23 (15-37) U/L ALT (12-78) U/L Alkaline Phosphatase (45-117) U/L Troponin I (0-0.045) ng/ml Total Protein (6.4-8.2) gm/dl Albumin (3.4-5.0) gm/dl Globulin (2.5-4.0) gm/dl Albumin/Globulin Ratio (0.9-2) Urine Color Yellow Urine Appearance Clear (Clear) Urine pH >= 9.0 H (4.5-7.5) Ur Specific Everetts 1.013 (1.000-1.030) Urine Protein Negative (Negative) Urine Glucose (UA) Negative (Negative) Urine Ketones 1+ H (Negative) Urine Blood 1+ H (Negative) Urine Nitrite Negative (Negative) Urine Bilirubin Negative (Negative) Urine Urobilinogen Negative (Negative) Ur Leukocyte Esterase 1+ H (Negative) Urine WBC (Auto) >30 H (0-5) /hpf Urine RBC (Auto) 10-30 H (0-4) /hpf U Hyaline Cast (Auto) 5-10 H (0-5) /lpf U Epithel Cells (Auto) 0-5 (0-5) /lpf Urine Bacteria (Auto) Negative (Negative) Nasal Screen MRSA (PCR) Negative (Negative) Influenza Type A Ag (Neg) Influenza Type B Ag (Neg) 09/29/19 09/29/19 09/29/19 Range/Units 19:50 19:45 19:43 WBC (4.8-10.8) K/uL RBC (4.2-5.4) M/uL Hgb (12.0-16.0) g/dL Hct (37-47) % MCV (80-100) fL MCH (25-34) pg MCHC (32-36) g/dL RDW Std Deviation (36.4-46.3) fL RDW Coeff of Ananya (11.5-14.5) % Plt Count (130-400) K/uL MPV (7.4-10.4) fL Immature Gran % (Auto) % Neut % (Auto) % Lymph % (Auto) % Nance % (Auto) % Eos % (Auto) % Baso % (Auto) % Immature Gran # (Auto) (0.00-0.02) K/uL Neut # (Auto) (1.4-6.5) K/uL Lymph # (Auto) (1.2-3.4) K/uL Nance # (Auto) (0.11-0.59) K/uL Eos # (Auto) (0-0.5) K/uL Baso # (Auto) (0-0.2) K/uL Sodium 133 L (136-145) mmol/L Potassium (3.5-5.1) mmol/L Chloride 100 (98-107) mmol/L Carbon Dioxide 26 (21-32) mmol/L Anion Gap 7.0 (3-11) BUN 8 (7-18) mg/dl Creatinine 0.44 L (0.6-1.2) mg/dl Est Cr Clr Drug Dosing Not Reportable Est GFR ( Amer) 120.2 Est GFR (Non-Af Amer) 103.7 BUN/Creatinine Ratio 17.5 (10-20) Glucose 90 (70-99) mg/dl Lactate 2.6 H* (0.4-2.0) mmol/L Calcium 10.2 H (8.5-10.1) mg/dl Total Bilirubin 0.9 (0.2-1) mg/dl AST (15-37) U/L ALT 64 (12-78) U/L Alkaline Phosphatase 87 (45-117) U/L Troponin I < 0.015 (0-0.045) ng/ml Total Protein 8.3 H (6.4-8.2) gm/dl Albumin 3.2 L (3.4-5.0) gm/dl Globulin 5.1 H (2.5-4.0) gm/dl Albumin/Globulin Ratio 0.6 L (0.9-2) Urine Color Urine Appearance (Clear) Urine pH (4.5-7.5) Ur Specific Everetts (1.000-1.030) Urine Protein (Negative) Urine Glucose (UA) (Negative) Urine Ketones (Negative) Urine Blood (Negative) Urine Nitrite (Negative) Urine Bilirubin (Negative) Urine Urobilinogen (Negative) Ur Leukocyte Esterase (Negative) Urine WBC (Auto) (0-5) /hpf Urine RBC (Auto) (0-4) /hpf U Hyaline Cast (Auto) (0-5) /lpf U Epithel Cells (Auto) (0-5) /lpf Urine Bacteria (Auto) (Negative) Nasal Screen MRSA (PCR) (Negative) Influenza Type A Ag Neg for Influ A (Neg) Influenza Type B Ag Neg for Influ B (Neg) 09/29/19 Range/Units 19:43 WBC 23.86 H (4.8-10.8) K/uL RBC 4.51 (4.2-5.4) M/uL Hgb 14.1 (12.0-16.0) g/dL Hct 41.5 (37-47) % MCV 92.0 (80-100) fL MCH 31.3 (25-34) pg MCHC 34.0 (32-36) g/dL RDW Std Deviation 56.9 H (36.4-46.3) fL RDW Coeff of Ananya 16.9 H (11.5-14.5) % Plt Count 318 (130-400) K/uL MPV 9.1 (7.4-10.4) fL Immature Gran % (Auto) 0.5 % Neut % (Auto) 91.4 % Lymph % (Auto) 3.8 % Nance % (Auto) 4.1 % Eos % (Auto) 0.1 % Baso % (Auto) 0.1 % Immature Gran # (Auto) 0.13 H (0.00-0.02) K/uL Neut # (Auto) 21.81 H (1.4-6.5) K/uL Lymph # (Auto) 0.90 L (1.2-3.4) K/uL Nance # (Auto) 0.98 H (0.11-0.59) K/uL Eos # (Auto) 0.02 (0-0.5) K/uL Baso # (Auto) 0.02 (0-0.2) K/uL Sodium (136-145) mmol/L Potassium (3.5-5.1) mmol/L Chloride (98-107) mmol/L Carbon Dioxide (21-32) mmol/L Anion Gap (3-11) BUN (7-18) mg/dl Creatinine (0.6-1.2) mg/dl Est Cr Clr Drug Dosing Est GFR ( Amer) Est GFR (Non-Af Amer) BUN/Creatinine Ratio (10-20) Glucose (70-99) mg/dl Lactate (0.4-2.0) mmol/L Calcium (8.5-10.1) mg/dl Total Bilirubin (0.2-1) mg/dl AST (15-37) U/L ALT (12-78) U/L Alkaline Phosphatase (45-117) U/L Troponin I (0-0.045) ng/ml Total Protein (6.4-8.2) gm/dl Albumin (3.4-5.0) gm/dl Globulin (2.5-4.0) gm/dl Albumin/Globulin Ratio (0.9-2) Urine Color Urine Appearance (Clear) Urine pH (4.5-7.5) Ur Specific Everetts (1.000-1.030) Urine Protein (Negative) Urine Glucose (UA) (Negative) Urine Ketones (Negative) Urine Blood (Negative) Urine Nitrite (Negative) Urine Bilirubin (Negative) Urine Urobilinogen (Negative) Ur Leukocyte Esterase (Negative) Urine WBC (Auto) (0-5) /hpf Urine RBC (Auto) (0-4) /hpf U Hyaline Cast (Auto) (0-5) /lpf U Epithel Cells (Auto) (0-5) /lpf Urine Bacteria (Auto) (Negative) Nasal Screen MRSA (PCR) (Negative) Influenza Type A Ag (Neg) Influenza Type B Ag (Neg) Medications Administered Current Inpatient Medications Acetaminophen (Tylenol) 650 mg PO Q4H PRN PRN Reason: Pain or Fever Stop: 10/30/19 01:31 Albuterol (Ventolin Hfa) 2 puffs INH Q4H PRN PRN Reason: SOB/WHEEZING Stop: 10/30/19 02:08 Albuterol (Ventolin 0.5% 2.5mg/0.5ml) 2.5 mg NEB Q6R KACEY Stop: 10/30/19 12:59 Baclofen (Baclofen Pain Pump) 1 mcg INT SPINAL CONT KACEY Stop: 10/30/19 02:12 Last Admin: 09/30/19 06:25 Dose: Not Given Documented by: Budesonide (Pulmicort Respules) 0.5 mg NEB BIDR KACEY Stop: 10/30/19 18:59 Calcium Carbonate (Os-Alfredo 500) 1,250 mg PO TID KACEY Stop: 10/30/19 08:59 Last Admin: 09/30/19 08:38 Dose: 1,250 mg Documented by: Enoxaparin Sodium (Lovenox) 30 mg SQ Q24H KACEY Stop: 10/30/19 07:59 Last Admin: 09/30/19 08:36 Dose: 30 mg Documented by: Fluticasone Propionate (Flonase) 1 sprays NA BID KACEY Stop: 10/30/19 08:59 Last Admin: 09/30/19 08:37 Dose: 1 sprays Documented by: Hydrocortisone (Anusol Hc) 25 mg TX HS KACEY Stop: 10/30/19 20:59 Piperacillin Sod/Tazobactam (Sod 3.375 gm/ Dextrose) 115 mls @ 28.75 mls/hr IV Q8H [facility]; Protocol Stop: 10/07/19 01:59 Last Infusion: 09/30/19 06:31 Dose: Infused Documented by: Lactated Ringer's (Lr) 1,000 mls @ 125 mls/hr IV .Q8H KACEY Stop: 09/30/19 17:31 Last Admin: 09/30/19 02:16 Dose: 125 mls/hr Documented by: Vancomycin HCl 1,000 mg/ (Sodium Chloride) 270 mls @ 125 mls/hr IV Q18H [facility] Stop: 10/07/19 19:59 Megestrol Acetate (Megace) 800 mg PO DAILY KACEY Stop: 10/30/19 08:59 Last Admin: 09/30/19 08:35 Dose: 800 mg Documented by: Miscellaneous (Check Scopolamine Patch Placement) 1 ea N/A QS KACEY Stop: 10/30/19 01:31 Last Admin: 09/30/19 08:38 Dose: 1 ea Documented by: Miscellaneous (Remove Transderm-Scop Patch) 1 ea N/A Q3D@0859 [facility] Stop: 10/30/19 08:58 Last Admin: 09/30/19 08:38 Dose: 1 ea Documented by: Miscellaneous Information (Consult) 1 ea N/A UD PRN PRN Reason: Consult Stop: 10/30/19 01:31 Miscellaneous Information (Consult) 1 ea N/A UD PRN PRN Reason: Consult Stop: 10/30/19 01:31 Multivitamins (Multivitamin Tab) 1 tab PO QAM KACEY Stop: 10/30/19 08:59 Last Admin: 09/30/19 08:37 Dose: 1 tab Documented by: Nystatin (Nystatin) 1 appln EXT TID KACEY Stop: 10/30/19 08:59 Last Admin: 09/30/19 08:35 Dose: 1 appln Documented by: Potassium Chloride (Klor-Con M20) 20 meq PO Q2H [facility] Stop: 09/30/19 13:01 Prednisone (Prednisone) 50 mg PO DAILY [facility] Stop: 10/30/19 09:59 Risedronate (Actonel) 35 mg PO Th@0600 [facility] Stop: 11/03/19 05:59 Scopolamine (Transderm-Scop) 1.5 mg TD Q3D@0900 [facility]ACE[facility] Stop: 10/30/19 08:59 Last Admin: 09/30/19 08:37 Dose: 1.5 mg Documented by: Terbinafine HCl (Lamisil) 250 mg PO DAILY KACEY Stop: 10/30/19 08:59 Last Admin: 09/30/19 08:37 Dose: 250 mg Documented by: Vitamin D (Vitamin D3) 1,000 units PO QPM KACEY Stop: 10/30/19 20:59 Vitamin D (Vitamin D3) 400 units PO QAM KACEY Stop: 10/30/19 08:59 Last Admin: 09/30/19 08:38 Dose: 400 units Documented by: Resident Activity Tracking Resident Involvement: Resident Care Provided Care Provided: Adult Hospital Medicine (1) Right lower lobe pneumonia Pneumonia type: due to unspecified organism Qualified Code(s): J18.1 - Lobar pneumonia, unspecified organism
[2019-09-30] MEDS ORDERED: NON-FORMULARY MEDICATION (Lactobacillus Combination No.4 [Probiotic] 3,000 mmu cells) PO SCH (09:00)
[2019-09-30] MEDS: POTASSIUM CHLORIDE 20 MEQ TABCR PO SCH ×3 (10:29→12:51)
[2019-09-30] MEDS: predniSONE 50 MG TAB PO SCH (11:26)
[2019-09-30] MEDS ORDERED: ALBUTEROL 0.5% NEB SOLN 2.5 MG/0.5 ML VIAL NEB SCH (13:00)
[2019-09-30] MEDS: ALBUTEROL 0.083% NEBU SOLN 3 ML VIAL NEB SCH (19:40)
[2019-09-30] MEDS: BUDESONIDE 0.5 MG/2 ML VIAL (PULMICORT) NEB SCH (19:40)
[2019-09-30] MEDS ORDERED: VANCOMYCIN HCL 1,000 MG in SODIUM CHLORIDE 0.9% 250 ML IV SCH (20:00)
[2019-09-30] MEDS: CHOLECALCIFEROL 1,000 UNITS TAB PO SCH (21:21)
[2019-09-30] MEDS: HYDROCORTISONE ACETATE 25 MG SUPP PR SCH (21:21)
[2019-10-01] MEDS: CHECK SCOPOLAMINE PATCH PLACEMENT SCH ×3 (00:03→16:22)
[2019-10-01] MEDS: ALBUTEROL 0.083% NEBU SOLN 3 ML VIAL NEB SCH ×4 (00:35→19:13)
[2019-10-01] MEDS: BACLOFEN PAIN PUMP INT SPINAL SCH (01:34)
[2019-10-01] MEDS: PIPERACILLIN/TAZOBACTAM 3.375 GM in DEXTROSE 5% 100 ML IV SCH ×3 (01:46→18:24)
[2019-10-01] MEDS: BUDESONIDE 0.5 MG/2 ML VIAL (PULMICORT) NEB SCH ×2 (07:15→19:13)
[2019-10-01 07:48] LABS: Basophils # (auto) 0.02 K/uL (0-0.2); Basophils % (auto) 0.1 %; Eosinophils # (auto) 0.04 K/uL (0-0.5); Eosinophils % (auto) 0.3 %; Hematocrit (blood only) 34.4 % (37-47); Hemoglobin 11.3 g/dL (12.0-16.0); Immature Granulocytes # (auto) 0.04 K/uL (0.00-0.02); Immature Granulocytes % (auto) 0.3 %; Lymphocytes # (auto) 1.15 K/uL (1.2-3.4); Lymphocytes % (auto) 7.8 %; Mean Corpuscular Hemoglobin 29.8 pg (25-34); Mean Corpuscular Hgb Conc 32.8 g/dL (32-36); Mean Corpuscular Volume 90.8 fL (80-100); Mean Platelet Volume 9.4 fL (7.4-10.4); Monocytes # (auto) 0.82 K/uL (0.11-0.59); Monocytes % (auto) 5.6 %; Neutrophils # (auto) 12.59 K/uL (1.4-6.5); Neutrophils % (auto) 85.9 %; Platelet Count 291 K/uL (130-400); RDW Coefficient of Variation 17.1 % (11.5-14.5); Red Blood Count 3.79 M/uL (4.2-5.4); White Blood Count 14.66 K/uL (4.8-10.8)
[2019-10-01 08:12] LABS: BUN Creatinine Ratio 32.3 (10-20); Blood Urea Nitrogen 7 mg/dl (7-18); Calcium 9.3 mg/dl (8.5-10.1); Carbon Dioxide 21 mmol/L (21-32); Chloride 112 mmol/L (98-107); Creatinine Clr Calc Pharmacy 229.1 ml/min; Est GFR (African American) > 150.0; Est GFR (Non-African American) 130.3; Glucose 90 mg/dl (70-99); Sodium 141 mmol/L (136-145)
[2019-10-01] MEDS: CALCIUM CARBONATE 1250MG TAB PO SCH ×3 (08:45→20:54)
[2019-10-01] MEDS: predniSONE 50 MG TAB PO SCH (08:45)
[2019-10-01] MEDS: TERBINAFINE HCL 250 MG TAB PO SCH (08:46)
[2019-10-01] MEDS: FLUTICASONE PROPIONATE NA SPR 16 GM BTL SCH ×2 (08:46→20:53)
[2019-10-01] MEDS: CHOLECALCIFEROL (VITAMIN D) 400 UNITS TABLET PO SCH (08:46)
[2019-10-01] MEDS: MULTIVITAMIN TAB PO SCH (08:46)
[2019-10-01] MEDS: MEGESTROL ACETATE 800 MG/20 ML UDP PO SCH (08:47)
[2019-10-01] MEDS: ENOXAPARIN INJ 30 MG/0.3 ML SYR SQ SCH (08:47)
[2019-10-01] MEDS: SCOPOLAMINE 1.5 MG TDSY TD SCH (08:48)
[2019-10-01] MEDS: NYSTATIN CR 15 GM TUBE EXT SCH ×3 (08:49→20:54)
--- NOTE | 2019-10-01 09:32 | Hospitalist Progress Note ---
Date of Service October 01, 2019 Assessment & Plan (1) Right lower lobe pneumonia: 69-year-old female with history of MS on baclofen pump, urinary retentionstraight caths, recurrent UTIs, external hemorrhoids and prior admission in July 2019 for right lower lobe pneumonia presents with worsening shortness of breath and feeling ill for the last few days. Hospital acquired versus aspiration pneumonia - Patient with a history of right lower lobe pneumonia in 2019 presented with worsening shortness of breath feeling ill for the past 3 days. On admission the patient was tachycardic to the 130s and tachypneic on room air. She was afebrile however had a subjective fever at home. White count on admission was 23.8 and lactate was 2.6 EKG obtained that was 131 for heart rate QTC of 419 with a pulmonary disease pattern. Patient was flu negative, blood cultures pending. Given her recent hospitalization for pneumonia she was started on vancomycin and Zosyn out of concern for H CAP. MRSA nasal swab was obtained and was negative. In the emergency department she was given vancomycin and Zosyn as well as 2 L of lactated Ringer's for fluid resuscitation. - Pt continues to be afebrile and leukocytosis trending down. -WBC 23.86 ->21.69 -> 14.66. -Lactate:2.6->0.8. - At this time as MRSA swab negative vanc d/c'ed. - Scheduled albuterol nebulizers every 6 hours. -DC duo nebs as patient wears a scopolamine patch and ipratropium was drying her out. - Scheduled budesonide nebulizer twice daily. - Have d/c'ed steroids as pt is breathing well without wheezes. - Had extensive discussion with the pt today about her options for eating moving forward as she is likely having aspiration events causing pneumonia. Pt would like to meet with palliative care tomorrow with more of her family present to further discuss options for feeding and quality of life moving forward. UTI - Urine has not been smelling bad and color unchanged -usually UTI characteristics. UA: 1+ blood, 1+ leuk esterase greater than 30 WBC, 10-30 RBC no bacteria. Patient's reports she has a chronic UTI with waxing and waning of intensity. - Urine culture pending. - Antibiotics as above. Concern for sepsis - On presentation pt was febrile, tachycardic, with leukocytosis. Overnight fever resolved however still tachycardic and with elevated white count. Doing well at this time, will follow CBC and continue to monitor closely for signs and symptoms of decompensation. - Abx as above - s/p 2 liter fluid resuscitation. - UCx negative, BCx x2 negative to date. Inability To Speak 2/2 to dryness and respiratory secretions - Since becoming ill patient reports she has had an inability to speak secondary to the feeling of dry mucus secretions in her throat she said that this began after receiving nebulizer treatments. Given the fact she is on daily scopolamine the additional muscarinic stimulation from the ipratropium likely resulted in drying her secretions. Will hold ipratropium and hopefully will improve with nebulized steroids. - pt this afternoon with better speech, have encouraged PO hydration as she "feels dry". - Avoid drying agents and additional muscarinic stimulation. Hypokalemia - 09/30 K was 3.2. - Repleted 20 meq po x3 - K 4.0 today. - Trend BMP. MS - Continue home baclofen pump, scopolamine Urinary retention due to MS - Straight cath twice daily and as needed External hemorrhoids - Continue home anusol FEN/GI: heart healthy diet. Code: Full DVT prophylaxis: Lovenox Disposition: MedSurg with telemetry Supervising Physician Co-Signing Physician Notes I personally examined the patient and verified all florentino points of history and exam, discussed case, and agree with decision making with Dr Boudreaux. Seems to be doing better. Still very hoarse and quiet voice, extensive discussion with patient and son about current situation with aspiration. After discussions that she seems to express that she is likely to want to go home and eat as best she can and treat pneumonias when and if they come up. We discussed that prior to making this as a true decision for moving forward we would like her to be able to think about it, sleep on it, and discussed with family further. Vitals noted, in general she is awake and alert pleasant no distress. HEENT n ormocephalic atraumatic mucous membranes moist. Breathing unlabored no accessory muscle use good effort. Skin shows no rashes no pallor or icterus. Recurrent pneumoniaaspiration more likely than healthcare associated but possibility for either. Appreciate speech therapy input, continue current antibiotics, continue ongoing discussions about her aspiration risk and further management there of. Otherwise as above. Subjective Pt without acute events overnight. No shortness of breath however continues to wear the nasal cannula oxygen. Denies shortness of breath, chest pain, palpitations, abdominal pain, fevers or chills. Endorses some difficulty speaking (hoarseness) that she reports gets a bit better with her nasal spray for about an hour before becoming bad again. Feels thirty a lot. Review of Systems Constitutional: + fatigue; no fever and no chills Ear, Nose, Mouth, Throat: + hoarseness Respiratory: no cough, no dyspnea and no wheezing Cardiovascular: no chest pain, no palpitations and no edema Gastrointestinal: no abdominal pain, no nausea, no vomiting, no constipation and no diarrhea/loose stools Genitourinary: no dysuria Physical Exam Constitutional: well developed and + ill appearing ENMT: quiet, speaks in three word burst before words become unintelligible. Respiratory: normal respiratory effort, lungs clear to auscultation Cardiovascular: RRR, no murmur, no edema Gastrointestinal (Abdomen): normal bowel sounds, soft, nontender, no hepatosplenomegaly Skin: no rashes, warm and dry Psychiatric: A+Ox3, euthymic affect Results & Data Vital Signs (Past 12 Hours) Vital Signs Temp Pulse Pulse Resp BP Pulse Ox 10/01/19 07:15 85 18 96 10/01/19 07:14 80 10/01/19 06:37 36.3 C L 81 19 105/68 97 10/01/19 03:57 36.7 C 82 19 99/63 L 97 10/01/19 02:15 98 H 10/01/19 00:37 81 14 98 09/30/19 23:10 36.4 C L 91 H 19 120/82 97 Laboratory Results Laboratory Results - last 24 hr 10/01/19 10/01/19 07:37 07:37 WBC 14.66 H RBC 3.79 L Hgb 11.3 L Hct 34.4 L MCV 90.8 MCH 29.8 MCHC 32.8 RDW Std Deviation 57.0 H RDW Coeff of Ananya 17.1 H Plt Count 291 MPV 9.4 Immature Gran % (Auto) 0.3 Neut % (Auto) 85.9 Lymph % (Auto) 7.8 Bullitt % (Auto) 5.6 Eos % (Auto) 0.3 Baso % (Auto) 0.1 Immature Gran # (Auto) 0.04 H Neut # (Auto) 12.59 H Lymph # (Auto) 1.15 L Bullitt # (Auto) 0.82 H Eos # (Auto) 0.04 Baso # (Auto) 0.02 Sodium 141 Potassium 4.0 D Chloride 112 H Carbon Dioxide 21 Anion Gap 8.0 BUN 7 Creatinine 0.22 L Est Cr Clr Drug Dosing 229.1 Est GFR ( Amer) > 150.0 Est GFR (Non-Af Amer) 130.3 BUN/Creatinine Ratio 32.3 H Glucose 90 Calcium 9.3 Medications Administered Current Medications Acetaminophen (Tylenol) 650 mg PO Q4H PRN PRN Reason: Pain or Fever Stop: 10/30/19 01:31 Albuterol (Ventolin Hfa) 2 puffs INH Q4H PRN PRN Reason: SOB/WHEEZING Stop: 10/30/19 02:08 Albuterol (Ventolin 0.083% 2.5mg/3ml) 2.5 mg NEB Q6R KACEY Stop: 10/30/19 18:59 Last Admin: 10/01/19 13:43 Dose: 2.5 mg Documented by: Baclofen (Baclofen Pain Pump) 1 mcg INT SPINAL CONT KACEY Stop: 10/30/19 02:12 Last Admin: 10/01/19 01:34 Dose: Not Given Documented by: Budesonide (Pulmicort Respules) 0.5 mg NEB BIDR KACEY Stop: 10/30/19 18:59 Last Admin: 10/01/19 07:15 Dose: 0.5 mg Documented by: Calcium Carbonate (Os-Alfredo 500) 1,250 mg PO TID KACEY Stop: 10/30/19 08:59 Last Admin: 10/01/19 14:29 Dose: 1,250 mg Documented by: Enoxaparin Sodium (Lovenox) 30 mg SQ Q24H KACEY Stop: 10/30/19 07:59 Last Admin: 10/01/19 08:47 Dose: 30 mg Documented by: Fluticasone Propionate (Flonase) 1 sprays NA BID KACEY Stop: 10/30/19 08:59 Last Admin: 10/01/19 08:46 Dose: 1 sprays Documented by: Hydrocortisone (Anusol Hc) 25 mg AK HS KACEY Stop: 10/30/19 20:59 Last Admin: 09/30/19 21:21 Dose: 25 mg Documented by: Piperacillin Sod/Tazobactam (Sod 3.375 gm/ Dextrose) 115 mls @ 28.75 mls/hr IV Q8H [facility]; Protocol Stop: 10/07/19 01:59 Last Infusion: 10/01/19 14:14 Dose: Infused Documented by: Megestrol Acetate (Megace) 800 mg PO DAILY [facility] Stop: 10/30/19 08:59 Last Admin: 10/01/19 08:47 Dose: 800 mg Documented by: Miscellaneous (Check Scopolamine Patch Placement) 1 ea N/A QS [facility] Stop: 10/30/19 01:31 Last Admin: 10/01/19 08:47 Dose: 1 ea Documented by: Miscellaneous (Remove Transderm-Scop Patch) 1 ea N/A Q3D@0859 [facility] Stop: 10/30/19 08:58 Last Admin: 09/30/19 08:38 Dose: 1 ea Documented by: Miscellaneous Information (Consult) 1 ea N/A UD PRN PRN Reason: Consult Stop: 10/30/19 01:31 Multivitamins (Multivitamin Tab) 1 tab PO QAM [facility] Stop: 10/30/19 08:59 Last Admin: 10/01/19 08:46 Dose: 1 tab Documented by: Nystatin (Nystatin) 1 appln EXT TID [facility] Stop: 10/30/19 08:59 Last Admin: 10/01/19 14:29 Dose: 1 appln Documented by: Prednisone (Prednisone) 50 mg PO DAILY [facility] Stop: 10/30/19 09:59 Last Admin: 10/01/19 08:45 Dose: 50 mg Documented by: Risedronate (Actonel) 35 mg PO Th@0600 [facility] Stop: 11/03/19 05:59 Scopolamine (Transderm-Scop) 1.5 mg TD Q3D@0900 [facility] Stop: 10/30/19 08:59 Last Admin: 10/01/19 08:48 Dose: 1.5 mg Documented by: Terbinafine HCl (Lamisil) 250 mg PO DAILY [facility] Stop: 10/30/19 08:59 Last Admin: 10/01/19 08:46 Dose: 250 mg Documented by: Vitamin D (Vitamin D3) 1,000 units PO QPM [facility] Stop: 10/30/19 20:59 Last Admin: 09/30/19 21:21 Dose: 1,000 units Documented by: Vitamin D (Vitamin D3) 400 units PO QAM KACEY Stop: 10/30/19 08:59 Last Admin: 10/01/19 08:46 Dose: 400 units Documented by: Resident Activity Tracking Resident Involvement: Resident Care Provided Care Provided: Adult Hospital Medicine (1) Right lower lobe pneumonia Pneumonia type: due to unspecified organism Qualified Code(s): J18.1 - Lobar pneumonia, unspecified organism
--- NOTE | 2019-10-01 19:06 | Billing Data ---
Coding Level of Care Code 71547 Subseq Hosp Care Lvl 3
[2019-10-01] MEDS: HYDROCORTISONE ACETATE 25 MG SUPP PR SCH (20:54)
[2019-10-01] MEDS: CHOLECALCIFEROL 1,000 UNITS TAB PO SCH (20:55)
[2019-10-02] MEDS: CHECK SCOPOLAMINE PATCH PLACEMENT SCH ×3 (00:08→17:07)
[2019-10-02] MEDS: ALBUTEROL 0.083% NEBU SOLN 3 ML VIAL NEB SCH ×4 (01:02→20:06)
[2019-10-02] MEDS: PIPERACILLIN/TAZOBACTAM 3.375 GM in DEXTROSE 5% 100 ML IV SCH ×2 (01:13→09:35)
[2019-10-02] MEDS: BACLOFEN PAIN PUMP INT SPINAL SCH (03:20)
--- NOTE | 2019-10-02 06:54 | Hospitalist Progress Note ---
Date of Service October 02, 2019 Assessment & Plan (1) Right lower lobe pneumonia: 69-year-old female with history of MS on baclofen pump, urinary retentionstraight caths, recurrent UTIs, external hemorrhoids and prior admission in July 2019 for right lower lobe pneumonia presents with worsening shortness of breath and feeling ill for the last few days. Hospital versus community-acquired pneumonia - Pt continues to be afebrile and leukocytosis trending down. -WBC 23.86 ->21.69 -> 14.66 -> 9.59. -Lactate:2.6->0.8. - Currently Augmentin 875 PO BID. - Scheduled budesonide nebulizer twice daily. - Pt would like to meet with GI regarding possible PEG tube. - Consulted Gastro - Dr. Sam accepts over phone. UTI - Urine has not been smelling bad and color unchanged -usually UTI characteristics. UA: 1+ blood, 1+ leuk esterase greater than 30 WBC, 10-30 RBC no bacteria. Patient's reports she has a chronic UTI with waxing and waning of intensity. - Urine cultures negative. - Antibiotics as above. Concern for sepsis - On presentation pt was febrile, tachycardic, with leukocytosis. Overnight fever resolved however still tachycardic and with elevated white count. Doing well at this time, will follow CBC and continue to monitor closely for signs and symptoms of decompensation. - Abx as above . - s/p 2 liter fluid resuscitation. - UCx negative, BCx x2 negative to date. Inability To Speak 2/2 to dryness and respiratory secretions - Pt speaking better today, continue to encourage PO intake. - Avoid drying agents and additional muscarinic stimulation. Hypokalemia - K 3.3 today, repleted. - BMP AM. MS - Continue home baclofen pump, scopolamine. Urinary retention due to MS - Straight cath twice daily and as needed. External hemorrhoids - Continue home anusol. FEN/GI: heart healthy diet Code: Full DVT prophylaxis: Lovenox Disposition: MedSurg with telemetry Supervising Physician Co-Signing Physician Notes I personally examined the patient and verified all florentino points of history and exam, discussed case, and agree with decision making with Dr Boudreaux. time in approx 415p, time out approx 445p 30mins at least face to face, along with a short revisit face to face later, separate from time discussing with palliative and updating GI breathing doing better. extensive discussions with pt and family in regards to decisions and management. case also d/w palliative. pt and family still struggling with options and what will be best for her. discussed situation from nearly every angle of possibility i could conceive of, and answered all questions to the best of my ability Vitals noted, in general she is awake and alert pleasant no distress. HEENT normocephalic atraumatic mucous membranes moist. Breathing unlabored no accessory muscle use good effort. Skin shows no rashes no pallor or icterus. Recurrent pneumoniaaspiration more likely than healthcare associated but possibility for either. can downgrade to PO augmentin. extensive discussions on home/eat as safely as she can and treat events when they come up vs PEG and strict NPO - she's still struggling - as above noted extensive time spent face to face in addition to coordinating care - suspect she's leaning more towards home and eat as safely as she can, but still up in the air. 30mins plus face to face as above noted Subjective Pt without acute events overnight. Now speaking more clearly today, without fevers or chills, no CP, no SOB, no abdominal pain, no diarrhea. Review of Systems Constitutional: no fever and no chills Respiratory: no cough, no dyspnea and no wheezing Cardiovascular: no chest pain, no palpitations and no edema Gastrointestinal: no abdominal pain, no nausea, no vomiting, no constipation and no diarrhea/loose stools Physical Exam Constitutional: WD/WN, vitals as above Respiratory: normal respiratory effort, lungs clear to auscultation Cardiovascular: RRR, no murmur, no edema Gastrointestinal (Abdomen): normal bowel sounds, soft, nontender, no hepatosplenomegaly Skin: no rashes, warm and dry Psychiatric: A+Ox3, euthymic affect Results & Data Vital Signs (Past 12 Hours) Vital Signs Temp Pulse Pulse Pulse Resp BP Pulse Ox 10/02/19 05:37 111 H 10/02/19 02:56 36.3 C L 98 H 20 122/73 95 10/02/19 01:08 100 H 18 96 10/01/19 23:09 36.4 C L 95 H 19 125/76 95 10/01/19 19:23 36.6 C 104 H 17 138/72 95 10/01/19 19:16 102 H 16 98 Resident Activity Tracking Resident Involvement: Resident Care Provided Care Provided: Adult Hospital Medicine (1) Right lower lobe pneumonia Pneumonia type: due to unspecified organism Qualified Code(s): J18.1 - Lobar pneumonia, unspecified organism
[2019-10-02] MEDS: BUDESONIDE 0.5 MG/2 ML VIAL (PULMICORT) NEB SCH ×2 (07:42→20:06)
[2019-10-02 07:50] LABS: Hematocrit (blood only) 33.6 % (37-47); Hemoglobin 10.9 g/dL (12.0-16.0); Mean Corpuscular Hemoglobin 29.8 pg (25-34); Mean Corpuscular Hgb Conc 32.4 g/dL (32-36); Mean Corpuscular Volume 91.8 fL (80-100); Mean Platelet Volume 9.1 fL (7.4-10.4); Platelet Count 302 K/uL (130-400); RDW Coefficient of Variation 16.9 % (11.5-14.5); RDW Standard Deviation 57.2 fL (36.4-46.3); Red Blood Count 3.66 M/uL (4.2-5.4); White Blood Count 9.59 K/uL (4.8-10.8)
[2019-10-02 08:23] LABS: BUN Creatinine Ratio 54.3 (10-20); Blood Urea Nitrogen 11 mg/dl (7-18); Calcium 9.4 mg/dl (8.5-10.1); Carbon Dioxide 25 mmol/L (21-32); Chloride 111 mmol/L (98-107); Est GFR (African American) > 150.0; Est GFR (Non-African American) 132.3; Glucose 100 mg/dl (70-99); Potassium 3.3 mmol/L (3.5-5.1); Sodium 142 mmol/L (136-145)
[2019-10-02] MEDS: NYSTATIN CR 15 GM TUBE EXT SCH ×3 (08:51→22:25)
[2019-10-02] MEDS: CALCIUM CARBONATE 1250MG TAB PO SCH ×3 (08:51→22:25)
[2019-10-02] MEDS: MEGESTROL ACETATE 800 MG/20 ML UDP PO SCH (08:51)
[2019-10-02] MEDS: CHOLECALCIFEROL (VITAMIN D) 400 UNITS TABLET PO SCH (08:51)
[2019-10-02] MEDS: ENOXAPARIN INJ 30 MG/0.3 ML SYR SQ SCH (08:51)
[2019-10-02] MEDS: MULTIVITAMIN TAB PO SCH (08:51)
[2019-10-02] MEDS: TERBINAFINE HCL 250 MG TAB PO SCH (08:52)
[2019-10-02] MEDS: FLUTICASONE PROPIONATE NA SPR 16 GM BTL SCH ×2 (08:52→22:25)
[2019-10-02] MEDS: POTASSIUM CHLORIDE / WTR 10 MEQ/100 ML PLCT IV SCH ×4 (10:18→14:06)
--- NOTE | 2019-10-02 16:41 | Palliative Care Consultation ---
Date of Consultation October 02, 2019 Assessment & Plan (1) Goals of care, counseling/discussion: -69 year old female patient with PMH MS on baclofen pump, urinary retention, recurrent UTIs, external hemorrhoids and prior admission in July 2019 for right lower lobe pneumonia 2/2 aspiration, presented to the hospital with increased SOB. Patient's MS is quite progressed-- requires full care at home, has very little movement of extremities. After hospitalization for aspiration pneumonia in July, patient went home with her and caregivers and reportedly was doing pretty well until recently. Family reports a continued decline in functional status and continued "choking" and aspiration. She is being treated for RLL pneumonia, is improving. Palliative care met with patient and family to discuss goals on previous admission-- we are reconsulted to discuss goals at the family's request. -Met with patient first this morning by herself in room 263. Patient is awake and alert, oriented x4. Weak, strained voice due to progressive weakness with advanced MS. -Returned to patient's room in the afternoon along with patient's Adriel and daughter Anastasia. -Long discussion regarding patient's options: Continue to eat/drink whatever she wants and continue to have aspiration/choking risk vs. modifying diet to pureed with thickened liquids to try and cut down on aspiration risk, continuing to treat pneumonias as appropriate vs. having PEG tube placed. We talked about what each scenario would look like. We also talked about hospice care with all of these scenarios. -Patient does not feel ready to make a decision on PEG tube placement, she would really like to continue eating/drinking, but also validates her family's concerns about recurrent choking, aspiration, pneumonias and hospitalizations. -Patient and family agree to a GI consult, if the physicians deem it appropriate at this time, to discuss the implications of PEG tube and obtain more information. -I also talked about hospice care at length. I believe that this patient's MS is far enough progressed that she would still qualify for hospice even with a feeding tube. Hospice would provide many benefits-- 24/7 resource, keep patient out of hospital, provide abx for comfort when pneumonia occurs, educate family on how to care for patient and what to expect as this disease progresses. Of course, patient must be ready to say that she really does not want to come to hospital any more, and we talked about when that might be the case. -Patient states that she is no longer able to communicate with and enjoy her family, that she would not want her life prolonged in that state. -Talked about code status-- patient to remain a full code at this time per her wishes. Again, she states that when her disease has progressed to the point of not being communicative, she would want to be a DNR. and daughter supportive of her decision. -Plan: patient wants to return home as soon as medically stable. She will continue to think about options for feeding. Obtain GI consult when appropriate to discuss PEG tube further with patient and family. -Palliative care will continue to follow. (2) Pneumonia: Aspiration pneumonia type: unspecified Laterality: bilateral Lung location: lower lobe of lung Pneumonia type: aspiration pneumonia Qualified Code(s): J69.0 - Pneumonitis due to inhalation of food and vomit (3) Aspiration into airway: History of Present Illness Reason for Consultation: Goals of care Requesting Physician: Dr. Gaspar Attending Physician: Todd Gaspar DO History of Present Illness This 69 year old female patient with PMH MS on baclofen pump, urinary retention, recurrent UTIs, external hemorrhoids and prior admission in July 2019 for right lower lobe pneumonia 2/2 aspiration, presented to the hospital with increased SOB. Patient's MS is quite progressed-- requires full care at home, has very little movement of extremities. After hospitalization for aspiration pneumonia in July, patient went home with her and caregivers and reportedly was doing pretty well until recently. Family reports a continued decline in functional status and continued "choking" and aspiration. She is being treated for RLL pneumonia, is improving. Palliative care met with patient and family to discuss goals on previous admission-- we are reconsulted to discuss goals at the family's request. Thank you kindly for this consult. Palliative care team will follow as needed. Allergies Allergy/AdvReac Type Severity Reaction Status Date / Time No Known Allergies Allergy Verified 09/29/19 20:06 Home Medications Home Medications Medication Instructions Recorded Confirmed Type calcium carbonate [Calcium 500] 1 tab PO TID 01/18/19 09/29/19 History cholecalciferol (vitamin D3) 0 tab PO QPM 01/18/19 09/29/19 History [Vitamin D3] multivitamin 1 tab PO QAM 01/18/19 09/29/19 History risedronate [Actonel] 1 tab PO WK 01/18/19 09/29/19 History Ocrevus 300 mg IV .[id number] 07/26/19 09/29/19 History albuterol sulfate [ProAir HFA] 2 puff INHALATION Q4 PRN 07/26/19 09/29/19 History baclofen 0 mcg CONTINUOUS INTRATHECAL 07/26/19 09/29/19 History INFUSION CONTINOUS fluticasone propionate 2 spry NA BID #1 g 07/30/19 09/29/19 Rx hydrocortisone acetate [Anusol-HC] 25 mg IL HS #24 ea 07/30/19 09/29/19 Rx terbinafine HCl 250 mg tablet 250 mg PO DAILY 08/20/19 09/29/19 History albuterol sulfate 0 mg INHALATION TID 09/29/19 09/29/19 History cholecalciferol (vitamin D3) 400 unit PO QAM 09/29/19 09/29/19 History [Vitamin D3] lactobacillus combination no.4 3,000 mmu cells PO QAM 09/29/19 09/29/19 History [Probiotic] megestrol [Megace ES] 10 ml PO DAILY 09/29/19 09/29/19 History nystatin 1 applic TOPICAL TID 09/29/19 09/29/19 History scopolamine base 1 patch TRANSDERMAL UD 09/29/19 09/29/19 History Patient History Medical History DVT prophylaxis External hemorrhoid Goals of care, counseling/discussion Hypernatremia Hypoxia (Acute) Multiple sclerosis UNABLE TO MOVE LE/PARAPESIS 2/2 PROGRESSIVE MULTIPLE SCLEROSIS; LIMITED MOVEMENT IN HANDS/UE Presence of intrathecal pump BACLOFEN Right lower lobe pneumonia (Acute) Sepsis (Acute) Skin lesion of back Spasticity Urinary retention STRAIGHT CATH 2X DAILY Surgical History Cyst LEFT HIP CALCIUM DEPOSIT REMOVAL History of colonoscopy History of tooth extraction S/P insertion of intrathecal pump Family History Other Family history non-contributory Social History Preferred Language: [place] Communication Ability: Impaired Bleach Liquor Maker Required: No Beliefs That Will Affect Care: None marital status: Current Living Situation: Spouse current occupational status: disabled Feels Safe at Home: Yes Safety Concerns: Feels Safe At This Time Smoking Status: Never smoker Second Hand Exposure: No ; Hx Alcohol Use: No Hx Substance Use: No Review of Systems Review of Systems: Const: + generalized weakness ENMT: + dysphagia Resp: No SOB; + moist cough Cardio: No chest pain, + UE edema GI: No abdominal pain, N/V MS: No musculoskeletal pain Neuro: decreased motor function Psych: No anxiety Physical Exam Constitutional: + ill appearing and + physical limitations; no acute distress ENMT: external ear and nose normal, oropharynx normal weak voice Respiratory: normal respiratory effort; no respiratory distress Auscultation: + diminished lung sounds Cardiovascular: Rate/Rhythm: regular rate and regular rhythm Extremities: + edema (generalized) Gastrointestinal (Abdomen): Inspection/Auscultation: normal bowel sounds Percussion/Palpation: abdomen soft; abdomen nontender Neurologic: awake; + does not move all extremities Psychiatric: Orientation: alert and oriented x 3 Insight: good insight Results & Data Vital Signs (Past 12 Hours) Vital Signs Temp Pulse Pulse Resp BP BP Pulse Ox 10/02/19 14:47 36.3 C L 92 H 20 133/78 100 10/02/19 14:15 78 17 94 10/02/19 11:00 36.6 C 92 H 20 120/78 96 10/02/19 07:44 106 H 18 96 10/02/19 07:24 36.8 C 69 18 120/69 97 10/02/19 05:37 111 H PG Care Time/CCT Prolonged Care Time Prolonged Care Time: Yes Total Prolonged Care Time: 100 Time Spent Midlevel 100 minutes with >50% of time spent at bedside with patient and family discussing condition and GOC.
[2019-10-02] MEDS: AMOXICILLIN/CLAVULANATE SUSP 400MG/5ML 50ML BOTTLE PO SCH (17:07)
--- NOTE | 2019-10-02 18:31 | Billing Data ---
Coding Level of Care Code 43392 Subseq Hosp Care Lvl 3
--- NOTE | 2019-10-02 18:32 | Billing Data ---
Coding Level of Care Code 78983 Prolonged Care (int'l)
[2019-10-02] MEDS: CHOLECALCIFEROL 1,000 UNITS TAB PO SCH (22:25)
[2019-10-02] MEDS: HYDROCORTISONE ACETATE 25 MG SUPP PR SCH (22:25)
[2019-10-03] MEDS: CHECK SCOPOLAMINE PATCH PLACEMENT SCH ×3 (01:06→15:58)
[2019-10-03] MEDS: ALBUTEROL 0.083% NEBU SOLN 3 ML VIAL NEB SCH ×3 (01:15→13:45)
[2019-10-03] MEDS: BACLOFEN PAIN PUMP INT SPINAL SCH (02:00)
--- NOTE | 2019-10-03 07:31 | Discharge Summary ---
Date of Service October 03, 2019 Admission HPI Per Admitting Provider 69-year-old female with history of MS on baclofen pump, urinary retentionstraight caths, recurrent UTIs, external hemorrhoids and prior admission in July 2019 for right lower lobe pneumonia presents with worsen ing shortness of breath and feeling ill for the last few days. According to she was doing well since last admission until a few days ago when she became more hypoxic and incoherent. She was using 2 L of oxygen at night but required oxygen all day yesterday. She is having congestion and runny nose which is new for her. No cough, sore throat or otalgia. Today she she had difficulty staying awake and could not hold a conversation. She had a temp of 99.1 today which was unusual for her as she usually runs around 97. She also had chills. She denies any headache/lightheadedness, chest pain, abdominal pain, nausea, vomiting, constipation, diarrhea, hematuria. Her when she gets UTIs she has bad urine order and her urine color changes which has not happened this time. Social history: Social drinker, never smoked Admission Exam Per Admitting Provider General: In NAD, alert and apply to hold a conversation Neuro: A&O x 4 Pulm: Rhonchi appreciated on R anterior and posterior lung robison, L lung robison CTA, equal breath sounds bilaterally CV: RRR, no m/r/g, cap refill < 2 secs Abdomen:+BS, no TTP in all quadrants, non-distended, baclofen pump on R side LE: no LE edema, no calf TTP Principal Diagnosis pneumonia due to aspiration Discharge Exam Constitutional WD/WN, vitals as above Respiratory normal respiratory effort, lungs clear to auscultation with upper airway sounds that pt has difficulty bringing up. Watched pt have difficulty after drinking water from a straw. No difficulty drinking from the cup without straw. Cardiovascular RRR, no murmur, no edema Gastrointestinal (Abdomen) normal bowel sounds, soft, nontender, no hepatosplenomegaly Skin no rashes, warm and dry Psychiatric A+Ox3, euthymic affect Discharge Data Allergies Allergy/AdvReac Type Severity Reaction Status Date / Time No Known Allergies Allergy Verified 09/29/19 20:06 Consultations 09/29/19 20:59 ED Decision to Admit Stat 10/01/19 13:20 Consult Palliative Care Routine 10/02/19 18:02 Consult Gastroenterology Routine Hospital Course (1) Right lower lobe pneumonia: 69-year-old female with history of MS on baclofen pump, urinary retentionstraight caths, recurrent UTIs, external hemorrhoids and prior admission in July 2019 for right lower lobe pneumonia presents with worsening shortness of breath and feeling ill for the last few days. Hospital versus community-acquired pneumonia - Pt continues to be afebrile and leukocytosis trending down. -WBC 23.86 ->21.69 -> 14.66 -> 9.59 -> 7.68. -Lactate:2.6->0.8. - Currently Augmentin 875 PO BID, will continue to complete on 10/06/19. - Sent with duonebs as needed for shortness of breath. - Will continue oxygen therapy at this time. - Have advised to change consistency of diet to pureed foods moving forward, and not to use straws when drinking beverages as the team witnessed her coughing after drinking water from a straw, but had no issues from the cup itself. - Pt will meet with GI in the outpatient setting (Dr. Sam) to discuss possible PEG tube. UTI - Urine has not been smelling bad and color unchanged -usually UTI characteristics. UA: 1+ blood, 1+ leuk esterase greater than 30 WBC, 10-30 RBC no bacteria. Patient's reports she has a chronic UTI with waxing and waning of intensity. - Urine cultures negative. - Antibiotics as above. Concern for sepsis - On presentation pt was febrile, tachycardic, with leukocytosis. All symptoms have resolved at this time. - Abx as above . - UCx and BCx x2 negative this admission. Inability To Speak 2/2 to dryness and respiratory secretions - Pt speaking better today, continue to encourage PO intake. - Avoid drying agents and additional muscarinic stimulation. Hypokalemia - K 3.7 today. MS - Continue home baclofen pump, scopolamine. Urinary retention due to MS - Straight cath twice daily and as needed. External hemorrhoids - Continue home anusol. FEN/GI: heart healthy diet Code: Full DVT prophylaxis: Lovenox Disposition: Home with home health services Total Time Total Time Spent Total Time Spent (In Minutes): <30 Discharge Plan Discharge Items Patient Disposition: Home - Home Health Services Reason For Visit: SEPSIS, PNA Discharge Diagnosis: Pneumonia Activity: Resume your previous activity Non-emergency contact: Primary Care Provider and Hospitalist Call non-emergency contact if: your symptoms worsen and your temperature is above 101 Follow-up/Referrals: Maury Johnston MD [Primary Care Provider] - (Please, follow up with Dr. Johnston. *A nurse from his office is supposed to call you with the appointment details. If you have any questions, call his office at [phone].) Diet: Regular Addtl Attending Provider Instructions: You were admitted to the hospital for a pneumonia, which we started treating you with antibiotics for. With antibiotics and fluids you began to get better. We discussed this admission that it is likely that the reason you got your pneumonia is due to food going down your air pipe and getting stuck in the lung s. We talked about how this is likely to happen again due to your MS if you continue to eat in the same way. You met with GI and palliative care to talk about your wishes for a PEG tube to possibly decrease your number of times pneumonia due to food happens. You decided that at this time you would rather be able to eat, and will instead change the consistency of your foods in order to help decrease your risk of this happening again. We have sent you with many days worth of antibiotics called Augmentin which you will find your instructions for below. 1) To complete your course of antibiotics for this current infection, you will continue to take Augmentin 1 pill twice daily for the next 3 more days. These pills come fairly large but can be cut in half to help make them easier to swallow. The prescription will be for 14 days of treatment, but that's simply so you have it in reserve to be able to jump on treatment with your next event. 2) If you have another aspiration event, where the food goes down the wrong pipe, you can begin taking Augmentin and call your primary care doctor for next steps on how to treat yourself at home. If your primary care doctor feels he needs to admit you to our hospital, he can call for direct admissions. 3) Regarding food consistency, if your foods were a more pureed consistency this would also help decrease your amount of choking events, but not completely. 4) Should you decide to get the PEG tube in the future, you can discuss further with the GI doctor and with your primary care doctor. 5) We have also sent a prescription for duonebs to use as needed for trouble breathing. 6) When drinking fluids moving forward, please do not use straws anymore as they put you at increased risk of getting the fluid into your lungs. A sippy cup would be helpful with this. Pending Studies at Discharge: No Stand-Alone Forms: My [facility], Smoking Cessation Medications and DC Order Prescriptions: New amoxicillin-pot clavulanate [Augmentin] 875-125 mg tablet 1 tab PO BID Qty: 28 RF: 0 ipratropium-albuterol 0.5 mg-3 mg(2.5 mg base)/3 mL solution for nebulization 3 ml INH QID PRN (Reason: wheezing) Qty: 180 RF: 0 Continued terbinafine HCl 250 mg tablet 250 mg PO DAILY RF: 0 multivitamin Tablet 1 tab PO QAM RF: 0 calcium carbonate [Calcium 500] 500 mg calcium (1,250 mg) Tablet 1 tab PO TID RF: 0 cholecalciferol (vitamin D3) [Vitamin D3] 1,000 unit Capsule 0 tab PO QPM RF: 0 risedronate [Actonel] 35 mg Tablet 1 tab PO WK RF: 0 baclofen 2,000 mcg/mL Solution 0 mcg continuous intrathecal infusion CONTINOUS RF: 0 albuterol sulfate [ProAir HFA] 90 mcg/actuation Hfa Aerosol Inhaler 2 puff INHALATION Q4 PRN (Reason: Shortness Of Breath Or Wheezing) RF: 0 Ocrevus 30 mg/mL Solution 300 mg IV .[id number] RF: 0 fluticasone propionate 50 mcg/actuation [place],Suspension 2 spry NA BID Qty: 1 RF: 0 hydrocortisone acetate [Anusol-HC] 25 mg suppository 25 mg ND HS Qty: 24 RF: 0 albuterol sulfate 2.5 mg /3 mL (0.083 %) solution for nebulization 0 mg inhalation TID RF: 0 nystatin 100,000 unit/gram cream 1 applic TOPICAL TID RF: 0 scopolamine base 1 mg over 3 days patch 3 day 1 patch transdermal UD RF: 0 cholecalciferol (vitamin D3) [Vitamin D3] 400 unit Capsule 400 unit PO QAM RF: 0 megestrol [Megace ES] 625 mg/5 mL suspension 10 ml PO DAILY RF: 0 Probiotic 3 billion cell Capsule 3,000 mmu cells PO QAM RF: 0 Discharge Orders: Discharge Order (Routine); Ordered 10/03/19 Ordered By: Todd Gaspar Admission Data Admit Date/Time: 09/29/19 23:04 Attending Provider: Todd Gaspar Admit Provider: Delia Ocampo Primary Care Provider: Maury Johnston. Other Providers: Delia Ocampo ; Inés Mclain ; Katherin Ny Other Interventions: Discharge Summary Assessment (RN) Last Done: 10/03/19 16:47 DC Date/Time DO NOT enter until pt leaves facility: 10/03/19 17:28 Supervising Physician Co-Signing Physician Notes I personally examined the patient and verified all florentino points of history and exam, discussed case, and agree with decision making with Dr Boudreaux. no new issues. when we saw earlier in the day she was awaiting family arrival and then discussions with GI. later nursing informs me that family does not want to wait for GI consult now (despite my having told them yesterday it would be sometime in the afternoon) and would like to take her home and f/u w GI as outpt - informed GI of this and cancelled consult for now given their request as well as that overall pt seemed leaning heavily towards a plan of eating with caution and treating events as they occur and not proceeding with PEG (seemed more that family was in favor of PEG than pt) Vitals noted, in general she is awake and alert pleasant no distress. HEENT normocephalic atraumatic mucous membranes moist. Breathing unlabored no accessory muscle use good effort. Skin shows no rashes no pallor or icterus. Recurrent pneumoniaaspiration more likely than healthcare associated but possibility for either. is safe/stable for home - PO augmentin. as discussed several days - options are basically eating carefully and treating events as they occur vs PEG and strict NPO. pt was ambivalent favoring eating carefully and treating events as they came up, family ambivalent maybe favoring PEG (but pt has capacity to make decisions) -- for now home w careful eating/safe swallow strategies, modified diet. also sent w augmentin and duonebs to use if she has an aspiration event - with the plan being to be able to do that to start treatment kirby, then call PCP for further guidance (office visit, housecall, go to ER, etc) and take her to hospital if she looks in distress otherwise. Resident Activity Tracking Resident Involvement: Resident Care Provided Care Provided: Adult Hospital Medicine
[2019-10-03] MEDS: BUDESONIDE 0.5 MG/2 ML VIAL (PULMICORT) NEB SCH (07:33)
[2019-10-03 08:08] LABS: Hematocrit (blood only) 34.6 % (37-47); Hemoglobin 11.5 g/dL (12.0-16.0); Mean Corpuscular Hemoglobin 30.7 pg (25-34); Mean Corpuscular Hgb Conc 33.2 g/dL (32-36); Mean Corpuscular Volume 92.5 fL (80-100); Mean Platelet Volume 9.2 fL (7.4-10.4); Platelet Count 350 K/uL (130-400); RDW Coefficient of Variation 16.8 % (11.5-14.5); RDW Standard Deviation 57.1 fL (36.4-46.3); Red Blood Count 3.74 M/uL (4.2-5.4); White Blood Count 7.68 K/uL (4.8-10.8)
[2019-10-03] MEDS: NYSTATIN CR 15 GM TUBE EXT SCH ×2 (08:30→13:16)
[2019-10-03] MEDS: FLUTICASONE PROPIONATE NA SPR 16 GM BTL SCH (08:31)
[2019-10-03] MEDS: CALCIUM CARBONATE 1250MG TAB PO SCH ×2 (08:31→13:16)
[2019-10-03] MEDS: ENOXAPARIN INJ 30 MG/0.3 ML SYR SQ SCH (08:31)
[2019-10-03] MEDS: TERBINAFINE HCL 250 MG TAB PO SCH (08:31)
[2019-10-03] MEDS: CHOLECALCIFEROL (VITAMIN D) 400 UNITS TABLET PO SCH (08:31)
[2019-10-03] MEDS: AMOXICILLIN/CLAVULANATE SUSP 400MG/5ML 50ML BOTTLE PO SCH (08:31)
[2019-10-03] MEDS: MEGESTROL ACETATE 800 MG/20 ML UDP PO SCH (08:31)
[2019-10-03] MEDS: MULTIVITAMIN TAB PO SCH (08:31)
[2019-10-03] MEDS: SCOPOLAMINE 1.5 MG TDSY TD SCH (08:32)
[2019-10-03 08:44] LABS: BUN Creatinine Ratio 34.2 (10-20); Blood Urea Nitrogen 7 mg/dl (7-18); Calcium 9.8 mg/dl (8.5-10.1); Carbon Dioxide 26 mmol/L (21-32); Chloride 107 mmol/L (98-107); Creatinine Clr Calc Pharmacy 316.5 ml/min; Est GFR (African American) > 150.0; Est GFR (Non-African American) 136.7; Glucose 81 mg/dl (70-99); Potassium 3.7 mmol/L (3.5-5.1); Sodium 140 mmol/L (136-145)
[2019-10-03 11:09] VITALS: TEMP 98.1
[2019-10-03 14:53] VITALS: O2SAT 97
[2019-10-03 16:49] VITALS: BP 158/91
[2019-10-03] MEDS ORDERED: AMOXICILLIN/CLAVULANATE 875 MG TAB PO SCH (17:00)
[2019-10-03 17:38] VITALS: PULSE 123
--- NOTE | 2019-10-03 18:28 | Billing Data ---
Coding Level of Care Code D/C Day Management <30 mins
[2019-10-04] MEDS ORDERED: RISEDRONATE SODIUM 35 MG TAB PO SCH (06:00)
== END 2019-10-03 17:28 | disposition home health service (06) | DRG 871 ==
LOC: ED 19:12 → 2W 23:04 → SUATTDRO 23:04 → 2W 23:29

== ENCOUNTER 2019-10-10 12:12 | Inpatient (IN) ==
[2019-10-10 13:23] LABS: Basophils # (auto) 0.02 K/uL (0-0.2); Basophils % (auto) 0.2 %; Eosinophils # (auto) 0.15 K/uL (0-0.5); Eosinophils % (auto) 1.3 %; Hemoglobin 13.9 g/dL (12.0-16.0); Immature Granulocytes # (auto) 0.07 K/uL (0.00-0.02); Immature Granulocytes % (auto) 0.6 %; Lymphocytes # (auto) 1.63 K/uL (1.2-3.4); Lymphocytes % (auto) 14.3 %; Mean Corpuscular Hemoglobin 30.5 pg (25-34); Mean Corpuscular Hgb Conc 32.3 g/dL (32-36); Mean Corpuscular Volume 94.5 fL (80-100); Mean Platelet Volume 9.1 fL (7.4-10.4); Monocytes # (auto) 0.74 K/uL (0.11-0.59); Monocytes % (auto) 6.5 %; Neutrophils # (auto) 8.76 K/uL (1.4-6.5); Neutrophils % (auto) 77.1 %; Platelet Count 445 K/uL (130-400); RDW Coefficient of Variation 16.9 % (11.5-14.5); RDW Standard Deviation 57.6 fL (36.4-46.3); Red Blood Count 4.55 M/uL (4.2-5.4); White Blood Count 11.37 K/uL (4.8-10.8)
[2019-10-10 13:41] LABS: Alanine Aminotransferase 19 U/L (12-78); Albumin Level 2.8 gm/dl (3.4-5.0); Aspartate Aminotransferase 10 U/L (15-37); BUN Creatinine Ratio 20.9 (10-20); Blood Urea Nitrogen 9 mg/dl (7-18); Calcium 10.7 mg/dl (8.5-10.1); Carbon Dioxide 31 mmol/L (21-32); Chloride 106 mmol/L (98-107); Est GFR (African American) 121.1; Est GFR (Non-African American) 104.5; Glucose 85 mg/dl (70-99); Lipase 137 U/L (73-393); Magnesium 2.1 mg/dl (1.8-2.4); Potassium 3.8 mmol/L (3.5-5.1); Sodium 142 mmol/L (136-145)
[2019-10-10 13:43] LABS: Albumin Globulin Ratio 0.6 (0.9-2); Alkaline Phosphatase 79 U/L (45-117); Bilirubin,Total 0.3 mg/dl (0.2-1); Total Protein 7.8 gm/dl (6.4-8.2)
--- NOTE | 2019-10-10 13:52 | XRay Report ---
XR chest 1V portable HISTORY: 69 years-old Female ? aspiration acute shortness of breath with aspiration COMPARISON: Chest radiograph 09/29/2019 TECHNIQUE: Portable AP view of the chest FINDINGS: The patient is rotated towards the left. The left lung apex is partially obscured secondary to positi oning of the patient's chin. No pneumothorax, large pleural effusion or overt pulmonary edema. Mild r ight hemidiaphragmatic elevation. Patchy consolidative opacities are noted throughout the right midlu ng and right lung base which have progressively worsened from comparison. Degenerative changes of the shoulders and spine. IMPRESSION: Patchy right midlung and right lung base consolidative opacities are suggestive of pneumo edvin versus aspiration pneumonitis. The above report was generated using voice recognition software. It may contain grammatical, syntax o r spelling errors. Electronically signed by: Jony Suazo M.D. 10/10/2019 1:51 PM
[2019-10-10 14:19] LABS: Appearance Urine Turbid (Clear); Bacteria Urine Automated Negative (Negative); Bilirubin Urine Negative (Negative); Blood Urine 2+ (Negative); Color Urine Yellow; Epithelial Cell Urine Auto 0-5 /lpf (0-5); Glucose Urine UA Negative (Negative); Ketones Urine Negative (Negative); Leukocyte Esterase Urine 2+ (Negative); Nitrite Urine Negative (Negative); RBC Urine Automated >30 /hpf (0-4); Specific Gravity Urine 1.016 (1.000-1.030); Urobilinogen Urine Negative (Negative); WBC Urine Automated >30 /hpf (0-5); pH Urine 8.5 (4.5-7.5)
[2019-10-10 14:35] LABS: Protein Urine Negative (Negative); Sulfosalicylic Acid Urine Negative (Negative)
[2019-10-10] MEDS ORDERED: PIPERACILL/TAZOBAC CONSULT ACTIVE PRN (14:41)
[2019-10-10] MEDS ORDERED: PIPERACILLIN/TAZOBACTAM 3.375 GM/115 ML BAG IV STA (14:41)
--- NOTE | 2019-10-10 14:58 | History & Physical Report ---
Date of Service October 10, 2019 Assessment & Plan (1) Aspiration pneumonia: - Admit to [facility] with tele, request bed close to nursing as she has difficulty signalling, request mouth call button - RLL involvement as seen on CXR - Continue zosyn IV - Check MRSA nasal swab - Consult GI, Dr. Palmer, for feeding tube placement - Place on NSS at 80 ml/hr for maintenance fluids - Allow diet with aspiration precautions and frequent oral care - IV Zofran, Tylenol as needed - Currently saturating in mid 90s on room air - Pulmonary toilet with Mucinex, Tessalon Perles, flutter, incentive spirometry (2) Multiple sclerosis: - Hx of such for >15 years, wheelchair-bound, unable to use upper extremities, requires straight cath 3 times daily, patient is able to void on her own approximately twice per day, bladder scan ordered. - Continue baclofen and scopolamine - Code was discussed with family, full code, will ask palliative care to see pt regarding goals of care. (3) S/P insertion of intrathecal pump: - Continue baclofen pump, follows with Dr. Shukla as outpatient - Dosing to be confirmed by pharmacy (4) Spasticity: - Seconday to MS, continue baclofen as above (5) External hemorrhoid: - Per pt report. (6) DVT prophylaxis: - teds, lovenox subQ 30 mg daily CODE: Full Code Dispo: From home, lives with and has multimedia services manager caregiver, CM to assist with dc planning. History of Present Illness Primary Care Provider: Maury Johnston MD This is a 69 yo F with PMHx of MS on baclofen pump, urinary retention requiring daily straight caths, recurrent UTIs, external hemorrhoids and prior admission about 1 week ago for pneumonia which was likely secondary to aspiration due to MS. Prior to this she was admitted in July 2019 for RLL pneumonia. Today the patient presents for worsening ability to swallow food without choking. She was recently admitted and was allowed to go home with the expectation of having follow-up with GI for feeding tube placement. She has never established with any other GI provider before. Her and caregiver are present at bedside and they report that she is having increased difficulty for the past 5 days with thickened liquids and solid foods. She reports having a rattling cough. Denies sputum production. Denies fevers, sweats or chills. She has been wheelchair- bound for at least 15 years. Patient requires straight cath 3 times per day, and is able to void on her own 2 other times per day at baseline. Allergies Allergy/AdvReac Type Severity Reaction Status Date / Time No Known Allergies Allergy Verified 10/10/19 14:36 Home Medications Home Medications Medication Instructions Recorded Confirmed Type calcium carbonate [Calcium 500] 1 tab PO TID 01/18/19 10/10/19 History multivitamin 1 tab PO QAM 01/18/19 10/10/19 History risedronate [Actonel] 1 tab PO WK 01/18/19 10/10/19 History Ocrevus 300 mg IV .[id number] 07/26/19 10/10/19 History albuterol sulfate [ProAir HFA] 2 puff INHALATION Q4 PRN 07/26/19 10/10/19 History baclofen 0 mcg CONTINUOUS INTRATHECAL 07/26/19 10/10/19 History INFUSION CONTINOUS fluticasone propionate 2 spry NA BID #1 g 07/30/19 10/10/19 Rx hydrocortisone acetate [Anusol-HC] 25 mg NE HS #24 ea 07/30/19 10/10/19 Rx terbinafine HCl 250 mg tablet 250 mg PO DAILY 08/20/19 10/10/19 History Probiotic 3,000 mmu cells PO QAM 09/29/19 10/10/19 History albuterol sulfate 0 mg INHALATION TID 09/29/19 10/10/19 History cholecalciferol (vitamin D3) 400 unit PO QAM 09/29/19 10/10/19 History [Vitamin D3] nystatin 1 applic TOPICAL TID 09/29/19 10/10/19 History scopolamine base 1 patch TRANSDERMAL UD 09/29/19 10/10/19 History ipratropium-albuterol 3 ml INH QID PRN #180 ml 10/03/19 10/10/19 Rx Past Med/Surg History Medical History (Updated 10/10/19 @ 17:45 by Yun Escoto) Aspiration into airway DVT prophylaxis External hemorrhoid Goals of care, counseling/discussion Hemorrhoids Hypernatremia Hypoxia (Acute) Multiple sclerosis UNABLE TO MOVE LE/PARAPESIS 2/2 PROGRESSIVE MULTIPLE SCLEROSIS; LIMITED MOVEMENT IN HANDS/UE Pneumonia (Inactive) Presence of intrathecal pump BACLOFEN Right lower lobe pneumonia (Acute) Sepsis (Acute) Skin lesion of back Spasticity Urinary retention STRAIGHT CATH 2X DAILY Surgical History Cyst LEFT HIP CALCIUM DEPOSIT REMOVAL History of colonoscopy History of tooth extraction S/P insertion of intrathecal pump Family History Other Family history non-contributory Social History Preferred Language: Ukrainian Communication Ability: Impaired Communication Ability Comment: lip reads Auditing Clerk Required: No Beliefs That Will Affect Care: None marital status: Current Living Situation: Spouse current occupational status: disabled Other Information That Helps Us Care for You: No Feels Safe at Home: Yes Safety Concerns: Feels Safe At This Time Smoking Status: Never smoker Second Hand Exposure: No ; Hx Alcohol Use: No Hx Substance Use: No Review of Systems Review of Systems: Constitutional: No fever, sweats or chills Eyes: No diplopia, no worsening or blurred vision ENT: normal hearing, no trouble swallowing Respiratory: + Cough, no sputum, no dyspnea at rest or on exertion Cardiovascular: No chest pain, tightness or palpitations Abdomen: No pain, nausea, vomiting, diarrhea or constipation Musculoskeletal: No joint pain, calf pain, swelling Neurologic: No weakness, numbness/tingling, or balance problems Psychiatric: No anxiety or depression Skin: No rash or itch Physical Exam Physical Exam: General: awake, alert, no apparent distress Head: Normocephalic, atraumatic ENT: PERRL, EOMI, no pharyngeal exudate, mucous membranes moist Chest: +Coarse breath sounds throughout, + crackles, worse in the RLL, on room air, no wheeze Cardiac: Regular rate and rhythm, no murmur, no JVD, normal peripheral pulses, good capillary refill Abdominal: NABS x 4 quadrants, soft, nontender to palpation, no rebound, guarding or tenderness Extremities: +atrophy diffusely, skin intact, no breakdown, no peripheral edema or erythema, calfs nontender to palpation Psych: Normal mood and affect Neuro: AAO x 3, inability to move extremities no motor deficits, speech is clear, no peripheral sensory deficits Results & Data Vital Signs (Past 12 Hours) Vital Signs Temp Pulse Resp BP Pulse Ox 12/04/19 14:07 93 H 25 H 134/81 93 10/10/19 14:00 93 10/10/19 12:16 36.5 C 108 H 16 136/79 92 Code Status & VTE Plan Code Status Full code- discussed with pt and family at bedside. Supervising Physician Co-Signing Physician Notes Patient seen and examined, chart reviewed, case discussed with RASHMI Garcia and I agree with her assessment and plan as documented above. Briefly, patient is a 61-year-old female with advanced MS presenting with recurrent aspiration. Desire for PEG tube placement I agree with the physical exam per HPI Assessment/plan Admit to medical floor. IV hydration IV Zosyn GI consultation for possible PEG tube placement. We will keep patient n.p.o. after midnight in the event that the procedure will happen tomorrow Remainder of plan as above PG Care Time/CCT Total # of Minutes Spent Total Time Spent with Patient: Total time spent is greater than 50% in coordination of care (as documented) at patient's floor/unit and/or counseling patient:
[2019-10-10] MEDS ORDERED: ALBUT/IPRATROP 3MG/0.5MG NEB 3 ML VIAL INH PRN (17:05)
[2019-10-10] MEDS ORDERED: OCRELIZUMAB 300 MG IV SCH (17:05)
[2019-10-10] MEDS ORDERED: ONDANSETRON INJ 2 MG/ML 2 ML VIAL IV PRN (17:05)
--- NOTE | 2019-10-10 17:51 | Emergency Department Note ---
Entered by Yun Escoto acting as a scribe for Todd Correia DO History of Present Illness General Chief complaint: Feeding/PEG Tube Replacement Stated complaint: CAN'T TAKE ANYTHING BY MOUTH, FEEDING TUBE Source: patient and family () Mode of arrival: wheelchair Limitations: no limitations History of Present Illness Provider complaint: Difficulty swallowing Onset (ago): week(s) 1 Location: mouth Radiation: non-radiation Pain Consistency: + other (worsening) Quality: + other (difficulty swallowing) Associated symptoms: + other (Additional symptoms: bleeding hemorrhoids. Denies: abdominal pain, melena, hematochezia, urinary symptoms); no shortness of breath Treatments prior to arrival: none The patient is a 69 year old female with a history of multiple sclerosis and hemorrhoids who presents to the Emergency Room with complaints of increasing difficulty swallowing starting a week ago. The patient reports that she cannot swallow and breathe and has trouble even consume any fluids. Her states that she was discharged from the hospital a week ago and was offered a feeding tube, but the patient did not feel like she needed one at that time. The patient notes that she feel like she needs one now due to her increasing difficulty. She also complains of bleeding hemorrhoids but otherwise denies any shortness of breath, abdominal pain, melena, hematochezia, and urinary symptoms. She indicates that her last bowel movement was this morning. Per , the patient receives infusions for MS every 6 months. Home Medications Home Medications Medication Instructions Recorded Confirmed Type calcium carbonate [Calcium 500] 1 tab PO TID 01/18/19 10/10/19 History multivitamin 1 tab PO QAM 01/18/19 10/10/19 History risedronate [Actonel] 1 tab PO WK 01/18/19 10/10/19 History Ocrevus 300 mg IV .[id number] 07/26/19 10/10/19 History albuterol sulfate [ProAir HFA] 2 puff INHALATION Q4 PRN 07/26/19 10/10/19 History baclofen 0 mcg CONTINUOUS INTRATHECAL 07/26/19 10/10/19 History INFUSION CONTINOUS fluticasone propionate 2 spry NA BID #1 g 07/30/19 10/10/19 Rx hydrocortisone acetate [Anusol-HC] 25 mg IN HS #24 ea 07/30/19 10/10/19 Rx terbinafine HCl 250 mg tablet 250 mg PO DAILY 08/20/19 10/10/19 History Probiotic 3,000 mmu cells PO QAM 09/29/19 10/10/19 History albuterol sulfate 0 mg INHALATION TID 09/29/19 10/10/19 History cholecalciferol (vitamin D3) 400 unit PO QAM 09/29/19 10/10/19 History [Vitamin D3] nystatin 1 applic TOPICAL TID 09/29/19 10/10/19 History scopolamine base 1 patch TRANSDERMAL UD 09/29/19 10/10/19 History ipratropium-albuterol 3 ml INH QID PRN #180 ml 10/03/19 10/10/19 Rx Allergies Allergy/AdvReac Type Severity Reaction Status Date / Time No Known Allergies Allergy Verified 10/10/19 14:36 Past Med/Surg History Medical History (Updated 10/10/19 @ 17:45 by Yun Escoto) Aspiration into airway DVT prophylaxis External hemorrhoid Goals of care, counseling/discussion Hemorrhoids Hypernatremia Hypoxia (Acute) Multiple sclerosis UNABLE TO MOVE LE/PARAPESIS 2/2 PROGRESSIVE MULTIPLE SCLEROSIS; LIMITED MOVEMENT IN HANDS/UE Pneumonia (Inactive) Presence of intrathecal pump BACLOFEN Right lower lobe pneumonia (Acute) Sepsis (Acute) Skin lesion of back Spasticity Urinary retention STRAIGHT CATH 2X DAILY Surgical History Cyst LEFT HIP CALCIUM DEPOSIT REMOVAL History of colonoscopy History of tooth extraction S/P insertion of intrathecal pump Family History Other Family history non-contributory Social History Preferred Language: Greenlandic Communication Ability: Impaired 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 and A total of 10 systems reviewed and were otherwise negative Physical Exam Vital Signs Vital Signs - 24 hr 10/10/19 12:16 10/10/19 14:00 10/10/19 14:07 Temperature 36.5 C Temperature Source Oral Pulse Rate 108 H 93 H Pulse Rate from SpO2 Sensor 92 H Respiratory Rate 16 25 H Blood Pressure 136/79 134/81 Blood Pressure Mean 98 103 Blood Pressure Position Sitting Pulse Oximetry 92 93 93 Oxygen Delivery Method Room Air Room Air Sepsis Recent Fever Within 48 Hours No Sepsis Action Taken by Nursing No Action Required 10/10/19 14:30 10/10/19 15:00 Temperature Temperature Source Pulse Rate 92 H 101 H Pulse Rate from SpO2 Sensor 93 H 101 H Respiratory Rate 26 H 31 H Blood Pressure 129/81 137/94 Blood Pressure Mean 93 119 Blood Pressure Position Pulse Oximetry 93 95 Oxygen Delivery Method Sepsis Recent Fever Within 48 Hours Sepsis Action Taken by Nursing GENERAL: laying in bed, soft voice, no acute distress, non-toxic EYE EXAM: normal conjunctiva, PERRL and EOM's grossly intact OROPHARYNX: no exudate, no erythema, lips, buccal mucosa, and tongue normal and mucous membranes are moist NECK: supple, no nuchal rigidity, no adenopathy, non-tender LUNGS: Diminished at bilateral bases. Normal chest wall mechanics HEART: no murmurs, S1 normal and S2 normal ABDOMEN: abdomen soft, non-tender, normo-active bowel sounds, no masses, no rebound or guarding. BACK: Back is symmetrical on inspection and there is no deformity, no midline tenderness, no CVA tenderness. SKIN: no rashes and no bruising UPPER EXTREMITIES: upper extremities are grossly normal. LOWER EXTREMITIES: No pitting edema. NEURO EXAM: Normal sensorium, no movement in upper or lower extremities at baseline. Course Course ED COURSE: Vital signs were reviewed and showed hypertension. The patients medical record was reviewed The above diagnostic studies were performed and reviewed. ED treatments and interventions as stated above. 1225: The patient was evaluated in room B4B. A complete history and physical examination was performed. 1450: Upon reevaluation, the patient is resting. I discussed my findings with the patient and she understands and agrees with the treatment plan. 1453: I reviewed the patient's case with Dr. Ocampo - Hospitalist, [facility]. Dr. Ocampo will evaluate the patient for further management. Based on the patients age, coexisting illnesses, exam and lab findings the decision to treat as an inpatient was made. The patient remained stable while under my care. The patient will be evaluated for further management. Consultations Consultation #1: I reviewed the patient's case with Dr. Ocampo - Hospitalist, [facility]. Dr. Ocampo will evaluate the patient for further management. Time: 14:53 Administered Medications Discontinued Medications Piperacillin Sod/Tazobactam Sod (Zosyn) 3.375 gm in 115 mls @ 230 mls/hr IV NOW STA Stop: 10/10/19 15:10 Last Infusion: 10/10/19 16:13 Dose: 0 mls/hr Documented by: [id number] Admin: 10/10/19 15:51 Dose: 230 mls/hr Documented by: [id number] Medical Decision Making Differential Diagnosis Differential diagnosis: Etiologies such as infections, reactive airway disease, pneumonia, pneumothorax, COPD, CHF, cardiac ischemia, pulmonary embolism, musculoskeletal, gastrointestinal, as well as others were entertained. Medical Records Attestation: I reviewed the patient's medical records. Home Medications Current Medication List: was personally reviewed by me Laboratory Data Attestation: I reviewed the patient's lab results. Result diagrams: 10/10/19 12:59 10/10/19 12:59 Lab Results 10/10/19 10/10/19 10/10/19 Range/Units 12:59 12:59 14:09 WBC 11.37 H (4.8-10.8) K/uL RBC 4.55 (4.2-5.4) M/uL Hgb 13.9 (12.0-16.0) g/dL Hct 43.0 (37-47) % MCV 94.5 (80-100) fL MCH 30.5 (25-34) pg MCHC 32.3 (32-36) g/dL RDW Std Deviation 57.6 H (36.4-46.3) fL RDW Coeff of Ananya 16.9 H (11.5-14.5) % Plt Count 445 H (130-400) K/uL MPV 9.1 (7.4-10.4) fL Immature Gran % (Auto) 0.6 % Neut % (Auto) 77.1 % Lymph % (Auto) 14.3 % Camp % (Auto) 6.5 % Eos % (Auto) 1.3 % Baso % (Auto) 0.2 % Immature Gran # (Auto) 0.07 H (0.00-0.02) K/uL Neut # (Auto) 8.76 H (1.4-6.5) K/uL Lymph # (Auto) 1.63 (1.2-3.4) K/uL Camp # (Auto) 0.74 H (0.11-0.59) K/uL Eos # (Auto) 0.15 (0-0.5) K/uL Baso # (Auto) 0.02 (0-0.2) K/uL Sodium 142 (136-145) mmol/L Potassium 3.8 (3.5-5.1) mmol/L Chloride 106 (98-107) mmol/L Carbon Dioxide 31 (21-32) mmol/L Anion Gap 5.0 (3-11) BUN 9 (7-18) mg/dl Creatinine 0.43 L (0.6-1.2) mg/dl Est Cr Clr Drug Dosing Not Reportable Est GFR ( Amer) 121.1 Est GFR (Non-Af Amer) 104.5 BUN/Creatinine Ratio 20.9 H (10-20) Glucose 85 (70-99) mg/dl Calcium 10.7 H (8.5-10.1) mg/dl Magnesium 2.1 (1.8-2.4) mg/dl Total Bilirubin 0.3 (0.2-1) mg/dl AST 10 L (15-37) U/L ALT 19 (12-78) U/L Alkaline Phosphatase 79 (45-117) U/L Total Protein 7.8 (6.4-8.2) gm/dl Albumin 2.8 L (3.4-5.0) gm/dl Globulin 5.0 H (2.5-4.0) gm/dl Albumin/Globulin Ratio 0.6 L (0.9-2) Lipase 137 (73-393) U/L Urine Color Yellow Urine Appearance Turbid A (Clear) Urine pH 8.5 H (4.5-7.5) Ur Specific [place] 1.016 (1.000-1.030) Urine Protein Negative (Negative) Urine Glucose (UA) Negative (Negative) Urine Ketones Negative (Negative) Urine Blood 2+ H (Negative) Urine Nitrite Negative (Negative) Urine Bilirubin Negative (Negative) Urine Urobilinogen Negative (Negative) Ur Leukocyte Esterase 2+ H (Negative) Urine WBC (Auto) >30 H (0-5) /hpf Urine RBC (Auto) >30 H (0-4) /hpf U Hyaline Cast (Auto) 1-5 (0-5) /lpf U Epithel Cells (Auto) 0-5 (0-5) /lpf Urine Bacteria (Auto) Negative (Negative) Imaging Data Radiologist's Impression: Radiology results as stated below per my review and the radiologist's interpretation: XR chest 1V portable HISTORY: 69 years-old Female ? aspiration acute shortness of breath with aspir ation COMPARISON: Chest radiograph 09/29/2019 TECHNIQUE: Portable AP view of the chest FINDINGS: The patient is rotated towards the left. The left lung apex is partially obscured secondary to positioning of the patient's chin. No pneumothorax, large pleural effusion or overt pulmonary edema. Mild right hemidiaphragmatic elevation. Patchy consolidative opacities are noted throughout the right midlung and right lung base which have progressively worsened from comparison. Degenerative changes of the shoulders and spine. IMPRESSION: Patchy right midlung and right lung base consolidative opacities are suggestive of pneumonia versus aspiration pneumonitis. The above report was generated using voice recognition software. It may contain grammatical, syntax or spelling errors. Electronically signed by: Jony Suazo M.D. 10/10/2019 1:51 PM Blood Pressure Blood Pressure Findings: Elevated blood pressure Blood Pressure Disposition: further management by hospitalist JULIANNA Narrative Patient is a 69-year-old female with a history of MS that was recently admitted and they recommended a PEG tube but she requested to go home and did not believe that she needed at that time. She presents today as she is choking on all liquids and all food and is unable to eat or drink. She denies any chest pain or shortness of breath. IV was established blood work was obtained and showed mild leukocytosis of 11.3 thousand. No significant anemia. BMP along with LFTs and magnesium was unremarkable. Lipase was normal. UA did have white cells and leukocytes. There is no epithelial cells. Chest x-ray with a right middle lobe infiltrate. Patient was given IV Zosyn which will cover both the urine and the chest to favor secondary to aspiration. Discussed with hospitalist and patient was brought in for aspiration pneumonia, UTI and the inability to swallow. Impression & Plan Aspiration pneumonia, Choking, UTI (urinary tract infection) Discharge Plan Visit Data *Final* Discharge Date/Time: 10/10/19 16:41 Chief Complaint: Feeding/PEG Tube Replacement Stated Complaint: CAN'T TAKE ANYTHING BY MOUTH, FEEDING TUBE ED Provider: Todd Correia Discharge Problem: Aspiration pneumonia, Choking, UTI (urinary tract infection) Patient Disposition: Admitted As Inpatient Discharge Instructions Interventions: ED Discharge Assessment Last Done: 10/10/19 16:41 Discharge Problem: Aspiration pneumonia Qualifiers: Aspiration pneumonia type: unspecified Laterality: right Lung location: lower lobe of lung Qualified Code(s): J69.0 - Pneumonitis due to inhalation of food and vomit Choking Qualifiers: Encounter type: initial encounter Qualified Code(s): T17.308A - Unspecified foreign body in larynx causing other injury, initial encounter UTI (urinary tract infection) Qualifiers: Urinary tract infection type: site unspecified Hematuria presence: with hematuria Qualified Code(s): N39.0 - Urinary tract infection, site not specified The scribe's documentation has been prepared under my direction and personally reviewed by me in its entirety. I confirm that the note above accurately reflects all work, treatment, procedures, and medical decision making performed by me.
[2019-10-10] MEDS ORDERED: ALBUTEROL HFA 8 GM INHALER INH PRN (17:52)
[2019-10-10] MEDS ORDERED: BACLOFEN PAIN PUMP INT SPINAL SCH (18:00)
[2019-10-10] MEDS: SODIUM CHLORIDE 0.9% 1000ML 1,000 ML IV SCH (18:08)
[2019-10-10] MEDS: PATIENT'S HEIGHT AND/OR WEIGHT NEEDED SCH ×3 (18:21→22:05)
[2019-10-10] MEDS: ALBUTEROL 0.083% NEBU SOLN 3 ML VIAL INH SCH (19:07)
[2019-10-10] MEDS: PIPERACILLIN/TAZOBACTAM 3.375 GM in DEXTROSE 5% 100 ML IV SCH (20:20)
[2019-10-10] MEDS: guaiFENesin 600 MG TABCR PO SCH (20:24)
[2019-10-10] MEDS: FLUTICASONE PROPIONATE NA SPR 16 GM BTL SCH (20:24)
[2019-10-10] MEDS: HYDROCORTISONE ACETATE 25 MG SUPP PR SCH (20:24)
[2019-10-10] MEDS: NYSTATIN CR 15 GM TUBE EXT SCH (20:25)
[2019-10-10] MEDS: CALCIUM CARBONATE 1250MG TAB PO SCH (20:26)
[2019-10-10 23:09] LABS: Influenza A virus by PCR Neg for Influ A (Neg); Influenza B virus by PCR Neg for Influ B (Neg)
[2019-10-10] MEDS: CHECK SCOPOLAMINE PATCH PLACEMENT SCH (23:27)
[2019-10-11] MEDS: PIPERACILLIN/TAZOBACTAM 3.375 GM in DEXTROSE 5% 100 ML IV SCH ×3 (05:15→20:00)
[2019-10-11] MEDS ORDERED: RISEDRONATE SODIUM 35 MG TAB PO SCH (06:00)
[2019-10-11] MEDS: SODIUM CHLORIDE 0.9% 1000ML 1,000 ML IV SCH ×2 (06:05→18:39)
[2019-10-11] MEDS: PATIENT'S HEIGHT AND/OR WEIGHT NEEDED SCH ×4 (06:09→09:34)
[2019-10-11 06:30] LABS: Hematocrit (blood only) 37.1 % (37-47); Hemoglobin 11.8 g/dL (12.0-16.0); Mean Corpuscular Hgb Conc 31.8 g/dL (32-36); Mean Corpuscular Volume 94.4 fL (80-100); Mean Platelet Volume 9.1 fL (7.4-10.4); Platelet Count 416 K/uL (130-400); RDW Coefficient of Variation 16.7 % (11.5-14.5); RDW Standard Deviation 57.6 fL (36.4-46.3); Red Blood Count 3.93 M/uL (4.2-5.4)
[2019-10-11 06:57] LABS: Albumin Level 2.5 gm/dl (3.4-5.0); BUN Creatinine Ratio 30.8 (10-20); Calcium 9.7 mg/dl (8.5-10.1); Creatinine Clr Calc Pharmacy 186.7 ml/min; Est GFR (African American) 141.2; Est GFR (Non-African American) 121.8; Potassium 3.3 mmol/L (3.5-5.1)
[2019-10-11 07:00] LABS: Albumin Globulin Ratio 0.6 (0.9-2); Bilirubin,Total 0.3 mg/dl (0.2-1); Globulin 4.1 gm/dl (2.5-4.0); Total Protein 6.6 gm/dl (6.4-8.2)
[2019-10-11] MEDS: ALBUTEROL 0.083% NEBU SOLN 3 ML VIAL INH SCH ×3 (07:28→19:53)
[2019-10-11] MEDS: FLUTICASONE PROPIONATE NA SPR 16 GM BTL SCH ×2 (09:08→20:15)
[2019-10-11] MEDS: LACTOBACILLUS ACIDOPHILUS (FLORANEX) TAB PO SCH (09:09)
[2019-10-11] MEDS: MULTIVITAMIN TAB PO SCH (09:09)
[2019-10-11] MEDS: CHOLECALCIFEROL (VITAMIN D) 400 UNITS TABLET PO SCH (09:10)
[2019-10-11] MEDS: guaiFENesin 600 MG TABCR PO SCH ×2 (09:11→20:16)
[2019-10-11] MEDS: CALCIUM CARBONATE 1250MG TAB PO SCH ×3 (09:13→20:16)
[2019-10-11] MEDS: NYSTATIN CR 15 GM TUBE EXT SCH ×3 (09:14→20:15)
[2019-10-11] MEDS: ENOXAPARIN INJ 30 MG/0.3 ML SYR SQ SCH (09:14)
[2019-10-11] MEDS: SCOPOLAMINE 1.5 MG TDSY TD SCH (09:14)
[2019-10-11] MEDS: TERBINAFINE HCL 250 MG TAB PO SCH (09:15)
[2019-10-11] MEDS: CHECK SCOPOLAMINE PATCH PLACEMENT SCH ×2 (09:15→15:53)
[2019-10-11] MEDS ORDERED: bisacodyL 10 MG SUPP PR STA (11:52)
--- NOTE | 2019-10-11 14:17 | Palliative Care Consultation ---
Date of Consultation October 11, 2019 Assessment & Plan (1) Goals of care, counseling/discussion: -69 year old female patient with PMH MS on baclofen pump, urinary retention, recurrent UTIs, external hemorrhoids and prior admissions in July and September 2019 for recurrent aspiration pneumonia and progression of MS. Patient well-known to palliative care service on multiple admissions. Patient returns to the hospital now because she continues to choke and aspirate and now wants a PEG tube placed. Patient's MS is fairly advanced and she is entering the end-stages of this disease. 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 She has violent choking episodes at home, aspirates frequently. Palliative care is consulted to continue following for support. -I have had extensive conversations with patient, her Adriel, daughter Anastasia and patient's son. We have gone through the implications of a feeding tube and what this entails. We have talked about what life would look like with a feeding tube, and what it would look like without one. We had discussed that feeding tubes in this situation are usually not shown to necessarily prolong a person's life or provide increased comfort, and it will not slow down the progression of her MS. Patient is understanding of all of this, but feels as though she needs to give the PEG tube a try. Patient and family are hoping that the PEG tube will possibly cut down on re-hospitalizations for aspiration pneumonia. They are also hoping it will eliminate patient's violent choking episodes. -Patient is awake, alert and oriented x4 today. her voice is stronger today and easily understood-- patient does tire out as day goes on and sometimes has a very weakened voice. Patient states that she DOES in fact want to have a PEG tube placed. She states she left the hospital last time so she could be home for Thanksgiving, and came back in order to see GI for tube placement. -Code status has been discussed on multiple occasions. Patient would like to remain a full code at this time. -Palliative care will continue to follow. (2) Aspiration pneumonia: Aspiration pneumonia type: unspecified Laterality: right Lung location: lower lobe of lung Qualified Code(s): J69.0 - Pneumonitis due to inhalation of food and vomit (3) Choking: Encounter type: initial encounter Qualified Code(s): T17.308A - Unspecified foreign body in larynx causing other injury, initial encounter (4) Multiple sclerosis: Supervising Physician Co-Signing Physician Notes Chart reviewed, patient seen and examined-patient's at bedside. Patient known to our service from her prior admission Patient with MS and increasing dysphagia-planned for G-tube. PE: Patient awake and alert, no acute distress. HEENT: EOMI, hearing within normal limits CV: Regular rate, no edema Respiratory: Wet cough, diminished breath sounds bilaterally, respirations unlabored Abdomen: Soft, nontender Neuro: Alert and oriented x4, speech slow with mild dysarthria Agree with above note, assessment and plan as per CAROLINA Ludwig-Will continue to follow as needed History of Present Illness Attending Physician: Jose Ren History of Present Illness This 69 year old female patient with PMH MS on baclofen pump, urinary retention, recurrent UTIs, external hemorrhoids and prior admissions in July and September 2019 for recurrent aspiration pneumonia and progression of MS. Patient well-known to palliative care service on multiple admissions. Patient returns to the hospital now because she continues to choke and aspirate and now wants a PEG tube placed. Patient's MS is fairly advanced and she is entering the end-stages of this disease. Patient has quadriparesis and near-paralysis. She has violent choking episodes at home, aspirates frequently. Palliative care is consulted to continue following for support. Thank you kindly for this consult. Palliative care team will follow as needed. Allergies Allergy/AdvReac Type Severity Reaction Status Date / Time No Known Allergies Allergy Verified 10/10/19 14:36 Home Medications Home Medications Medication Instructions Recorded Confirmed Type calcium carbonate [Calcium 500] 1 tab PO TID 01/18/19 10/10/19 History multivitamin 1 tab PO QAM 01/18/19 10/10/19 History risedronate [Actonel] 1 tab PO WK 01/18/19 10/10/19 History Ocrevus 300 mg IV .[id number] 07/26/19 10/10/19 History albuterol sulfate [ProAir HFA] 2 puff INHALATION Q4 PRN 07/26/19 10/10/19 History baclofen 0 mcg CONTINUOUS INTRATHECAL 07/26/19 10/10/19 History INFUSION CONTINOUS fluticasone propionate 2 spry NA BID #1 g 07/30/19 10/10/19 Rx hydrocortisone acetate [Anusol-HC] 25 mg SD HS #24 ea 07/30/19 10/10/19 Rx terbinafine HCl 250 mg tablet 250 mg PO DAILY 08/20/19 10/10/19 History Probiotic 3,000 mmu cells PO QAM 09/29/19 10/10/19 History albuterol sulfate 0 mg INHALATION TID 09/29/19 10/10/19 History cholecalciferol (vitamin D3) 400 unit PO QAM 09/29/19 10/10/19 History [Vitamin D3] nystatin 1 applic TOPICAL TID 09/29/19 10/10/19 History scopolamine base 1 patch TRANSDERMAL UD 09/29/19 10/10/19 History ipratropium-albuterol 3 ml INH QID PRN #180 ml 10/03/19 10/10/19 Rx Patient History Medical History (Updated 10/10/19 @ 17:45 by Yun Escoto) Aspiration into airway DVT prophylaxis External hemorrhoid Goals of care, counseling/discussion Hemorrhoids Hypernatremia Hypoxia (Acute) Multiple sclerosis UNABLE TO MOVE LE/PARAPESIS 2/2 PROGRESSIVE MULTIPLE SCLEROSIS; LIMITED MOVEMENT IN HANDS/UE Pneumonia (Inactive) Presence of intrathecal pump BACLOFEN Right lower lobe pneumonia (Acute) Sepsis (Acute) Skin lesion of back Spasticity Urinary retention STRAIGHT CATH 2X DAILY Surgical History Cyst LEFT HIP CALCIUM DEPOSIT REMOVAL History of colonoscopy History of tooth extraction S/P insertion of intrathecal pump Family History Other Family history non-contributory Social History Preferred Language: Lithuanian Communication Ability: Effective Communication Ability Comment: lip reads [employer] 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 Beliefs That Will Affect Care: None marital status: Current Living Situation: Spouse current occupational status: disabled Other Information That Helps Us Care for You: No Feels Safe at Home: Yes Safety Concerns: Feels Safe At This Time Smoking Status: Never smoker Second Hand Exposure: No ; Hx Alcohol Use: No Hx Substance Use: No Review of Systems Review of Systems: Const: + weakness ENMT: + choking, + dysphagia Resp: No SOB, + moist but very weak cough Cardio: No chest pain, no edema GI: No abdominal pain, N/V MS: + quadriparesis Neuro: No confusion Psych: No anxiety, no depression Physical Exam Constitutional: + ill appearing and + physical limitations; no acute distress ENMT: external ear and nose normal, oropharynx normal Respiratory: normal respiratory effort; no labored breathing Auscultation: + diminished lung sounds Cardiovascular: RRR, no murmur, no edema Gastrointestinal (Abdomen): Inspection/Auscultation: normal bowel sounds Percussion/Palpation: abdomen soft; abdomen nontender Neurologic: awake; not confused quadriparesis, speech is slowed and voice weakened Psychiatric: A+Ox3, euthymic affect Insight: good insight Results & Data Vital Signs (Past 12 Hours) Vital Signs Temp Pulse Resp BP Pulse Ox 10/11/19 13:08 100 H 18 94 10/11/19 11:22 36.8 C 77 18 131/76 95 10/11/19 09:13 36.5 C 74 18 123/75 95 10/11/19 07:30 81 20 98 PG Care Time/CCT Total # of Minutes Spent Total Time Spent with Patient: Total time spent is greater than 50% in coordination of care (as documented) at patient's floor/unit and/or counseling patient: Time Spent Midlevel 70 minutes with >50% of the time spent at bedside with patient discussing goals and plan of care.
--- NOTE | 2019-10-11 16:44 | Consultation Report ---
DATE OF CONSULTATION: 10/11/2019 REASON OF CONSULTATION: Recurrent aspiration and need for gastrostomy feeding tube. HISTORY OF PRESENT ILLNESS: The patient is a 69-year-old female with end-stage multiple sclerosis with quadriplegia and recurrent bouts of aspiration. The patient has wrestled for some time about whether or not to proceed with a gastrostomy tube and has finally decided to go ahead and proceed given multiple recurrent episodes of aspiration recently. The patient has not had any abdominal surgery and there is no blood thinners on board. I did converse with the patient and her that the patient herself seems to be coherent and agrees to proceeding with the tube placement. They are aware that this will only reduce the risk for aspiration, not eliminate it completely as she will still need to swallow her saliva. PAST MEDICAL HISTORY: Remarkable for multiple sclerosis and recurrent episodes of aspiration pneumonia. She has spasticity and urinary retention. She has an intrathecal pump for baclofen. FAMILY HISTORY: Noncontributory. SOCIAL HISTORY: The patient is . They live in [place], [place], but are followed by Dr. Ndiaye local neurologist and Dr. Davis the urologist. She has never smoked. Does not drink any alcohol. REVIEW OF SYSTEMS: Positive for cough and difficulty swallowing. PHYSICAL EXAMINATION: GENERAL: The patient is quadriplegic and has dysarthric speech. VITAL SIGNS: Blood pressure is 134/81, pulse 93 and regular. ABDOMEN: Soft. There are no scars, no masses. IMPRESSION: The patient has end-stage multiple sclerosis with recurrent aspiration and is agreeable to proceed with a gastrostomy feeding tube with the idea that it will reduce, but not eliminate the risk of her aspirating. I plan on proceeding with PEG tube placement tomorrow. We will give her some IV cefazolin for skin prophylaxis prior to the procedure.
[2019-10-11] MEDS: HYDROCORTISONE ACETATE 25 MG SUPP PR SCH (20:16)
--- NOTE | 2019-10-11 21:53 | Hospitalist Progress Note ---
Date of Service October 11, 2019 Assessment & Plan (1) Aspiration pneumonia: - Admit to [facility] with tele, request bed close to nursing as she has difficulty signalling, request mouth call button - RLL involvement as seen on CXR - Continue zosyn IV - Check MRSA nasal swab - Consult GI, Dr. Palmer, for feeding tube placement - Place on NSS at 80 ml/hr for maintenance fluids - Allow diet with aspiration precautions and frequent oral care - IV Zofran, Tylenol as needed - Pulmonary toilet with Mucinex, Tessalon Perles, flutter, incentive spirometry -Plan is for ppeg tube in AM. -will continue to monitor for now. (2) Multiple sclerosis: - Hx of such for >15 years, wheelchair-bound, unable to use upper extremities, requires straight cath 3 times daily, patient is able to void on her own approximately twice per day, bladder scan ordered. - Continue baclofen and scopolamine - Code was discussed with family, full code, appreciate palliative care input regarding goals of care. (3) S/P insertion of intrathecal pump: - Continue baclofen pump, follows with Dr. Shukla as outpatient - Dosing to be confirmed by pharmacy (4) Spasticity: - Seconday to MS, continue baclofen as above (5) External hemorrhoid: - Per pt report. (6) DVT prophylaxis: - teds, lovenox subQ 30 mg daily CODE: Full Code Dispo: From home, lives with and has timekeeper caregiver, CM to assist with dc planning. D/W palliative care team as well Subjective Patient reports she is agreeable to peg tube. She has no other complaints at this time. Nurse discussed with me that her urethra very erythematous and patient was not tolerating self cath at this time. Will place collins while patient is in hospital . Review of Systems Review of Systems: Constitutional: No fever, sweats or chills Eyes: No diplopia, no worsening or blurred vision ENT: normal hearing, no trouble swallowing Respiratory: + Cough, no sputum, no dyspnea at rest or on exertion Cardiovascular: No chest pain, tightness or palpitations Abdomen: No pain, nausea, vomiting, diarrhea or constipation Musculoskeletal: No joint pain, calf pain, swelling Neurologic: No weakness, numbness/tingling, or balance problems Psychiatric: No anxiety or depression Skin: No rash or itch Physical Exam Physical Exam: General: awake, alert, no apparent distress Head: Normocephalic, atraumatic ENT: PERRL, EOMI, no pharyngeal exudate, mucous membranes moist Chest: +Coarse breath sounds throughout, no wheeze Cardiac: Regular rate and rhythm, no murmur, no JVD, normal peripheral pulses, good capillary refill Abdominal: NABS x 4 quadrants, soft, nontender to palpation, no rebound, guarding or tenderness Extremities: +atrophy diffusely, skin intact, no breakdown, no peripheral edema or erythema, calfs nontender to palpation Psych: Normal mood and affect Neuro: AAO x 3, inability to move extremities no motor deficits, speech is somewhat clear, no peripheral sensory deficits Results & Data Vital Signs (Past 12 Hours) Vital Signs Temp Pulse Pulse Resp BP Pulse Ox 10/11/19 19:53 93 H 18 95 10/11/19 19:31 36.6 C 93 H 20 157/80 H 94 10/11/19 16:26 103 H 10/11/19 15:32 36.4 C L 101 H 20 142/88 H 92 10/11/19 13:08 100 H 18 94 10/11/19 11:22 36.8 C 77 18 131/76 95 PG Care Time/CCT Total # of Minutes Spent Total Time Spent with Patient: Total time spent is greater than 50% in coordination of care (as documented) at patient's floor/unit and/or counseling patient:
[2019-10-12] MEDS: CHECK SCOPOLAMINE PATCH PLACEMENT SCH ×3 (01:06→16:09)
[2019-10-12] MEDS: PIPERACILLIN/TAZOBACTAM 3.375 GM in DEXTROSE 5% 100 ML IV SCH ×3 (04:19→20:08)
[2019-10-12] MEDS: SODIUM CHLORIDE 0.9% 1000ML 1,000 ML IV SCH ×2 (05:33→22:26)
[2019-10-12] MEDS ORDERED: CEFAZOLIN 1000MG 1,000 MG/7.5 ML SYR IV SCH (06:00)
[2019-10-12] MEDS: ALBUTEROL 0.083% NEBU SOLN 3 ML VIAL INH SCH ×3 (06:56→19:44)
[2019-10-12 07:26] LABS: Hematocrit (blood only) 34.8 % (37-47); Hemoglobin 11.1 g/dL (12.0-16.0); Mean Corpuscular Hemoglobin 29.4 pg (25-34); Mean Corpuscular Hgb Conc 31.9 g/dL (32-36); Mean Corpuscular Volume 92.3 fL (80-100); Mean Platelet Volume 9.2 fL (7.4-10.4); Platelet Count 345 K/uL (130-400); RDW Coefficient of Variation 16.6 % (11.5-14.5); RDW Standard Deviation 55.5 fL (36.4-46.3); Red Blood Count 3.77 M/uL (4.2-5.4); White Blood Count 10.76 K/uL (4.8-10.8)
[2019-10-12 08:05] LABS: Albumin Level 2.3 gm/dl (3.4-5.0); BUN Creatinine Ratio 18.1 (10-20); Calcium 9.2 mg/dl (8.5-10.1); Est GFR (African American) 139.5; Est GFR (Non-African American) 120.3; Potassium 3.3 mmol/L (3.5-5.1)
[2019-10-12 08:07] LABS: Albumin Globulin Ratio 0.5 (0.9-2); Bilirubin,Total 0.4 mg/dl (0.2-1); Globulin 4.3 gm/dl (2.5-4.0); Total Protein 6.6 gm/dl (6.4-8.2)
[2019-10-12] MEDS: FLUTICASONE PROPIONATE NA SPR 16 GM BTL SCH ×2 (09:49→20:14)
[2019-10-12] MEDS: ENOXAPARIN INJ 30 MG/0.3 ML SYR SQ SCH (09:49)
[2019-10-12] MEDS: NYSTATIN CR 15 GM TUBE EXT SCH ×3 (09:50→20:14)
[2019-10-12] MEDS: guaiFENesin 600 MG TABCR PO SCH ×2 (09:50→20:13)
[2019-10-12] MEDS: LACTOBACILLUS ACIDOPHILUS (FLORANEX) TAB PO SCH (10:57)
[2019-10-12] MEDS: MULTIVITAMIN TAB PO SCH (10:57)
[2019-10-12] MEDS: CHOLECALCIFEROL (VITAMIN D) 400 UNITS TABLET PO SCH (10:57)
[2019-10-12] MEDS: CALCIUM CARBONATE 1250MG TAB PO SCH ×3 (10:57→20:13)
--- NOTE | 2019-10-12 12:11 | History & Physical Report ---
Date of Service October 12, 2019 History of Present Illness Primary Care Provider: Maury Johnston MD Allergies Allergy/AdvReac Type Severity Reaction Status Date / Time No Known Allergies Allergy Verified 10/10/19 14:36 Home Medications Home Medications Medication Instructions Recorded Confirmed Type calcium carbonate [Calcium 500] 1 tab PO TID 01/18/19 10/10/19 History multivitamin 1 tab PO QAM 01/18/19 10/10/19 History risedronate [Actonel] 1 tab PO WK 01/18/19 10/10/19 History Ocrevus 300 mg IV .[id number] 07/26/19 10/10/19 History albuterol sulfate [ProAir HFA] 2 puff INHALATION Q4 PRN 07/26/19 10/10/19 History baclofen 0 mcg CONTINUOUS INTRATHECAL 07/26/19 10/10/19 History INFUSION CONTINOUS fluticasone propionate 2 spry NA BID #1 g 07/30/19 10/10/19 Rx hydrocortisone acetate [Anusol-HC] 25 mg GA HS #24 ea 07/30/19 10/10/19 Rx terbinafine HCl 250 mg tablet 250 mg PO DAILY 08/20/19 10/10/19 History Probiotic 3,000 mmu cells PO QAM 09/29/19 10/10/19 History albuterol sulfate 0 mg INHALATION TID 09/29/19 10/10/19 History cholecalciferol (vitamin D3) 400 unit PO QAM 09/29/19 10/10/19 History [Vitamin D3] nystatin 1 applic TOPICAL TID 09/29/19 10/10/19 History scopolamine base 1 patch TRANSDERMAL UD 09/29/19 10/10/19 History ipratropium-albuterol 3 ml INH QID PRN #180 ml 10/03/19 10/10/19 Rx Past Med/Surg History Medical History (Updated 10/10/19 @ 17:45 by Yun Escoto) Aspiration into airway DVT prophylaxis External hemorrhoid Goals of care, counseling/discussion Hemorrhoids Hypernatremia Hypoxia (Acute) Multiple sclerosis UNABLE TO MOVE LE/PARAPESIS 2/2 PROGRESSIVE MULTIPLE SCLEROSIS; LIMITED MOVEMENT IN HANDS/UE Pneumonia (Inactive) Presence of intrathecal pump BACLOFEN Right lower lobe pneumonia (Acute) Sepsis (Acute) Skin lesion of back Spasticity Urinary retention STRAIGHT CATH 2X DAILY Surgical History Cyst LEFT HIP CALCIUM DEPOSIT REMOVAL History of colonoscopy History of tooth extraction S/P insertion of intrathecal pump Family History Other Family history non-contributory Social History Preferred Language: Pakistani Communication Ability: Effective Communication Ability Comment: lip reads 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 Beliefs That Will Affect Care: None marital status: Current Living Situation: Spouse current occupational status: disabled Other Information That Helps Us Care for You: No Feels Safe at Home: Yes Safety Concerns: Feels Safe At This Time Smoking Status: Never smoker Second Hand Exposure: No ; Hx Alcohol Use: No Hx Substance Use: No Physical Exam Neurologic: quadriplegic Results & Data Vital Signs (Past 12 Hours) Vital Signs Temp Pulse Resp BP BP Pulse Ox 10/12/19 11:41 36.5 C 77 16 136/90 97 10/12/19 11:32 36.6 C 79 16 137/80 97 10/12/19 07:17 36.6 C 86 16 128/69 96 10/12/19 06:58 81 20 98 10/12/19 04:30 36.5 C 86 20 139/77 94 Code Status & VTE Plan VTE Prophylaxis Plan VTE Prophylaxis will be ordered: Yes
--- NOTE | 2019-10-12 12:11 | History & Physical Report ---
Date of Service October 12, 2019 History of Present Illness Chief Complaint: MS Primary Care Provider: Maury Johnston MD For EGD with PEG Allergies Allergy/AdvReac Type Severity Reaction Status Date / Time No Known Allergies Allergy Verified 10/10/19 14:36 Home Medications Home Medications Medication Instructions Recorded Confirmed Type calcium carbonate [Calcium 500] 1 tab PO TID 01/18/19 10/10/19 History multivitamin 1 tab PO QAM 01/18/19 10/10/19 History risedronate [Actonel] 1 tab PO WK 01/18/19 10/10/19 History Ocrevus 300 mg IV .[id number] 07/26/19 10/10/19 History albuterol sulfate [ProAir HFA] 2 puff INHALATION Q4 PRN 07/26/19 10/10/19 History baclofen 0 mcg CONTINUOUS INTRATHECAL 07/26/19 10/10/19 History INFUSION CONTINOUS fluticasone propionate 2 spry NA BID #1 g 07/30/19 10/10/19 Rx hydrocortisone acetate [Anusol-HC] [address] HS #24 ea 07/30/19 10/10/19 Rx terbinafine HCl 250 mg tablet 250 mg PO DAILY 08/20/19 10/10/19 History Probiotic 3,000 mmu cells PO QAM 09/29/19 10/10/19 History albuterol sulfate 0 mg INHALATION TID 09/29/19 10/10/19 History cholecalciferol (vitamin D3) 400 unit PO QAM 09/29/19 10/10/19 History [Vitamin D3] nystatin 1 applic TOPICAL TID 09/29/19 10/10/19 History scopolamine base 1 patch TRANSDERMAL UD 09/29/19 10/10/19 History ipratropium-albuterol 3 ml INH QID PRN #180 ml 10/03/19 10/10/19 Rx Past Med/Surg History Medical History (Updated 10/10/19 @ 17:45 by Yun Escoto) Aspiration into airway DVT prophylaxis External hemorrhoid Goals of care, counseling/discussion Hemorrhoids Hypernatremia Hypoxia (Acute) Multiple sclerosis UNABLE TO MOVE LE/PARAPESIS 2/2 PROGRESSIVE MULTIPLE SCLEROSIS; LIMITED MOVEMENT IN HANDS/UE Pneumonia (Inactive) Presence of intrathecal pump BACLOFEN Right lower lobe pneumonia (Acute) Sepsis (Acute) Skin lesion of back Spasticity Urinary retention STRAIGHT CATH 2X DAILY Surgical History Cyst LEFT HIP CALCIUM DEPOSIT REMOVAL History of colonoscopy History of tooth extraction S/P insertion of intrathecal pump Family History Other Family history non-contributory Social History Preferred Language: Belarusian Communication Ability: Effective Communication Ability Comment: lip reads 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 Beliefs That Will Affect Care: None marital status: Current Living Situation: Spouse current occupational status: disabled Other Information That Helps Us Care for You: No Feels Safe at Home: Yes Safety Concerns: Feels Safe At This Time Smoking Status: Never smoker Second Hand Exposure: No ; Hx Alcohol Use: No Hx Substance Use: No Physical Exam Constitutional: + thin and + frail appearing Respiratory: Auscultation: + crackles Cardiovascular: Rate/Rhythm: regular rate and regular rhythm Gastrointestinal (Abdomen): Percussion/Palpation: abdomen soft Results & Data Vital Signs (Past 12 Hours) Vital Signs Temp Pulse Resp BP BP Pulse Ox 10/12/19 11:41 36.5 C 77 16 136/90 97 10/12/19 11:32 36.6 C 79 16 137/80 97 10/12/19 07:17 36.6 C 86 16 128/69 96 10/12/19 06:58 81 20 98 10/12/19 04:30 36.5 C 86 20 139/77 94 Code Status & VTE Plan VTE Prophylaxis Plan VTE Prophylaxis will be ordered: Yes
[2019-10-12] MEDS ORDERED: ePHEDrine sulfate 50 MG/ML AMP IV PRN (12:22)
[2019-10-12] MEDS ORDERED: ATROPINE SULFATE 0.1 MG/ML 10ML SYR IV PRN (12:22)
--- NOTE | 2019-10-12 12:22 | Anesthesiology Consultation ---
Date of Service October 12, 2019 Assessment & Plan Chart Review Chart Review: Acceptable Risk for Surgery and Patient NOT seen in Pre Admission Testing Consults Requested none History Surgery Operation Date: 10/12/19 17:00 Proposed Procedures p EGD with Peg Tube Placement Dr Flaco Sam Height/Weight Height: 5 ft 6 in Weight: 62.3 kg Allergies Allergy/AdvReac Type Severity Reaction Status Date / Time No Known Allergies Allergy Verified 10/10/19 14:36 Medications Home Medications Medication Instructions Recorded Confirmed Last Taken calcium carbonate [Calcium 500] 1 tab PO TID 01/18/19 10/10/19 10/10/19 multivitamin 1 tab PO QAM 01/18/19 10/10/19 10/10/19 risedronate [Actonel] 1 tab PO WK 01/18/19 10/10/19 10/04/19 Ocrevus 300 mg IV .[id number] 07/26/19 10/10/19 Unknown albuterol sulfate [ProAir HFA] 2 puff INHALATION Q4 PRN 07/26/19 10/10/19 10/10/19 baclofen 0 mcg CONTINUOUS INTRATHECAL 07/26/19 10/10/19 10/10/19 INFUSION CONTINOUS fluticasone propionate 2 spry NA BID #1 g 07/30/19 10/10/19 10/10/19 hydrocortisone acetate [Anusol-HC] 25 mg [place] HS #24 ea 07/30/19 10/10/19 09/28/19 terbinafine HCl 250 mg tablet 250 mg PO DAILY 08/20/19 10/10/19 10/09/19 Probiotic 3,000 mmu cells PO QAM 09/29/19 10/10/19 10/10/19 albuterol sulfate 0 mg INHALATION TID 09/29/19 10/10/19 09/29/19 cholecalciferol (vitamin D3) 400 unit PO QAM 09/29/19 10/10/19 10/10/19 [Vitamin D3] nystatin 1 applic TOPICAL TID 09/29/19 10/10/19 09/29/19 scopolamine base 1 patch TRANSDERMAL UD 09/29/19 10/10/19 10/10/19 ipratropium-albuterol 3 ml INH QID PRN #180 ml 10/03/19 10/10/19 Unknown Active Medications Generic Name Dose Route Start Last Admin Trade Name Freq PRN Reason Stop Dose Admin Albuterol 2.5 mg 10/10/19 19:00 10/12/19 06:56 Ventolin 0.083% 2.5mg/3ml INH 11/09/19 18:59 2.5 mg TIDR KACEY Administration Calcium Carbonate 500 mg 10/10/19 21:00 10/12/19 10:57 Os-Alfredo 500 PO 11/09/19 20:59 Not Given TID KACEY Enoxaparin Sodium 30 mg 10/11/19 09:00 10/12/19 09:49 Lovenox SQ 11/10/19 08:59 30 mg QAM KACEY Administration Fluticasone Propionate 2 sprays 10/10/19 21:00 10/12/19 09:49 Flonase NA 11/09/19 20:59 2 sprays BID KACEY Administration Guaifenesin 1,200 mg 10/10/19 21:00 10/12/19 09:50 Mucinex PO 11/09/19 20:59 Not Given Q12 KACEY Hydrocortisone 25 mg 10/10/19 21:00 10/11/19 20:16 Anusol Hc WI 11/09/19 20:59 25 mg HS KACEY Administration Sodium Chloride 1,000 mls @ 80 mls/hr 10/10/19 17:05 10/12/19 11:12 Nss 1000ml IV 11/09/19 17:04 0 mls/hr .[id number] KACEY Infusion Piperacillin Sod/Tazobactam 115 mls @ 28.75 mls/hr 10/10/19 20:00 10/12/19 08:19 Sod 3.375 gm/ Dextrose IV 10/17/19 19:59 Infused Q8H KACEY Infusion Protocol Lactobacillus Acidophilus 4 tab 10/11/19 09:00 10/12/19 10:57 Floranex PO 11/10/19 08:59 Not Given QAM KACEY Miscellaneous 1 ea 10/11/19 00:00 10/12/19 08:48 Check Scopolamine Patch Placement N/A 11/10/19 00:00 1 ea QS KACEY Administration Miscellaneous 1 ea 10/11/19 08:59 10/11/19 09:15 Remove Transderm-Scop Patch N/A 11/10/19 08:58 1 ea Q72H KACEY Administration Multivitamins 1 tab 10/11/19 09:00 10/12/19 10:57 Multivitamin Tab PO 11/10/19 08:59 Not Given QAM KACEY Nystatin 1 appln 10/10/19 21:00 10/12/19 09:50 Nystatin EXT 11/09/19 20:59 Not Given TID KACEY Risedronate 35 mg 10/11/19 06:00 10/11/19 06:09 Actonel PO 11/10/19 05:59 35 mg Th@0600 KACEY Administration Scopolamine 1.5 mg 10/11/19 09:00 10/11/19 09:14 Transderm-Scop TD 11/10/19 08:59 1.5 mg Q3D KACEY Administration Terbinafine HCl 250 mg 10/11/19 09:00 10/11/19 09:15 Lamisil PO 11/10/19 08:59 250 mg DAILY KACEY Administration Vitamin D 400 units 10/11/19 09:00 10/12/19 10:57 Vitamin D3 PO 11/10/19 08:59 Not Given QAM KACEY NPO Date Last Intake of Fluids: 10/11/19 Time Last Intake of Fluids: 12:00 Date Last Intake of Solids: 10/11/19 Time Last Intake of Solids: 12:00 Past Medical History Medical History Aspiration into airway DVT prophylaxis External hemorrhoid Goals of care, counseling/discussion Hemorrhoids Hypernatremia Hypoxia (Acute) Multiple sclerosis UNABLE TO MOVE LE/PARAPESIS 2/2 PROGRESSIVE MULTIPLE SCLEROSIS; LIMITED MOVEMENT IN HANDS/UE Pneumonia (Inactive) Presence of intrathecal pump BACLOFEN Right lower lobe pneumonia (Acute) Sepsis (Acute) Skin lesion of back Spasticity Urinary retention STRAIGHT CATH 2X DAILY Past Family History Family History Other Family history non-contributory Past Surgical History Surgical History Cyst LEFT HIP CALCIUM DEPOSIT REMOVAL History of colonoscopy History of tooth extraction S/P insertion of intrathecal pump Social History Smoking Status: Never smoker Hx Alcohol Use: No Alcohol type: wine alcohol intake frequency: a few times a month Hx Substance Use: No substance use type: does not use Physical Exam Vital Signs Last Vital Signs Temp 36.5 C 10/12/19 11:41 Pulse 77 10/12/19 11:41 Resp 16 10/12/19 11:41 BP 136/90 10/12/19 11:41 Pulse Ox 97 10/12/19 11:41 Testing Laboratory Results 10/12/19 07:11 10/12/19 07:11 Urine Color Yellow 10/10/19 14:09 Urine Appearance Turbid (Clear) A 10/10/19 14:09 Urine pH 8.5 (4.5-7.5) H 10/10/19 14:09 Ur Specific [place] 1.016 (1.000-1.030) 10/10/19 14:09 Urine Protein Negative (Negative) 10/10/19 14:09 Urine Glucose (UA) Negative (Negative) 10/10/19 14:09 Urine Ketones Negative (Negative) 10/10/19 14:09 Urine Nitrite Negative (Negative) 10/10/19 14:09 Ur Leukocyte Esterase 2+ (Negative) H 10/10/19 14:09 Urine WBC (Auto) >30 /hpf (0-5) H 10/10/19 14:09 Urine RBC (Auto) >30 /hpf (0-4) H 10/10/19 14:09 U Hyaline Cast (Auto) 1-5 /lpf (0-5) 10/10/19 14:09 U Epithel Cells (Auto) 0-5 /lpf (0-5) 10/10/19 14:09 Urine Bacteria (Auto) Negative (Negative) 10/10/19 14:09 10/10/19 14:09 Urine Culture - Preliminary Urine,Straight Cath Pin-point growth present, reincubating.
[2019-10-12] MEDS ORDERED: KETAMINE HCL INJ 50 MG/ML 10 ML VIAL ONE (12:39)
[2019-10-12] MEDS ORDERED: LIDOCAINE HCL 2% 2 ML VIAL/AMP(20MG/ML) INFIL ONE ×2 (13:15)
[2019-10-12] MEDS ORDERED: PROPOFOL IV EMULSION 10 MG/ML 20 ML VIAL IV ONE (13:15)
[2019-10-12] MEDS ORDERED: SODIUM CHLORIDE 0.9% 1000ML 1,000 ML IV SCH (13:15)
--- NOTE | 2019-10-12 13:16 | GI REPORT ---
Patient Name: Char Pagan Procedure Date: 10/12/2019 12:43 PM Date of : 1950 Admit Type: Inpatient Age: 69 Gender: Female Attending MD: Kenan Sam MD Procedure: Upper GI endoscopy Providers: Kenan Sam MD Referring MD: Maury Peters Md Indications: Failure to thrive Medicines: Propofol total dose 120 mg IV, Ketamine 20 mg IV, Lidocaine 80 mg IV Complications: No immediate complications. Estimated Blood Loss: Estimated blood loss was minimal. Procedure: Pre-Anesthesia Assessment: - Prior to the procedure, a History and Physical was performed, and patient medications, allergies and sensitivities were reviewed. The patient's tolerance of previous anesthesia was reviewed. - The risks and benefits of the procedure and the sedation options and risks were discussed with the patient. All questions were answered and informed consent was obtained. After obtaining informed consent, the endoscope was passed under direct vision. Throughout the procedure, the patient's blood pressure, pulse, and oxygen saturations were monitored continuously. The Scope was introduced through the mouth, and advanced to the second part of duodenum. After obtaining informed consent, the endoscope was passed under direct vision. Throughout the procedure, the patient's blood pressure, pulse, and oxygen saturations were monitored continuously. The upper GI endoscopy was accomplished without difficulty. The patient tolerated the procedure well. Findings: The examined esophagus was normal. The examined duodenum was normal. The entire examined stomach was normal. Placement of an externally removable PEG with no T-fasteners was successfully completed. The external bumper was at the 3.0 cm marking on the tube. Estimated blood loss was minimal. Impression: - Normal esophagus. - Normal examined duodenum. - Normal stomach. - An externally removable PEG placement was successfully completed. - No specimens collected. Recommendation: - [facility]. Kenan Sam M.D. Kenan Sam MD 10/12/2019 1:16:17 PM This report has been signed electronically. Note Initiated On: 10/12/2019 12:43 PM Number of Addenda: 0 I attest to the content of the Intraoperative Record and orders documented therein, exceptions below {[id number]}
--- NOTE | 2019-10-12 13:23 | Progress Note ---
DATE: 10/12/2019 The patient agreed to proceed with a PEG tube today after discussions yesterday. Informed consent was obtained and she was brought to the medical treatment unit/endoscopy unit where PEG tube placement was undertaken. She had received Zosyn previously. The endoscopy was normal and a PEG tube was placed successfully in the anterior wall of the gastric body. This was a 20-Burmese tube and the external marking was at 3 cm. The tube was placed successfully with minimal bleeding. The tube can be used immediately. The patient will need a dietary consult for recommendations on the types and schedule for tube feedings and she will also need a care management to set up home nursing to arrange for her to get her feedings at home and instruct her in the care of the tube and how to administer the feedings.
--- NOTE | 2019-10-12 13:48 | Palliative Care Progress Note ---
Date of Service October 12, 2019 Assessment & Plan (1) Goals of care, counseling/discussion: -Patient has no new complaints. -Waiting for PEG tube placement. She is anxious to have it done and go back home. -Plan will be for patient to return home after hospitalization. -Many discussions about goals and code status in the past. Patient is full code and full treatment. Having said that, she is very realistic and open to talking about the progression of her disease and understands she is end-stage. Family has always been very supportive. (2) Aspiration pneumonia: (3) Choking: (4) Multiple sclerosis: Subjective Patient is awake and alert today. She is anxious to have PEG tube placed, but does not know what time she is going. No pain or discomfort. Review of Systems Review of Systems: Const: + weakness ENMT: + choking, + dysphagia Resp: No SOB, + moist but very weak cough Cardio: No chest pain, no edema GI: No abdominal pain, N/V MS: + quadriparesis Neuro: No confusion Psych: No anxiety, no depression Physical Exam Constitutional: + ill appearing and + physical limitations; no acute distress ENMT: external ear and nose normal, oropharynx normal Respiratory: normal respiratory effort; no labored breathing Auscultation: + diminished lung sounds Cardiovascular: RRR, no murmur, no edema Gastrointestinal (Abdomen): Inspection/Auscultation: normal bowel sounds Percussion/Palpation: abdomen soft; abdomen nontender Neurologic: awake; not confused Psychiatric: A+Ox3, euthymic affect Insight: good insight Results & Data Vital Signs (Past 12 Hours) Vital Signs Temp Pulse Resp BP BP Pulse Ox 10/12/19 13:34 85 16 139/75 136/90 95 10/12/19 13:18 86 16 132/80 136/90 97 10/12/19 11:41 36.5 C 77 16 136/90 97 10/12/19 11:32 36.6 C 79 16 137/80 97 10/12/19 07:17 36.6 C 86 16 128/69 96 10/12/19 06:58 81 20 98 10/12/19 04:30 36.5 C 86 20 139/77 94 Time Spent Midlevel 25 minutes with >50% of the time spent at bedside with patient discussing plan of care. (1) Aspiration pneumonia Aspiration pneumonia type: unspecified Laterality: right Lung location: lower lobe of lung Qualified Code(s): J69.0 - Pneumonitis due to inhalation of food and vomit (2) Choking Encounter type: initial encounter Qualified Code(s): T17.308A - Unspecified foreign body in larynx causing other injury, initial encounter
[2019-10-12] MEDS: TERBINAFINE HCL 250 MG TAB PO SCH (14:28)
--- NOTE | 2019-10-12 15:07 | Anesthesiology Progress Note ---
Date of Service October 12, 2019 Anesthesia Post Procedure Vital Signs Vital Signs: Temp Pulse Pulse Resp BP BP Pulse Ox 10/12/19 13:50 82 16 144/81 H 136/90 98 10/12/19 13:34 85 16 139/75 136/90 95 10/12/19 13:18 86 16 132/80 136/90 97 10/12/19 11:41 36.5 C 77 16 136/90 97 10/12/19 11:32 36.6 C 79 16 137/80 97 10/12/19 07:17 36.6 C 86 16 128/69 96 10/12/19 06:58 81 20 98 10/12/19 04:30 36.5 C 86 20 139/77 94 10/11/19 23:59 89 10/11/19 22:57 36.6 C 90 18 150/85 H 94 10/11/19 19:53 93 H 18 95 10/11/19 19:31 36.6 C 93 H 20 157/80 H 94 10/11/19 16:26 103 H 10/11/19 15:32 36.4 C L 101 H 20 142/88 H 92 Transfer of Care Handoff Completed per policy Notes Mental Status: alert / awake / arousable Patient Amnestic to Procedure: Yes Nausea / Vomiting: adequately controlled Pain: adequately controlled Airway Patency, RR, SpO2: stable & adequate BP & HR: stable & adequate Hydration State: stable & adequate Anesthetic Complications: no major complications apparent and Pt Satisfied with anesthetic care
[2019-10-12] MEDS: FIBERSOURCE HN 1.2 CAL 1000 ML BAG GT SCH (19:00)
[2019-10-12] MEDS: HYDROCORTISONE ACETATE 25 MG SUPP PR SCH (20:14)
--- NOTE | 2019-10-12 22:23 | Hospitalist Progress Note ---
Date of Service October 12, 2019 Assessment & Plan (1) Aspiration pneumonia: - Admit to [facility] with tele, request bed close to nursing as she has difficulty signalling, request mouth call button - RLL involvement as seen on CXR - Continue zosyn IV - Check MRSA nasal swab - Consult GI, Dr. Palmer, for feeding tube placement -Feeding tube was placed. Consulted nutrition, will start tube feedings. Patient will likely stay here the weekend. - IV Zofran, Tylenol as needed - Pulmonary toilet with Mucinex, Tessalon Perles, flutter, incentive spirometry -will continue to monitor for now. (2) Multiple sclerosis: - Hx of such for >15 years, wheelchair-bound, unable to use upper extremities, requires straight cath 3 times daily, patient is able to void on her own approximately twice per day, bladder scan ordered. - Continue baclofen and scopolamine - Code was discussed with family, full code, appreciate palliative care input regarding goals of care. (3) S/P insertion of intrathecal pump: - Continue baclofen pump, follows with Dr. Shukla as outpatient - Dosing to be confirmed by pharmacy (4) Spasticity: - Seconday to MS, continue baclofen as above (5) External hemorrhoid: - Per pt report. 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 D/W palliative care team as well Subjective Patient reports feeling well. He has no new complaints. Review of Systems Review of Systems: Constitutional: No fever, sweats or chills Eyes: No diplopia, no worsening or blurred vision ENT: normal hearing, no trouble swallowing Respiratory: + Cough, no sputum, no dyspnea at rest or on exertion Cardiovascular: No chest pain, tightness or palpitations Abdomen: No pain, nausea, vomiting, diarrhea or constipation Musculoskeletal: No joint pain, calf pain, swelling Neurologic: No weakness, numbness/tingling, or balance problems Psychiatric: No anxiety or depression Skin: No rash or itch Physical Exam Physical Exam: General: awake, alert, no apparent distress Head: Normocephalic, atraumatic ENT: PERRL, EOMI, no pharyngeal exudate, mucous membranes moist Chest: +Coarse breath sounds throughout, no wheeze Cardiac: Regular rate and rhythm, no murmur, no JVD, normal peripheral pulses, good capillary refill Abdominal: NABS x 4 quadrants, soft, nontender to palpation, no rebound, guarding or tenderness Extremities: +atrophy diffusely, skin intact, no breakdown, no peripheral edema or erythema, calfs nontender to palpation Psych: Normal mood and affect Neuro: AAO x 3, inability to move extremities no motor deficits, speech is somewhat clear, no peripheral sensory deficits Results & Data Vital Signs (Past 12 Hours) Vital Signs Temp Pulse Pulse Resp BP BP Pulse Ox 10/12/19 19:47 94 H 20 96 10/12/19 19:03 36.4 C L 94 H 19 148/76 H 94 10/12/19 16:16 89 10/12/19 15:34 36.4 C L 82 18 149/82 H 97 10/12/19 13:50 82 16 144/81 H 136/90 98 10/12/19 13:34 85 16 139/75 136/90 95 10/12/19 13:18 86 16 132/80 136/90 97 10/12/19 11:41 36.5 C 77 16 136/90 97 10/12/19 11:32 36.6 C 79 16 137/80 97 PG Care Time/CCT Total # of Minutes Spent Total Time Spent with Patient: Total time spent is greater than 50% in coordination of care (as documented) at patient's floor/unit and/or counseling patient:
[2019-10-13] MEDS: CHECK SCOPOLAMINE PATCH PLACEMENT SCH ×3 (00:07→16:40)
[2019-10-13] MEDS: PIPERACILLIN/TAZOBACTAM 3.375 GM in DEXTROSE 5% 100 ML IV SCH ×3 (03:09→21:01)
[2019-10-13] MEDS: ALBUTEROL 0.083% NEBU SOLN 3 ML VIAL INH SCH ×3 (07:20→19:32)
[2019-10-13 07:33] LABS: Hematocrit (blood only) 35.2 % (37-47); Hemoglobin 11.3 g/dL (12.0-16.0); Mean Corpuscular Hemoglobin 29.9 pg (25-34); Mean Corpuscular Hgb Conc 32.1 g/dL (32-36); Mean Corpuscular Volume 93.1 fL (80-100); Mean Platelet Volume 9.4 fL (7.4-10.4); Platelet Count 349 K/uL (130-400); RDW Coefficient of Variation 16.8 % (11.5-14.5); Red Blood Count 3.78 M/uL (4.2-5.4); White Blood Count 9.12 K/uL (4.8-10.8)
[2019-10-13 08:01] LABS: Albumin Level 2.3 gm/dl (3.4-5.0); Calcium 9.2 mg/dl (8.5-10.1); Est GFR (African American) 136.4; Est GFR (Non-African American) 117.7; Potassium 3.3 mmol/L (3.5-5.1)
[2019-10-13 08:04] LABS: Albumin Globulin Ratio 0.5 (0.9-2); Bilirubin,Total 0.3 mg/dl (0.2-1); Globulin 4.3 gm/dl (2.5-4.0); Total Protein 6.6 gm/dl (6.4-8.2)
[2019-10-13] MEDS: FLUTICASONE PROPIONATE NA SPR 16 GM BTL SCH ×2 (08:47→21:10)
[2019-10-13] MEDS: TERBINAFINE HCL 250 MG TAB PO SCH (08:47)
[2019-10-13] MEDS: LACTOBACILLUS ACIDOPHILUS (FLORANEX) TAB PO SCH (08:47)
[2019-10-13] MEDS: ENOXAPARIN INJ 30 MG/0.3 ML SYR SQ SCH (08:48)
[2019-10-13] MEDS: NYSTATIN CR 15 GM TUBE EXT SCH ×3 (08:48→21:10)
[2019-10-13] MEDS: MULTIVITAMIN TAB PO SCH (08:48)
[2019-10-13] MEDS: guaiFENesin 600 MG TABCR PO SCH ×2 (08:48→21:03)
[2019-10-13] MEDS: CALCIUM CARBONATE 1250MG TAB PO SCH ×3 (08:48→21:11)
[2019-10-13] MEDS: CHOLECALCIFEROL (VITAMIN D) 400 UNITS TABLET PO SCH (08:49)
[2019-10-13] MEDS: SODIUM CHLORIDE 0.9% 1000ML 1,000 ML IV SCH ×2 (08:50→21:49)
--- NOTE | 2019-10-13 10:14 | Anesthesiology Progress Note ---
Date of Service October 13, 2019 Anesthesia Post Procedure Vital Signs Vital Signs: Temp Pulse Pulse Resp BP BP Pulse Ox 10/13/19 10:09 66 10/13/19 07:21 79 17 95 10/13/19 07:04 36.8 C 75 18 120/80 99 10/13/19 04:04 36.6 C 86 20 128/80 96 10/13/19 00:55 94 H 10/13/19 00:04 37.2 C 87 20 145/79 H 98 10/12/19 19:47 94 H 20 96 10/12/19 19:03 36.4 C L 94 H 19 148/76 H 94 10/12/19 16:16 89 10/12/19 15:34 36.4 C L 82 18 149/82 H 97 10/12/19 13:50 82 16 144/81 H 136/90 98 10/12/19 13:34 85 16 139/75 136/90 95 10/12/19 13:18 86 16 132/80 136/90 97 10/12/19 11:41 36.5 C 77 16 136/90 97 10/12/19 11:32 36.6 C 79 16 137/80 97 Notes Mental Status: alert / awake / arousable Patient Amnestic to Procedure: Yes Nausea / Vomiting: adequately controlled Pain: adequately controlled Airway Patency, RR, SpO2: stable & adequate BP & HR: stable & adequate Hydration State: stable & adequate Anesthetic Complications: no major complications apparent and Pt Satisfied with anesthetic care
--- NOTE | 2019-10-13 11:07 | Progress Note ---
DATE: 10/13/2019 The patient underwent PEG tube placement yesterday successfully. Today, the patient is not experiencing any pain. On exam, vital signs are normal. She is afebrile. Her gastrostomy tube site looks normal. There are no inflammation. The tube was easily mobilized. Plans are in place for the patient to get tube feedings and hopefully assistance at home with some home nursing. Once these are in place, she should be able to be discharged. At this point, I will sign off unless further GI input is needed.
[2019-10-13] MEDS: POTASSIUM CHLORIDE PWD 20 MEQ PACK PO SCH ×2 (12:38→21:11)
[2019-10-13] MEDS: FIBERSOURCE HN 1.2 CAL 1000 ML BAG GT SCH (19:02)
[2019-10-13] MEDS: HYDROCORTISONE ACETATE 25 MG SUPP PR SCH (21:04)
--- NOTE | 2019-10-13 21:18 | Hospitalist Progress Note ---
Date of Service October 13, 2019 Assessment & Plan (1) Aspiration pneumonia: - Admit to [facility] with tele, request bed close to nursing as she has difficulty signalling, request mouth call button - RLL involvement as seen on CXR - Continue zosyn IV - Check MRSA nasal swab - Consult GI, Dr. Palmer, for feeding tube placement -Feeding tube was placed on 10/12 Consulted nutrition, will start tube feedings on 10/12 Patient will likely stay here the weekend. If tolerates tube feeding, will discharge on Tuesday. - IV Zofran, Tylenol as needed - Pulmonary toilet with Mucinex, Tessalon Perles, flutter, incentive spirometry -will continue to monitor for now. (2) Multiple sclerosis: - Hx of such for >15 years, wheelchair-bound, unable to use upper extremities, requires straight cath 3 times daily, patient is able to void on her own approximately twice per day, bladder scan ordered. - Continue baclofen and scopolamine - Code was discussed with family, full code, appreciate palliative care input regarding goals of care. (3) S/P insertion of intrathecal pump: - Continue baclofen pump, follows with Dr. Shukla as outpatient - Dosing to be confirmed by pharmacy (4) Spasticity: - Seconday to MS, continue baclofen as above (5) External hemorrhoid: - Per pt report. (6) DVT prophylaxis: - teds, lovenox subQ 30 mg daily CODE: Full Code Dispo: From home, lives with and has director multimedia caregiver, CM to assist with dc planning. D/W palliative care team as well Subjective Patient reports doing well. She is tolerating tube feedings. Review of Systems Review of Systems: Constitutional: No fever, sweats or chills Eyes: No diplopia, no worsening or blurred vision ENT: normal hearing, no trouble swallowing Respiratory: + Cough, no sputum, no dyspnea at rest or on exertion Cardiovascular: No chest pain, tightness or palpitations Abdomen: No pain, nausea, vomiting, diarrhea or constipation Musculoskeletal: No joint pain, calf pain, swelling Neurologic: No weakness, numbness/tingling, or balance problems Psychiatric: No anxiety or depression Skin: No rash or itch Physical Exam Physical Exam: General: awake, alert, no apparent distress Head: Normocephalic, atraumatic ENT: PERRL, EOMI, no pharyngeal exudate, mucous membranes moist Chest: +Coarse breath sounds throughout, no wheeze Cardiac: Regular rate and rhythm, no murmur, no JVD, normal peripheral pulses, good capillary refill Abdominal: NABS x 4 quadrants, soft, nontender to palpation, no rebound, guarding or tenderness Extremities: +atrophy diffusely, skin intact, no breakdown, no peripheral edema or erythema, calfs nontender to palpation Psych: Normal mood and affect Neuro: AAO x 3, inability to move extremities no motor deficits, speech is somewhat clear, no peripheral sensory deficits R Results & Data Vital Signs (Past 12 Hours) Vital Signs Temp Pulse Pulse Resp BP BP Pulse Ox 10/13/19 19:32 79 18 97 10/13/19 19:00 36.5 C 84 23 150/83 H 97 10/13/19 15:00 84 10/13/19 14:53 36.4 C L 87 18 152/83 H 96 10/13/19 13:15 90 17 95 10/13/19 11:29 36.6 C 76 18 131/77 99 10/13/19 10:09 66 PG Care Time/CCT Total # of Minutes Spent Total Time Spent with Patient: Total time spent is greater than 50% in coordination of care (as documented) at patient's floor/unit and/or counseling patient:
[2019-10-14] MEDS: CHECK SCOPOLAMINE PATCH PLACEMENT SCH ×3 (00:04→16:31)
[2019-10-14] MEDS: PIPERACILLIN/TAZOBACTAM 3.375 GM in DEXTROSE 5% 100 ML IV SCH ×3 (03:35→21:02)
[2019-10-14] MEDS: ALBUTEROL 0.083% NEBU SOLN 3 ML VIAL INH SCH ×3 (06:52→19:23)
[2019-10-14] MEDS: FLUTICASONE PROPIONATE NA SPR 16 GM BTL SCH ×2 (09:38→21:13)
[2019-10-14] MEDS: POTASSIUM CHLORIDE PWD 20 MEQ PACK PO SCH ×3 (09:39→21:14)
[2019-10-14] MEDS: TERBINAFINE HCL 250 MG TAB PO SCH (09:39)
[2019-10-14] MEDS: LACTOBACILLUS ACIDOPHILUS (FLORANEX) TAB PO SCH (09:39)
[2019-10-14] MEDS: ENOXAPARIN INJ 30 MG/0.3 ML SYR SQ SCH (09:39)
[2019-10-14] MEDS: CALCIUM CARBONATE 1250MG TAB PO SCH ×3 (09:40→21:14)
[2019-10-14] MEDS: NYSTATIN CR 15 GM TUBE EXT SCH ×3 (09:40→21:14)
[2019-10-14] MEDS: MULTIVITAMIN TAB PO SCH (09:40)
[2019-10-14] MEDS: guaiFENesin 600 MG TABCR PO SCH ×2 (09:40→21:14)
[2019-10-14] MEDS: SCOPOLAMINE 1.5 MG TDSY TD SCH (09:41)
[2019-10-14] MEDS: CHOLECALCIFEROL (VITAMIN D) 400 UNITS TABLET PO SCH (09:41)
[2019-10-14] MEDS: SODIUM CHLORIDE 0.9% 1000ML 1,000 ML IV SCH ×2 (09:42→23:10)
[2019-10-14] MEDS ORDERED: bisacodyL 10 MG SUPP PR STA (16:24)
[2019-10-14] MEDS: FIBERSOURCE HN 1.2 CAL 1000 ML BAG GT SCH (19:05)
[2019-10-14] MEDS: HYDROCORTISONE ACETATE 25 MG SUPP PR SCH (21:04)
--- NOTE | 2019-10-14 21:48 | Hospitalist Progress Note ---
Date of Service October 14, 2019 Assessment & Plan (1) Aspiration pneumonia: - Admit to [facility] with tele, request bed close to nursing as she has difficulty signalling, request mouth call button - RLL involvement as seen on CXR - Continue zosyn IV - Check MRSA nasal swab - Consult GI, Dr. Palmer, for feeding tube placement -Feeding tube was placed on 10/12 Consulted nutrition, will start tube feedings on 10/12 Patient will likely stay here the weekend. If tolerates tube feeding, will discharge on Tuesday. - IV Zofran, Tylenol as needed - Pulmonary toilet with Mucinex, Tessalon Perles, flutter, incentive spirometry -will continue to monitor for now. (2) Multiple sclerosis: - Hx of such for >15 years, wheelchair-bound, unable to use upper extremities, requires straight cath 3 times daily, patient is able to void on her own approximately twice per day, bladder scan ordered. - Continue baclofen and scopolamine - Code was discussed with family, full code, appreciate palliative care input regarding goals of care. (3) S/P insertion of intrathecal pump: - Continue baclofen pump, follows with Dr. Shukla as outpatient - Dosing to be confirmed by pharmacy (4) Spasticity: - Seconday to MS, continue baclofen as above (5) External hemorrhoid: - Per pt report. (6) Mild protein-calorie malnutrition: due to her dysphagia. placed peg tube. tolerating feedings. (7) DVT prophylaxis: - teds, lovenox subQ 30 mg daily CODE: Full Code Dispo: From home, lives with and has title coordinator caregiver, CM to assist with dc planning. D/W palliative care team as well Plan to discharge on tuesday. Subjective Patient reports no new symptoms. Review of Systems Review of Systems: Constitutional: No fever, sweats or chills Eyes: No diplopia, no worsening or blurred vision ENT: normal hearing, no trouble swallowing Respiratory: + Cough, no sputum, no dyspnea at rest or on exertion Cardiovascular: No chest pain, tightness or palpitations Abdomen: No pain, nausea, vomiting, diarrhea or constipation Musculoskeletal: No joint pain, calf pain, swelling Neurologic: No weakness, numbness/tingling, or balance problems Psychiatric: No anxiety or depression Skin: No rash or itch Physical Exam Physical Exam: General: awake, alert, no apparent distress Head: Normocephalic, atraumatic ENT: PERRL, EOMI, no pharyngeal exudate, mucous membranes moist Chest: +Coarse breath sounds throughout, no wheeze Cardiac: Regular rate and rhythm, no murmur, no JVD, normal peripheral pulses, good capillary refill Abdominal: NABS x 4 quadrants, soft, nontender to palpation, no rebound, guarding or tenderness Extremities: +atrophy diffusely, skin intact, no breakdown, no peripheral edema or erythema, calfs nontender to palpation Psych: Normal mood and affect Neuro: AAO x 3, inability to move extremities no motor deficits, speech is so mewhat clear, no peripheral sensory deficits Results & Data Vital Signs (Past 12 Hours) Vital Signs Temp Pulse Pulse Resp BP Pulse Ox 10/14/19 20:22 36.6 C 101 H 18 174/91 H 93 10/14/19 19:23 101 H 16 93 10/14/19 16:00 93 H 10/14/19 15:20 36.3 C L 91 H 18 157/85 H 94 10/14/19 13:19 80 18 94 10/14/19 12:11 126 H 10/14/19 10:46 36.7 C 84 20 128/73 94 10/14/19 10:30 68 PG Care Time/CCT Total # of Minutes Spent Total Time Spent with Patient: Total time spent is greater than 50% in coordination of care (as documented) at patient's floor/unit and/or counseling patient:
[2019-10-15] MEDS: CHECK SCOPOLAMINE PATCH PLACEMENT SCH ×2 (00:13→09:15)
[2019-10-15] MEDS: PIPERACILLIN/TAZOBACTAM 3.375 GM in DEXTROSE 5% 100 ML IV SCH ×2 (03:57→11:42)
[2019-10-15] MEDS: ALBUTEROL 0.083% NEBU SOLN 3 ML VIAL INH SCH ×2 (07:05→13:25)
--- NOTE | 2019-10-15 07:45 | Anesthesiology Progress Note ---
Date of Service October 15, 2019 Anesthesia Post Procedure Vital Signs Vital Signs: Temp Pulse Pulse Resp BP Pulse Ox 10/15/19 07:07 98 H 18 96 10/15/19 03:57 36.7 C 86 20 153/89 H 96 10/15/19 01:37 85 10/15/19 00:15 36.5 C 90 19 162/97 H 94 10/14/19 20:22 36.6 C 101 H 18 174/91 H 93 10/14/19 19:23 101 H 16 93 10/14/19 16:00 93 H 10/14/19 15:20 36.3 C L 91 H 18 157/85 H 94 10/14/19 13:19 80 18 94 10/14/19 12:11 126 H 10/14/19 10:46 36.7 C 84 20 128/73 94 10/14/19 10:30 68 10/14/19 07:47 36.6 C 74 20 144/81 H 95 Notes Mental Status: alert / awake / arousable and participated in evaluation Patient Amnestic to Procedure: Yes Pain: adequately controlled Airway Patency, RR, SpO2: stable & adequate BP & HR: stable & adequate Anesthetic Complications: no major complications apparent
[2019-10-15 08:32] LABS: Albumin Level 2.8 gm/dl (3.4-5.0); BUN Creatinine Ratio 23.3 (10-20); Calcium 10.1 mg/dl (8.5-10.1); Creatinine Clr Calc Pharmacy 157.5 ml/min; Est GFR (African American) 133.5; Est GFR (Non-African American) 115.2; Magnesium 2.1 mg/dl (1.8-2.4); Potassium 4.1 mmol/L (3.5-5.1)
[2019-10-15 08:34] LABS: Albumin Globulin Ratio 0.6 (0.9-2); Bilirubin,Total 0.3 mg/dl (0.2-1); Globulin 4.8 gm/dl (2.5-4.0); Phosphorus 2.2 mg/dl (2.5-4.9); Total Protein 7.6 gm/dl (6.4-8.2)
[2019-10-15] MEDS: TERBINAFINE HCL 250 MG TAB PO SCH (09:14)
[2019-10-15] MEDS: guaiFENesin 600 MG TABCR PO SCH (09:14)
[2019-10-15] MEDS: FLUTICASONE PROPIONATE NA SPR 16 GM BTL SCH (09:14)
[2019-10-15] MEDS: ENOXAPARIN INJ 30 MG/0.3 ML SYR SQ SCH (09:14)
[2019-10-15] MEDS: LACTOBACILLUS ACIDOPHILUS (FLORANEX) TAB PO SCH (09:14)
[2019-10-15] MEDS: POTASSIUM CHLORIDE PWD 20 MEQ PACK PO SCH (09:14)
[2019-10-15] MEDS: NYSTATIN CR 15 GM TUBE EXT SCH ×2 (09:15→14:04)
[2019-10-15] MEDS: CALCIUM CARBONATE 1250MG TAB PO SCH ×2 (09:15→14:04)
[2019-10-15] MEDS: MULTIVITAMIN TAB PO SCH (09:15)
[2019-10-15] MEDS: CHOLECALCIFEROL (VITAMIN D) 400 UNITS TABLET PO SCH (09:15)
--- NOTE | 2019-10-15 15:23 | Discharge Summary ---
Date of Service October 15, 2019 Admission HPI Per Admitting Provider This is a 69 yo F with PMHx of MS on baclofen pump, urinary retention requiring daily straight caths, recurrent UTIs, external hemorrhoids and prior admission about 1 week ago for pneumonia which was likely secondary to aspiration due to MS. Prior to this she was admitted in July 2019 for RLL pneumonia. Today the patient presents for worsening ability to swallow food without choking. She was recently admitted and was allowed to go home with the expectation of having follow-up with GI for feeding tube placement. She has never established with any other GI provider before. Her and caregiver are present at bedside and they report that she is having increased difficulty for the past 5 days with thickened liquids and solid foods. She reports having a rattling cough. Denies sputum production. Denies fevers, sweats or chills. She has been wheelchair- bound for at least 15 years. Patient requires straight cath 3 times per day, and is able to void on her own 2 other times per day at baseline. Admission Exam Per Admitting Provider General: awake, alert, no apparent distress Head: Normocephalic, atraumatic ENT: PERRL, EOMI, no pharyngeal exudate, mucous membranes moist Chest: +Coarse breath sounds throughout, + crackles, worse in the RLL, on room air, no wheeze Cardiac: Regular rate and rhythm, no murmur, no JVD, normal peripheral pulses, good capillary refill Abdominal: NABS x 4 quadrants, soft, nontender to palpation, no rebound, guarding or tenderness Extremities: +atrophy diffusely, skin intact, no breakdown, no peripheral edema or erythema, calfs nontender to palpation Psych: Normal mood and affect Neuro: AAO x 3, inability to move extremities no motor deficits, speech is clear, no peripheral sensory deficits Principal Diagnosis Progression of multiple sclerosis Difficulty swallowing Aspiration Pneumonia Hypokalemia Discharge Exam Constitutional + ill appearing, + cachectic, + physical limitations and + frail appearing; no acute distress Eyes + anicteric sclerae; normal pupil size ENMT Mouth: + dry oral mucous membranes Neck normal visual inspection and trachea midline Respiratory normal respiratory effort; no labored breathing, no retractions and does not use accessory muscles Auscultation: + rhonchi (b/l); breath sounds present and no diminished lung sounds Cardiovascular Rate/Rhythm: regular rate and regular rhythm Heart Sounds: no murmur Extremities: no pedal edema Gastrointestinal (Abdomen) Inspection/Auscultation: normal bowel sounds; abdomen not distended Percussion/Palpation: abdomen soft; abdomen nontender, no guarding and abdomen not rigid Skin no rashes, warm and dry Neurologic awake; + does not move all extremities (unable to move both lower extremities and weakness of upper extremities) and not confused Psychiatric A+Ox3, euthymic affect Insight: good insight Discharge Data Allergies Allergy/AdvReac Type Severity Reaction Status Date / Time No Known Allergies Allergy Verified 10/10/19 14:36 Consultations 10/10/19 14:41 ED Decision to Admit Stat 10/10/19 17:05 Consult Case Management - Discharge Planning Routine Consult Gastroenterology Routine Consult Palliative Care Routine Procedures Performed Operation Date: 10/12/19 17:00 Actual Procedures p EGD Gastric Tube Placement - [facility] (1) Multiple sclerosis: Char Pagan was admitted to [facility] from October 10 to 2018 due to worsening eating and swallowing due to her progressive multiple sclerosis. She requested a PEG tube as previously discussed on this admission. PEG tube was placed on October 12 and tube feedings started overnight. She will continue on Fibersource HN @ 60ml/hr over 12 hours from [id number]. These will continue at home to start during the night on the day after discharge. She elected to continue to risk feed and main reason for PEG tube feeding was to increase nutrition rather than due to aspirations. Recommend continuing on a minced and moist diet (for comfort), no straws, general aspiration precautions. If possible keep head of your bed elevated to around 30 degrees at night to avoid risk of aspiration on tube feeds. In addition you were diagnosed with recurrent aspiration pneumonia based mainly on chest XR findings treated with IV Zosyn while admitted. She will be switched to Augmentin for 3 additional days on discharge but this was not the main reason for her admission. (2) Aspiration pneumonia: (3) S/P insertion of intrathecal pump: (4) Spasticity: (5) External hemorrhoid: (6) Mild protein-calorie malnutrition: Total Time Total Time Spent Total Time Spent (In Minutes): 45 Discharge Plan Discharge Items Patient Disposition: Home - Home Health Services Reason For Visit: ASPIRATION PNEUMONIA, FEEDING TUBE PLACEMENT Discharge Diagnosis: Multiple sclerosis Aspiration Pneumonia Condition on Discharge: Fair Activity: Resume your previous activity Non-emergency contact: Primary Care Provider Call non-emergency contact if: you have any medication questions and your temperature is above 101 Follow-up/Referrals: Maury Johnston MD [Primary Care Provider] - 10/24/19 10:30 am (Please, follow up with Dr. Johnston on TuesdayOctober 24 at 10:30 am. *If you need to change this appointment, call the office at [phone].) Dietitian Info: Minced and moist Diet: Regular Addtl Attending Provider Instructions: You were admitted to [facility] from October 10 to 2018 due to difficulty eating and swallowing. This is due to progression of your multiple sclerosis and discussed whether you would want a feeding tube placed. PEG tube was placed on October 12 and tube feedings started overnight. These will continue at home to start during the night on the day after discharge. Recommend continuing on a minced and moist diet (for comfort), no straws, general aspiration precautions. If possible keep head of your bed elevated to around 30 degrees at night to avoid risk of aspiration on tube feeds. In addition you were diagnosed with recurrent aspiration pneumonia and treated with intravenous antibiotics while admitted. You will be switched to Augmentin for 3 additional days on discharge. Pending Studies at Discharge: No Stand-Alone Forms: My [facility], Smoking Cessation Medications and DC Order Prescriptions: New amoxicillin-pot clavulanate [Augmentin] 875-125 mg tablet 1 tab PO BID 3 Days Qty: 6 RF: 0 potassium chloride 20 mEq tablet extended release 20 meq PO DAILY Qty: 30 RF: 0 Continued terbinafine HCl 250 mg tablet 250 mg PO DAILY RF: 0 multivitamin Tablet 1 tab PO QAM RF: 0 calcium carbonate [Calcium 500] 500 mg calcium (1,250 mg) Tablet 1 tab PO TID RF: 0 risedronate [Actonel] 35 mg Tablet 1 tab PO WK RF: 0 baclofen 2,000 mcg/mL Solution 0 mcg continuous intrathecal infusion CONTINOUS RF: 0 albuterol sulfate [ProAir HFA] 90 mcg/actuation Hfa Aerosol Inhaler 2 puff INHALATION Q4 PRN (Reason: Shortness Of Breath Or Wheezing) RF: 0 Ocrevus 30 mg/mL Solution 300 mg IV .[id number] RF: 0 fluticasone propionate 50 mcg/actuation Sesser,Suspension 2 spry NA BID Qty: 1 RF: 0 hydrocortisone acetate [Anusol-HC] 25 mg suppository 25 mg WI HS Qty: 24 RF: 0 albuterol sulfate 2.5 mg /3 mL (0.083 %) solution for nebulization 0 mg inhalation TID RF: 0 nystatin 100,000 unit/gram cream 1 applic TOPICAL TID RF: 0 scopolamine base 1 mg over 3 days patch 3 day 1 patch transdermal UD RF: 0 cholecalciferol (vitamin D3) [Vitamin D3] 400 unit Capsule 400 unit PO QAM RF: 0 Probiotic 3 billion cell Capsule 3,000 mmu cells PO QAM RF: 0 ipratropium-albuterol 0.5 mg-3 mg(2.5 mg base)/3 mL solution for nebulization 3 ml INH QID PRN (Reason: wheezing) Qty: 180 RF: 0 Discharge Orders: Discharge Order (Routine); Ordered 10/15/19 Ordered By: Narinder Means Admission Data Admit Date/Time: 10/10/19 15:27 Attending Provider: Narinder Means Admit Provider: Delia Ocampo Primary Care Provider: Maury Johnston Other Providers: Delia Ocampo ; Katherin Ny ; Kenan Sam ; [facility] Other Interventions: Discharge Summary Assessment (RN) Last Done: 10/15/19 15:27 DC Date/Time DO NOT enter until pt leaves facility: 10/15/19 16:05
== END 2019-10-15 16:05 | disposition home health service (06) | DRG 58 ==
LOC: ED 12:12 → 2N 15:27 → SUATTDRO 15:27 → 2N 16:41